=== PATIENT | female | born 1955 | race Two or more races ===

== ENCOUNTER 2019-12-11 11:33 | Outpatient (REF) | payer MEDICARE, SELFPAY | END 2019-12-11 11:34 | disposition home or self-care (01) | LOC: HO.WFDLDS 11:33 | PROVIDERS: Visit Provider Internal Medicine | DX: Z20.828 Contact with and (suspected) exposure to other viral communicable diseases (principal) | CPT/HCPCS: 87635 ==

== ENCOUNTER 2020-01-02 11:50 | Outpatient (REF) | payer MEDICARE, SELFPAY | END 2020-01-02 11:51 | disposition home or self-care (01) | LOC: HO.WFDLDS 11:50 | PROVIDERS: Visit Provider Internal Medicine | DX: Z20.828 Contact with and (suspected) exposure to other viral communicable diseases (principal) | CPT/HCPCS: U0003 ==

== ENCOUNTER 2020-03-21 10:27 | Outpatient (REF) | payer MEDICARE, SELFPAY | END 2020-03-21 10:28 | disposition home or self-care (01) | LOC: HO.WFDLDS 10:27 | PROVIDERS: Visit Provider Internal Medicine | DX: Z20.822 Contact with and (suspected) exposure to COVID-19 (principal) | CPT/HCPCS: 36415; C9803; U0003 ==

== ENCOUNTER 2020-04-18 08:24 | Outpatient (REF) | payer MEDICARE, SELFPAY ==
--- NOTE | ~2020-04-18 | MM_ITS ---
EXAMINATION: MM SCREENING DIGITAL BREAST TOMOSYNTHESIS, BILATERAL CLINICAL INFORMATION: Screening. Asymptomatic. The lifetime risk of breast cancer based on the Tyrer-Cuzick Model is 4%. COMPARISON: Mammography: 08/31/2018, 08/12/2017, 07/23/2016 TECHNIQUE: Digital breast tomosynthesis is performed in both the craniocaudal and mediolateral oblique views along with computer-aided detection (CAD). Synthesized 2D images are generated from the tomosynthesis. Additional bilateral CC views are provided. FINDINGS: There are scattered areas of fibroglandular density (ACR BI-RADS breast composition Category b). There are no significant masses, abnormal calcifications, or other abnormalities. There is a stable posterior central left breast approximately 1.6 x 1.3 cm. A smaller nodule anterior central left breast is decreased in size, now 0.4 cm. No significant changes from prior studies. MM/MM tomosynthesis screening BI IMPRESSION: No mammographic evidence of malignancy. ASSESSMENT: BI-RADS 2: Benign RECOMMENDATION: Routine annual mammography screening. This patient's information was entered into a reminder system with a target due date for their next mammogram.
== END 2020-04-18 08:25 | disposition home or self-care (01) ==
LOC: HO.MAMMO 08:24
PROVIDERS: Visit Provider Pediatrics
DX: Z12.31 Encounter for screening mammogram for malignant neoplasm of breast (principal)
CPT/HCPCS: 77063; 77067

== ENCOUNTER 2020-06-03 08:17 | Outpatient (REF) | payer MEDICARE, SELFPAY ==
[2020-06-03 10:48] LABS: Glucose Urine UA NEG (NEG); Leukocyte Esterase Urine NEG (NEG); Nitrite Urine NEG (NEG); Urine Blood NEG (NEG); Urine Ketones NEG (NEG); Urine Protein NEG (NEG-TRACE)
[2020-06-03 10:55] LABS: Alanine Aminotransferase 27 U/L (0-31); Albumin Level 4.2 g/dL (3.5-5.0); Alkaline Phosphatase 78 U/L (39-117); Anion Gap 12 (12-20); Aspartate Amino Transferase 24 U/L (5-31); Bilirubin Total 0.2 mg/dL (0.0-1.0); Blood Urea Nitrogen 13 mg/dL (9-16); Calcium 9.5 mg/dL (8.4-10.2); Carbon Dioxide 28 mmol/L (22-29); Chloride 105 mmol/L (96-108); Cholesterol 116 mg/dL; Estimated Glomerular Filt Rate > 60; Glucose Fasting 193 mg/dL (60-99); HDL Cholesterol 52 mg/dL; LDL Cholesterol Calculated 46 mg/dl; Sodium 140 mmol/L (135-145); Total Protein 7.2 g/dL (6.5-8.0); Triglycerides 91 mg/dL
[2020-06-03 11:09] LABS: Appearance Urine CLEAR; Color Urine YELLOW
[2020-06-03 11:16] LABS: TSH reflex Free T4 0.91 uIU/mL (0.32-4.0); Vitamin D 25-OH Total 77.8 ng/mL (>30)
[2020-06-03 11:25] LABS: Creatinine Urine 61.63 mg/dL; Microalbumin Urine < 5.0 mg/L
== END 2020-06-03 08:18 | disposition home or self-care (01) ==
LOC: HO.WFDLDS 08:17
PROVIDERS: Visit Provider Family Medicine
DX: Z00.00 Encounter for general adult medical examination without abnormal findings (principal); I10 Essential (primary) hypertension; E55.9 Vitamin D deficiency, unspecified; E11.9 Type 2 diabetes mellitus without complications; E03.9 Hypothyroidism, unspecified; E78.5 Hyperlipidemia, unspecified
CPT/HCPCS: 36415; 80053; 80061; 81003; 82043; 82306; 84443

== ENCOUNTER 2021-03-03 08:16 | Outpatient (REF) | payer MEDICARE, SELFPAY ==
[2021-03-03 11:36] LABS: Estimated Average Glucose 192 mg/dL; Hemoglobin A1c % 8.3 %
== END 2021-03-03 08:17 | disposition home or self-care (01) ==
LOC: HO.WFDLDS 08:16
PROVIDERS: Visit Provider Family Medicine
DX: R73.01 Impaired fasting glucose (principal)
CPT/HCPCS: 36415; 83036

== ENCOUNTER → 2021-03-26 15:07 | Outpatient (REF) | payer MEDICARE, SELFPAY ==
--- NOTE | 2021-03-26 15:09 | HM_ITS ---
Total monitoring time 6 days and 2 hours. Underlying rhythm is sinus. Minimum rate 44/Min. Maximum 160/Min. Average 80/Min. No atrial fibrillation or flutter or AV blocks or pauses. Rare supraventricular ectopy with minimal burden. 24 supraventricular episodes, longest 10 beats. Very rare ventricular ectopy. No patient events. MTDD
== END ==
LOC: HO.CARD 15:07
PROVIDERS: Visit Provider Family Medicine
DX: R00.0 Tachycardia, unspecified (principal); R00.2 Palpitations
CPT/HCPCS: 93242

== ENCOUNTER 2021-04-30 08:21 | Outpatient (REF) | payer MEDICARE, SELFPAY ==
--- NOTE | ~2021-04-30 | MM_ITS ---
EXAMINATION: MM SCREENING DIGITAL BREAST TOMOSYNTHESIS, BILATERAL CLINICAL INFORMATION: Screening. Asymptomatic. The lifetime risk of breast cancer based on the Tyrer-Cuzick Model is 4%. COMPARISON: Mammography: 04/18/2020, 08/31/2018, 08/12/2017, 07/23/2016, 04/16/2015, 03/20/2014 TECHNIQUE: Digital breast tomosynthesis is performed in both the craniocaudal and mediolateral oblique views along with computer-aided detection (CAD). Synthesized 2D images are generated from the tomosynthesis. Additional right CC and left MLO views are provided. FINDINGS: There are scattered areas of fibroglandular density (ACR BI-RADS breast composition Category b). There is a chronic smooth oval mass posterior central 3:00 left breast similar to multiple prior exams. The remainder of the breasts are also similar to prior studies. There is no significant mass or architectural abnormality or interval developing density. There are no abnormal calcifications. The axilla and skin contours are unremarkable. MM/MM tomosynthesis screening BI IMPRESSION: No significant changes from prior exams. ASSESSMENT: BI-RADS 2: Benign RECOMMENDATION: Routine annual mammography screening. This patient's information was entered into a reminder system with a target due date for their next mammogram.
== END 2021-04-30 08:22 | disposition home or self-care (01) ==
LOC: HO.MAMMO 08:21
PROVIDERS: PCP Family Medicine; Visit Provider Family Medicine
DX: Z12.31 Encounter for screening mammogram for malignant neoplasm of breast (principal)
CPT/HCPCS: 77063; 77067

== ENCOUNTER 2021-07-03 08:12 | Outpatient (REF) | payer OTHER, SELFPAY ==
[2021-07-03 10:38] LABS: MANUAL DIFF FLAG NO
[2021-07-03 10:42] LABS: Basophils Percent Auto 0.3 % (0-2); Eosinophils Absolute Auto 0.2 X10*3/uL (0.0-0.4); Eosinophils Percent Auto 1.4 % (0-4); Hematocrit 36.4 % (37.0-47.0); Imm Gran Abs Auto 0.03 X10*3/uL (0.00-0.03); Imm Gran Pct Auto 0.3 % (0.0-0.4); Lymphocytes Percent Auto 37.8 % (20-40); Mean Corpuscular HGB Conc 30.2 g/dl (31.0-35.0); Mean Corpuscular Hemoglobin 23.5 pg (27.0-33.0); Mean Corpuscular Volume 77.6 fL (80.0-98.0); Mean Platelet Volume 10.1 fL (9.4-12.3); Monocytes Absolute Auto 0.7 X10*3/uL (0.1-1.2); Monocytes Percent Auto 6.7 % (2-11); Neutrophils Absolute Auto 5.7 x10*3/uL (2.0-8.3); Neutrophils Percent Auto 53.5 % (45-73); Platelet Count 494 X10*3/uL (160-400); Red Blood Count 4.69 X10*6/uL (4.20-5.50); Red Cell Distribution Width 16.3 % (11.0-16.0); White Blood Count 10.6 X10*3/uL (4.8-10.8)
[2021-07-03 11:01] LABS: Appearance Urine CLEAR; Color Urine YELLOW; Glucose Urine UA NEG (NEG); Leukocyte Esterase Urine NEG (NEG); Nitrite Urine NEG (NEG); Urine Blood NEG (NEG); Urine Ketones 5 MG/DL (NEG); Urine Protein NEG (NEG-TRACE)
[2021-07-03 11:03] LABS: Alanine Aminotransferase 23 U/L (0-31); Albumin Level 4.1 g/dL (3.5-5.0); Alkaline Phosphatase 102 U/L (39-117); Anion Gap 15 (12-20); Aspartate Amino Transferase 19 U/L (5-31); Bilirubin Total 0.3 mg/dL (0.0-1.0); Blood Urea Nitrogen 17 mg/dL (9-16); Calcium 9.5 mg/dL (8.4-10.2); Carbon Dioxide 24 mmol/L (22-29); Chloride 104 mmol/L (96-108); Cholesterol 117 mg/dL; Estimated Glomerular Filt Rate > 60; Glucose Fasting 198 mg/dL (60-99); HDL Cholesterol 45 mg/dL; LDL Cholesterol Calculated 57 mg/dl; Potassium 5.1 mmol/L (3.3-5.1); Sodium 138 mmol/L (135-145); Total Protein 7.6 g/dL (6.5-8.0); Triglycerides 76 mg/dL
[2021-07-03 11:25] LABS: Creatinine Urine 145.11 mg/dL; Microalbum/Creatinine Ratio Ur 7.5 ug/mg cr
[2021-07-03 11:26] LABS: TSH reflex Free T4 0.56 uIU/mL (0.32-4.0)
== END 2021-07-03 08:13 | disposition home or self-care (01) ==
LOC: HO.WFDLDS 08:12
PROVIDERS: Visit Provider Family Medicine
DX: Z00.00 Encounter for general adult medical examination without abnormal findings (principal); I10 Essential (primary) hypertension
CPT/HCPCS: 36415; 80053; 80061; 81003; 82043; 84443; 85025

== ENCOUNTER → 2022-06-19 10:21 | Outpatient (BNVA) | payer OTHER, SELFPAY | PROVIDERS: PCP Family Medicine; Visit Provider Nurse Practitioner Family | DX: N39.3 Stress incontinence (female) (male) (principal) | CPT/HCPCS: 51798; 99202 ==

== ENCOUNTER 2022-06-23 11:02 | Outpatient (REF) | payer OTHER, SELFPAY ==
--- NOTE | ~2022-06-23 | MM_ITS ---
EXAMINATION: MM SCREENING DIGITAL BREAST TOMOSYNTHESIS, BILATERAL CLINICAL INFORMATION: Screening. Asymptomatic. The lifetime risk of breast cancer based on the Tyrer-Cuzick Model is 3.0%. COMPARISON: Mammography: 04/30/2021 and studies dating back to 03/14/2012. TECHNIQUE: Digital breast tomosynthesis is performed in both the craniocaudal and mediolateral oblique views along with computer-aided detection (CAD). Synthesized 2D images are generated from the tomosynthesis. FINDINGS: There are scattered areas of fibroglandular density (ACR BI-RADS breast composition Category b). There is a stable parenchymal pattern of the left breast with no new abnormal masses or suspicious grouping of microcalcifications. Within the inferior medial aspect of the right breast there is a tight grouping of calcifications which may represent calcifications within a fibroadenoma. Spot magnification views of the right breast recommended. MM/MM tomosynthesis screening BI IMPRESSION: Right breast calcifications for further evaluation. ASSESSMENT: BI-RADS 0: Incomplete - Need additional imaging evaluation. RECOMMENDATION: 1. Additional views of the right breast. 2. Targeted ultrasound if warranted after review of the additional views. 3. Radiology department staff will contact the patient for additional imaging. This patient's information was entered into a reminder system with a target due date for their next mammogram.
== END 2022-06-23 11:03 | disposition home or self-care (01) ==
LOC: HO.MAMMO 11:02
PROVIDERS: PCP Family Medicine; Visit Provider Family Medicine
DX: Z12.31 Encounter for screening mammogram for malignant neoplasm of breast (principal)
CPT/HCPCS: 77063; 77067

== ENCOUNTER 2022-07-03 09:02 | Outpatient (REF) | payer OTHER, SELFPAY ==
--- NOTE | ~2022-07-03 | US_ITS ---
EXAMINATION: US RETROPERITONEAL COMPLETE (RENAL) CLINICAL INFORMATION: Stress incontinence. COMPARISON: None available. TECHNIQUE: Real-time imaging of the kidneys and bladder. FINDINGS: RIGHT KIDNEY: 10.7 x 4.9 x 7.2 cm (SAG x AP x TRV). The kidney is normal in size, contour, and echogenicity. Renal cortical thickness is normal. No renal calculi or hydronephrosis. There is a 4.1 cm simple cyst in the mid to upper kidney. There is a 0.7 cm simple cyst in the mid kidney. No imaging follow-up recommended. LEFT KIDNEY: 10.8 x 5.4 x 5.4 cm (SAG x AP x TRV). The kidney is normal in size, contour, and echogenicity. Renal cortical thickness is normal. No calculi or focal parenchymal lesions. No hydronephrosis. There is a possible 3 mm calculus versus vascular calcification in the lower pole. BLADDER: Well distended and normal. Bilateral ureteral jets are demonstrated. Prevoid bladder volume is 300 mL. Postvoid bladder volume is 7 mL. US/US retroperitoneal comp IMPRESSION: Prevoid urinary bladder volume 300 mL and postvoid 7 mL. Possible Re: Millimeters calculus versus vascular calcification in the left lower kidney.
== END 2022-07-03 09:03 | disposition home or self-care (01) ==
LOC: HO.US 09:02
PROVIDERS: PCP Family Medicine; Visit Provider Nurse Practitioner Family
DX: N39.3 Stress incontinence (female) (male) (principal)
CPT/HCPCS: 76770

== ENCOUNTER 2022-07-06 09:33 | Outpatient (REF) | payer OTHER, SELFPAY ==
--- NOTE | ~2022-07-06 | MM_ITS ---
EXAMINATION: MM DIAGNOSTIC DIGITAL MAMMOGRAPHY, RIGHT CLINICAL INFORMATION: Recall from screening for question of tightly grouped punctate calcifications right breast. COMPARISON: Mammography: 06/23/2022, 04/30/2021, 04/18/2020 TECHNIQUE: Digital mammography is performed in the following views: Magnification CC, magnification LM x2. FINDINGS: There are scattered areas of fibroglandular density (ACR BI-RADS breast composition Category b). The additional magnification views show a few punctate calcifications in the central right breast. They appear less in number than on the screening exam suggesting superimposed digital processing artifact at time of screening. As a precaution, diagnostic right mammography in 6 months will be requested to confirm stability. Results are discussed with the patient at time of visit. MM/MM added views RT IMPRESSION: Additional views show a few calcifications central right breast. Probable benign, no suspicious findings at this time. ASSESSMENT: BI-RADS 3: Probably Benign RECOMMENDATION: Diagnostic right mammography in 6 months. This patient's information was entered into a reminder system with a target due date for their next mammogram.
== END 2022-07-06 09:34 | disposition home or self-care (01) ==
LOC: HO.MAMMO 09:33
PROVIDERS: PCP Family Medicine; Visit Provider Family Medicine
DX: R92.1 Mammographic calcification found on diagnostic imaging of breast (principal)
CPT/HCPCS: 77065

== ENCOUNTER → 2022-07-31 09:24 | Outpatient (BNVA) | payer OTHER, SELFPAY | PROVIDERS: PCP Family Medicine; Visit Provider Nurse Practitioner Family | DX: N39.3 Stress incontinence (female) (male) (principal); N28.1 Cyst of kidney, acquired; N20.0 Calculus of kidney | CPT/HCPCS: 51798; 99212 ==

== ENCOUNTER 2022-10-19 10:21 | Outpatient (REF) | payer OTHER, SELFPAY ==
[2022-10-19 11:54] LABS: Appearance Urine Clear; Color Urine Yellow; Glucose Urine UA Negative (Negative); Leukocyte Esterase Urine Moderate (2+) (Negative); Nitrite Urine Negative (Negative); UMIC TRIGGER UA YES; Urine Blood Negative (Negative); Urine Ketones Negative (Negative); Urine Protein Negative (Neg-Trace)
[2022-10-19 12:03] LABS: Basophils Absolute Auto 0.1 X10*3/uL (0.0-0.2); Basophils Percent Auto 0.6 % (0-2); Eosinophils Absolute Auto 0.2 X10*3/uL (0.0-0.4); Eosinophils Percent Auto 2.1 % (0-4); Hemoglobin 11.2 g/dl (12.0-16.0); Imm Gran Abs Auto 0.02 X10*3/uL (0.00-0.03); Imm Gran Pct Auto 0.2 % (0.0-0.4); Lymphocytes Absolute Auto 4.5 X10*3/uL (1.2-4.9); Lymphocytes Percent Auto 48.1 % (20-40); MANUAL DIFF FLAG SCAN; Mean Corpuscular HGB Conc 31.1 g/dl (31.0-35.0); Mean Corpuscular Volume 77.3 fL (80.0-98.0); Mean Platelet Volume 9.8 fL (9.4-12.3); Monocytes Absolute Auto 0.7 X10*3/uL (0.1-1.2); Monocytes Percent Auto 7.4 % (2-11); Neutrophils Absolute Auto 3.9 x10*3/uL (2.0-8.3); Neutrophils Percent Auto 41.6 % (45-73); Platelet Count 478 X10*3/uL (160-400); Red Blood Count 4.66 X10*6/uL (4.20-5.50); Red Cell Distribution Width 17.1 % (11.0-16.0); SCAN SMEAR FLAG 1; White Blood Count 9.4 X10*3/uL (4.8-10.8)
[2022-10-19 12:46] LABS: Alanine Aminotransferase 30 U/L (0-31); Albumin Level 4.5 g/dL (3.5-5.0); Alkaline Phosphatase 80 U/L (39-117); Anion Gap 15 (12-20); Aspartate Amino Transferase 22 U/L (5-31); Bilirubin Total 0.2 mg/dL (0.0-1.0); Blood Urea Nitrogen 11 mg/dL (9-16); Calcium 10.4 mg/dL (8.4-10.2); Carbon Dioxide 26 mmol/L (22-29); Chloride 107 mmol/L (96-108); Cholesterol 124 mg/dL (<200); Estimated Glomerular Filt Rate > 60; Glucose Fasting 115 mg/dL (60-99); HDL Cholesterol 57 mg/dL (>40); Iron 30 mcg/dL (30-160); LDL Cholesterol Calculated 50 mg/dL (<100); Percent Iron Saturation 8 % (15-50); Potassium 4.9 mmol/L (3.3-5.1); Sodium 143 mmol/L (135-145); Total Iron Binding Capacity 356 mcg/dL (228-428); Total Protein 8.1 g/dL (6.5-8.0); Triglycerides 89 mg/dL (<150); Unsaturated Iron Binding 326 ug/dL
[2022-10-19 12:49] LABS: Thyroid Stimulating Hormone 0.41 uIU/mL (0.32-4.0)
[2022-10-19 12:50] LABS: Creatinine Urine 33.35 mg/dL; Microalbumin Urine < 5.0 mg/L
[2022-10-19 13:00] LABS: Folate 12.2 ng/mL (> or = 4.0); Vitamin B12 204 pg/mL (200-900)
[2022-10-19 13:39] LABS: Bacteria Urine None Seen (None Seen); Hyaline Casts Urine 0-2 /LPF (0-2); RBC Urine 0-2 /HPF (0-2); Squamous Epithelial Cell Urine 0-2 /HPF (0-2); WBC Urine 21-50 /HPF (0-5)
[2022-10-19 13:52] LABS: SLIDE REVIEW VERIFIED
[2022-10-20 14:13] LABS: Triiodothyronine T3 Total 103 ng/dL (76-181)
== END 2022-10-19 10:22 | disposition home or self-care (01) ==
LOC: HO.WFDLDS 10:21
PROVIDERS: Visit Provider Family Medicine
DX: D50.9 Iron deficiency anemia, unspecified (principal); E53.8 Deficiency of other specified B group vitamins; Z00.00 Encounter for general adult medical examination without abnormal findings; E11.65 Type 2 diabetes mellitus with hyperglycemia; E03.9 Hypothyroidism, unspecified; I10 Essential (primary) hypertension
CPT/HCPCS: 36415; 80053; 80061; 81001; 82043; 82607; 82746; 83540; 84443; 84480; 85025

== ENCOUNTER 2022-11-13 15:12 | Outpatient (AMB) | payer OTHER, SELFPAY ==
[2022-11-13 15:20] VITALS: BP 130/68; PULSE 72; O2SAT 97; BMI 25.7
--- NOTE | 2022-11-13 15:20 | A.OFFPC_ITS ---
Vital Signs 11/13/22 15:20 Height 5 ft 4 in Weight 150 lb BMI 25.7 BP 130/68 Blood Pressure Location Lt brachial Position Sitting Pulse 72 Pulse Source Pulse Oximeter Pulse Oximetry (%) 97 Oxygen Delivery Method Room Air Intake Visit Reasons: CPE with f/u labs and health maint. Intake Note: Patient is here for physical today, discussion of lab results, and she would like to get an inhaler. As the cold weather comes, it gets harder for her to breathe. Allergies No Known Allergies Allergy (Verified 11/13/22 15:23) Tobacco use date assessed: 11/13/22 Fall risk assessment: No Falls in past year Last assessed Fall Risk: 11/13/22 Dental Screening Dental Screen Date: 11/13/22 Did you have a dental visit in the last 12 months?: Yes Did you have a dental problem in the last 6 months where you did not have access to dental care?: No Was dental information given to patient?: Patient has dentist HPI CPE with f/u labs and health maint. HPI Details 67 y/o female presents for a CPE with f/u labs and health maintenance. Labs were drawn 10/19/22. Reviewed labs with pt. Mild anemia. Triglycerides 89. TC 124. LDL 50. HDL 57. She is on simvastatin 20mg. Last A1c 07/21/22 6.8%. She is on dulaglutide 3mg and metformin 850mg t.i.d. A1c today 11/13/22 is 7.0%. R 3rd toe with melanotic stripe under nail Pt has complaints of dysuria today. Pt reports abd. bloating after she eats. She reports last mammogram was in June. She reports she has not had a bone density test in a long time. [facility] Surgical History Hx of cholecystectomy History of thyroid surgery H/O: hysterectomy Social History Housing: Apartment Alcohol intake: never Patient Tobacco Use Status: Never used Tobacco e-Cigarette/Vaping Use: Never Used Second Hand Smoke Exposure: No service: No Current occupational status: retired Current occupational exposures/hazards: No Cognitive needs: No Hearing needs: No Vision needs: No Questionnaire PHQ-9 Over the last 2 weeks, how often have you been bothered by any of the following problems? 1. Little interest or pleasure in doing things: not at all 2. Feeling down, depressed, or hopeless: not at all 3. Trouble falling or staying asleep, or sleeping too much: not at all 4. Feeling tired or having little energy: not at all 5. Poor appetite or overeating: not at all 6. Feeling bad about yourself - or that you are a failure or have let yourself or your family down: not at all 7. Trouble concentrating on things, such as reading the newspaper or watching television: not at all 8. Moving or speaking so slowly that other people could have noticed. Or the opposite - being so fidgety or restless that you have been moving around a lot more than usual: not at all 9. Thoughts that you would be better off or of hurting yourself in some way: not at all Total score: 0 Source: Developed by Drs. Jamil Peña, Keyonna Malone, Tarik Mercado and colleagues, with an educational celso from [email or web address]. Thrive Questionnaire Date Thrive assessed: 11/13/22 I am a: Patient What is your living situation today?: I have a steady place to live Within the past 12 months, did the food you bought not last and you didn't have the money to get more?: Never true Within the past 12 months, did you worry whether your food would run out before you got money to buy more?: Never true Do you have trouble paying for medicines?: No Do you have trouble getting transportation to medical appointments?: No Do you have trouble paying your heating and electricity bill?: No Do you have trouble taking care of your child, family member or friend?: No Do you have trouble with day-to-day activities such as bathing, preparing meals, shopping, managing finances, etc.?: No Are you currently unemployed and looking for a job?: No Are you interested in more education?: No AUDIT C Alcohol Use Questionnaire (AUDIT-C) 1. How often do you have a drink containing alcohol?: Never 3. How often do you have six or more drinks on one occasion?: Never Total Score: 0 CIRO-7 AMB Questionnaire CIRO-7 Date CIRO - 7 assessed: 11/13/22 Feeling nervous, anxious, or on edge: 0 = Not at all Not being able to stop or control worryin = Not at all Worrying too much about different things: 0 = Not at all Trouble relaxin = Not at all Being so restless that it is hard to sit still: 0 = Not at all Becoming easily annoyed or irritable: 0 = Not at all Feeling afraid as if something awful might happen: 0 = Not at all Total CIRO-7 score (0-4 normal; 5-9 mild; 10-14 moderate; 15-21 severe): 0 Source: Developed by Drs. Jamil Peña, Keyonna Malone, Tarik Mercado and colleagues, with an educational celso from [email or web address]. Review of Systems Const Denies chills, Denies fatigue, Denies fever(s), Denies headache(s) and Denies weakness Eyes Denies change in vision ENT Denies dizziness, Denies headache(s), Denies hearing loss, Denies nasal congestion, Denies sinus pain, Denies sinus pressure and Denies sore throat Card Denies chest pain, Denies lightheadedness, Denies dyspnea and Denies other (palpitations) Resp Denies cough, Denies dyspnea and Denies wheezing GI Details: Abd. bloating Denies abdominal pain, Denies melena, Denies hematochezia, Denies change in bowel habits, Denies dyspepsia and Denies nausea Denies hematuria and Denies dysuria Musc Denies abnormal gait, Denies myalgias, Denies arthralgias, Denies numbness and Denies tingling Skin/Breast Denies rash, Denies unusual bruising and Denies wounds Neuro Denies abnormal gait, Denies dizziness, Denies headache(s), Denies memory loss, Denies numbness, Denies Sensory deficit (Neuro), Denies tingling and Denies w eakness Psych Denies anxiety, Denies depression and Denies memory loss Endo Denies cold intolerance, Denies fatigue, Denies heat intolerance, Denies p olydipsia and Denies polyuria [place]/Lymph Denies easy bleeding and Denies easy bruising Aller/Immun Denies wheezing Physical exam (Primary Care) Vital Signs: Last Vital Signs Pulse 72 11/13/22 15:20 BP 130/68 11/13/22 15:20 Pulse Ox 97 11/13/22 15:20 Oxygen Delivery Method Room Air 11/13/22 15:20 BMI result Body Mass Index 25.7 Tobacco/Smoking Status: Tobacco use Status Tobacco use date assessed 11/13/22 11/13/22 15:25 Patient Tobacco Use Status Never used Tobacco 11/13/22 15:21 e-Cigarette/Vaping Use Never Used 11/13/22 15:21 PHQ-9: PHQ-9 Score PHQ-9: Total score 0 11/13/22 16:05 Thrive Assessment: Date of Thrive Assessment Date Thrive assessed 11/13/22 11/13/22 15:32 Const General: no acute distress, well developed, alert and awake Nutritional Appearance: well nourished Orientation/consciousness: patient oriented x3 HENMT Head: Yes normocephalic and Yes atraumatic Ears: hearing grossly normal bilaterally and TM's normal bilaterally General nose exam: Normal external nose present and Normal nares present Mouth: Normal oral and palatal mucosa present and moist mucous membranes Teeth and gingiva: dentition normal Throat: Yes posterior oropharynx normal Eyes General: appearance normal, both eyes and all related structures Pupils: Equal, round and reactive pupils present and Pupil accommodation reflex normal EOM: EOMs intact bilaterally Neck Neck: Yes normal visual inspection, Yes no lymphadenopathy and Yes trachea midline Thyroid: Thyroid normal Carotids: no bruits Lymphatic: no lymphadenopathy noted Chest Chest palpation & inspection: normal inspection of the chest Resp Effort & Inspection: normal respiratory effort Auscultation: clear to auscultation bilaterally Cardio Rate: regular rate Rhythm: regular rhythm Heart sounds: S1 normal heart sound present, S2 normal heart sound present, no gallops, no murmurs and no rubs Bruits: no abdominal aortic bruits and no carotid bruits GI Palpation (GI): No Abdominal aortic bruit present, Soft to palpation, nontender, No hepatosplenomegaly present and No Rebound tenderness present Auscultation: normal bowel sounds General: Yes no CVA tenderness Back/Spine/Pelvis Back: no CVA tenderness Cervical Spine: cervical ROM normal and No Cervical spine tenderness Thoracic/Lumbar Spine: thoraco-lumbar ROM normal, No pain with thoraco-lumbar ROM, No thoracic spinal tenderness and No lumbar spinal tenderness Skin Lesions: no lesions Rashes: no rashes Trauma: no lacerations or abrasions Wounds: no wounds Nails: normal Neuro General: patient oriented x3 Cranial nerves: Yes Equal, round and reactive pupils present Cognition (Neuro): normal cognition Gait exam (Neuro): Normal gait present Motor exam (neuro): 5/5 motor strength present throughout Sensory Exam: No Sensory deficit (Neuro) Deep tendon reflexes (DTR's): Right patellar reflex intensity grade: 2+ and Left patellar reflex intensity grade: 2+ Extrem Other: R 3rd toe with melanotic stripe under nail General: Yes normal to inspection and No edema Psych Appearance: grossly normal Affect: normal affect Attitude: cooperative Thought process: Normal thought process present Results AMB Hemoglobin A1c AMB Hemoglobin A1c 7.0 % Last Edit by Siena Velasco CMA on 11/13/22 16:30 Assessment and Plan Assessment & Plan (1) Adult general medical examination: Code(s): Z00.00 - Encounter for general adult medical examination without abnormal findings Plan: 67-year-old female presents for complete physical exam Encouraged healthy diet with active lifestyle and plenty of exercise (2) Mild anemia: Code(s): D64.9 - Anemia, unspecified Plan: Appears to be mild iron deficiency anemia She can use some iron as tolerated (3) Diabetes type 2, controlled: Code(s): E11.9 - Type 2 diabetes mellitus without complications Plan: A1c climbed from 6.8% to 7.0%; good control. Essentially at goal of less than 7.0% No change to her medications today. Encouraged healthy diabetic diet with active lifestyle and plenty of exercise (4) Essential hypertension: Code(s): I10 - Essential (primary) hypertension Plan: Blood pressure is controlled. Goal is less than 140/90 Continue current medications (5) Dysuria: Code(s): R30.0 - Dysuria Plan: Dysuria with LE activity in urine Will treat empirically. If still having symptoms, will recheck urine and consider referral to urology. (6) Hyperlipidemia: Code(s): E78.5 - Hyperlipidemia, unspecified Plan: Well controlled on simvastatin. Continue current medication (7) Asthma: Code(s): J45.909 - Unspecified asthma, uncomplicated Plan: Symptoms primarily with cold air. Refilled her albuterol and in preparation for fall/winter Lungs are clear today. Stable (8) Abdominal bloating: Code(s): R14.0 - Abdominal distension (gaseous) Plan: She can try simethicone Avoid triggers (9) Screening for osteoporosis: Code(s): Z13.820 - Encounter for screening for osteoporosis Plan: Due for bone density testing-ordered (10) Screening for colon cancer: Code(s): Z12.11 - Encounter for screening for malignant neoplasm of colon Plan: [place] [facility] [place] but she does not recall when exactly. Will get report. She was told to follow-up in 5 years. (11) Breast cancer screening by mammogram: Code(s): Z12.31 - Encounter for screening mammogram for malignant neoplasm of breast Plan: Required repeat views at last imaging. She has repeat views again in December. Already scheduled. Orders: Orders AMB Hemoglobin A1c Today Z13.9 - Encounter for screening, unspecified XR DEXA axial skeleton Today Z13.820 - Encounter for screening for osteoporosis Medications: New ferrous sulfate 325 mg PO DAILY 30 days 30 tabs 1RF amoxicillin 500 mg PO Q12H 7 days 14 tabs 0RF simethicone (Gas Relief (simethicone)) 80 mg PO BID-QID 30 days PRN 120 tabs 2RF abdominal distention Refilled albuterol sulfate 90 mcg/actuation 2 inhalations inhalation Q4-6H 30 days PRN 8.5 grams 4RF shortness of breath or wheezing Coding Level of Care Code Est Pt Level 4 (54053) Est Pt Prev Care >65y(84662) Diagnoses Adult general medical examination Z00.00 Mild anemia D64.9 Diabetes type 2, controlled E11.9 Essential hypertension I10 Dysuria R30.0 Hyperlipidemia E78.5 Asthma J45.909 Abdominal bloating R14.0 Screening for osteoporosis Z13.820 Screening for colon cancer Z12.11 Breast cancer screening by mammogram Z12.31
== END 2022-11-13 16:38 | disposition home or self-care (01) ==
PROVIDERS: PCP Family Medicine; Visit Provider Family Medicine
DX: Z00.00 Encounter for general adult medical examination without abnormal findings (principal); E11.9 Type 2 diabetes mellitus without complications; I10 Essential (primary) hypertension; J45.909 Unspecified asthma, uncomplicated; D64.9 Anemia, unspecified; R30.0 Dysuria; E78.5 Hyperlipidemia, unspecified; R14.0 Abdominal distension (gaseous)
CPT/HCPCS: 83036; 99397

== ENCOUNTER 2023-02-04 15:17 | Outpatient (REF) | payer OTHER, SELFPAY ==
--- NOTE | ~2023-02-04 | MM_ITS ---
EXAMINATION: MM DIAGNOSTIC DIGITAL BREAST TOMOSYNTHESIS, RIGHT CLINICAL INFORMATION: 6 month follow-up calcifications. COMPARISON: Mammography: 07/06/2022, 06/23/2022, 04/30/2021, 04/18/2020, and dating back to 2016. TECHNIQUE: Digital breast tomosynthesis is performed in both the craniocaudal and mediolateral oblique views along with computer-aided detection (CAD). Synthesized 2D images are generated from the tomosynthesis. In addition, 2-D spot compression right CC and ML views were obtained. FINDINGS: There are scattered areas of fibroglandular density (ACR BI-RADS breast composition Category b). The small focus of calcifications in the slightly inner approximate 3:00 location right breast have not significantly changed in morphology or number and remain probably benign. They have taken on a somewhat rounded appearance and may be related to an oil cyst. No additional suspicious findings in the right breast. MM/MM tomosynthesis diagnostic RT IMPRESSION: There are no significant changes from prior study. Calcifications in the 3:00 axis of the right breast, middle one third, have not changed and have a probably benign appearance. To be cautious, 1 year follow-up recommended when the patient is due for bilateral screening in 2023. ASSESSMENT: BI-RADS BI-RADS 3 - Probably benign finding(s) - 12 month follow-up suggested RECOMMENDATION: 12 month diagnostic follow up Results were provided to the patient at time of visit by the technologist. This patient's information was entered into a reminder system with a target due date for their next mammogram.
== END 2023-02-04 15:18 | disposition home or self-care (01) ==
LOC: HO.MAMMO 15:17
PROVIDERS: PCP Family Medicine; Visit Provider Family Medicine
DX: R92.1 Mammographic calcification found on diagnostic imaging of breast (principal)
CPT/HCPCS: 77061; 77065

== ENCOUNTER → 2023-02-04 15:20 | Outpatient (BNV) | payer OTHER, SELFPAY | PROVIDERS: PCP Family Medicine; Visit Provider Radiology Diagnostic Radiology | DX: R92.1 Mammographic calcification found on diagnostic imaging of breast (principal) | CPT/HCPCS: 77061; 77065 ==

== ENCOUNTER 2023-02-12 13:32 | Outpatient (AMB) | payer OTHER, SELFPAY ==
--- NOTE | 2023-02-12 14:21 | MHC.PC.OV ---
Vital Signs 02/12/23 14:22 Height 5 ft 4 in Weight 143 lb 8 oz BMI 24.6 BP 133/62 Blood Pressure Location Lt brachial Position Sitting Pulse 63 Pulse Source Pulse Oximeter Pulse Oximetry (%) 99 Oxygen Delivery Method Room Air Intake Visit Reasons: Follow-up diabetes and hypertension Intake Note: Patient is here to follow up on diabetes and hypertension. Allergies No Known Allergies Allergy (Verified 02/12/23 14:23) Tobacco use date assessed: 02/12/23 Fall risk assessment: No Falls in past year Last assessed Fall Risk: 02/12/23 Dental Screening Dental Screen Date: 02/12/23 Did you have a dental visit in the last 12 months?: Yes Did you have a dental problem in the last 6 months where you did not have access to dental care?: No Was dental information given to patient?: Patient has dentist HPI Follow-up diabetes and hypertension HPI Details 67 y/o female presents to f/u diabetes and hypertension. Pt had mild anemia and started her on iron. Last A1c 11/13/22 7.0%. She is on dulaglutide 3mg and metformin 850mg t.i.d. A1c today 02/12/23 is 6.4%. Blood pressure today 133/62. She is on lisinopril 10mg daily. PFSH Surgical History Hx of cholecystectomy History of thyroid surgery H/O: hysterectomy Social History Housing: Apartment Alcohol intake: never Patient Tobacco Use Status: Never used Tobacco e-Cigarette/Vaping Use: Never Used Second Hand Smoke Exposure: No service: No Current occupational status: retired Current occupational exposures/hazards: No Cognitive needs: No Hearing needs: No Vision needs: No Questionnaire Thrive Questionnaire Date Thrive assessed: 11/13/22 CIRO-7 AMB Questionnaire CIRO-7 Date CIRO - 7 assessed: 11/13/22 Source: Developed by Drs. Jamil Peña, Keyonna Malone, Tarik Mercado and colleagues, with an educational celso from [employer]. Review of Systems Const Denies chills, Denies fatigue, Denies fever(s), Denies headache(s) and Denies weakness ENT Denies dizziness and Denies headache(s) Card Denies chest pain, Denies lightheadedness, Denies dyspnea and Denies other (Palpitations) Resp Denies cough, Denies dyspnea, Denies wheezing and Denies other ( shortness of breath) Musc Denies numbness and Denies tingling Neuro Denies dizziness, Denies headache(s), Denies numbness, Denies tingling, Denies paresthesias and Denies weakness Psych Denies anxiety and Denies depression Endo Denies fatigue Aller/Immun Denies wheezing Physical exam (Primary Care) Vital Signs: Last Vital Signs Pulse 63 02/12/23 14:22 BP 133/62 02/12/23 14:22 Pulse Ox 99 02/12/23 14:22 Oxygen Delivery Method Room Air 02/12/23 14:22 BMI result Body Mass Index 24.6 Tobacco/Smoking Status: Tobacco use Status Tobacco use date assessed 02/12/23 02/12/23 14:28 Patient Tobacco Use Status Never used Tobacco 02/12/23 14:28 e-Cigarette/Vaping Use Never Used 02/12/23 14:28 Thrive Assessment: Date of Thrive Assessment Date Thrive assessed 11/13/22 02/12/23 14:28 Const General: no acute distress and well developed Nutritional Appearance: well nourished Orientation/consciousness: patient oriented x3 [facility] Head: Yes normocephalic and Yes atraumatic Eyes General: appearance normal, both eyes and all related structures Pupils: Equal, round and reactive pupils present EOM: EOMs intact bilaterally Resp Effort & Inspection: normal respiratory effort Auscultation: clear to auscultation bilaterally Cardio Rate: regular rate Rhythm: regular rhythm Heart sounds: S1 normal heart sound present, S2 normal heart sound present, no gallops, no murmurs and no rubs Neuro General: patient oriented x3 and gait normal Cranial nerves: Yes Equal, round and reactive pupils present Psych Affect: normal affect Results AMB Hemoglobin A1c AMB Hemoglobin A1c 6.4 % Last Edit by Siena Velasco CMA on 02/12/23 15:17 Assessment and Plan Assessment & Plan (1) Diabetes type 2, controlled: Code(s): E11.9 - Type 2 diabetes mellitus without complications Plan: A1c?6.4%.??Goal?is?less?than?7.0% Patient?notes?shakiness?and?some?low?blood?sugars Will?decrease?glipizide?to?2.5?mg?b.i.d. Continue?Trulicity?and?metformin?as?prescribed Had?last?eye?exam?a?few?days?ago. (2) Essential hypertension: Code(s): I10 - Essential (primary) hypertension Plan: Blood?pressure?is?controlled.??Goal?is?less?than?140/90 Continue?current?medication (3) Mild anemia: Code(s): D64.9 - Anemia, unspecified Plan: She?is?taking?iron Will?have?her?get?her?blood?drawn?prior?to?next?visit?and?follow-up (4) Screening for osteoporosis: Code(s): Z13.820 - Encounter for screening for osteoporosis Plan: Had?ordered?bone?density?test?but?she?has?not?had?this?scheduled?yet.??Will?ask?the?office?to?check?on?the?status?of?this?order Orders: Orders AMB Hemoglobin A1c Today Z13.9 - Encounter for screening, unspecified Medications: Changed From glipizide 5 mg PO BID 30 days 180 tabs 3RF To glipizide 2.5 mg PO BID 60 tabs 3RF 30 days Coding Level of Care Code Est Pt Level 4 (79593) Diagnoses Diabetes type 2, controlled E11.9 Essential hypertension I10 Mild anemia D64.9 Screening for osteoporosis Z13.820
[2023-02-12 14:22] VITALS: BP 133/62; PULSE 63; O2SAT 99; BMI 24.6
== END 2023-02-12 15:28 | disposition home or self-care (01) ==
PROVIDERS: PCP Family Medicine; Visit Provider Family Medicine
DX: E11.9 Type 2 diabetes mellitus without complications (principal); I10 Essential (primary) hypertension; D64.9 Anemia, unspecified; Z13.820 Encounter for screening for osteoporosis
CPT/HCPCS: 83036; 99214

== ENCOUNTER 2023-04-12 09:16 | Outpatient (REF) | payer OTHER, SELFPAY ==
[2023-04-12 11:25] LABS: MANUAL DIFF FLAG NO
[2023-04-12 12:23] LABS: Basophils Absolute Auto 0.1 X10*3/uL (0.0-0.2); Basophils Percent Auto 0.6 % (0-2); Eosinophils Absolute Auto 0.2 X10*3/uL (0.0-0.4); Eosinophils Percent Auto 2.5 % (0-4); Hematocrit 38.9 % (37.0-47.0); Hemoglobin 12.1 g/dl (12.0-16.0); Imm Gran Abs Auto 0.01 X10*3/uL (0.00-0.03); Imm Gran Pct Auto 0.1 % (0.0-0.4); Lymphocytes Absolute Auto 3.9 X10*3/uL (1.2-4.9); Lymphocytes Percent Auto 45.9 % (20-40); Mean Corpuscular HGB Conc 31.1 g/dl (31.0-35.0); Mean Corpuscular Hemoglobin 25.4 pg (27.0-33.0); Mean Corpuscular Volume 81.6 fL (80.0-98.0); Mean Platelet Volume 10.3 fL (9.4-12.3); Monocytes Absolute Auto 0.6 X10*3/uL (0.1-1.2); Monocytes Percent Auto 7.5 % (2-11); Neutrophils Absolute Auto 3.7 x10*3/uL (2.0-8.3); Neutrophils Percent Auto 43.4 % (45-73); Platelet Count 414 X10*3/uL (160-400); Red Blood Count 4.77 X10*6/uL (4.20-5.50); Red Cell Distribution Width 15.7 % (11.0-16.0); White Blood Count 8.5 X10*3/uL (4.8-10.8)
[2023-04-12 13:08] LABS: Alanine Aminotransferase 21 U/L (0-31); Albumin Level 4.3 g/dL (3.5-5.0); Alkaline Phosphatase 88 U/L (39-117); Anion Gap 16 (12-20); Aspartate Amino Transferase 19 U/L (5-31); Bilirubin Total 0.3 mg/dL (0.0-1.0); Blood Urea Nitrogen 7 mg/dL (9-16); Calcium 9.9 mg/dL (8.4-10.2); Carbon Dioxide 25 mmol/L (22-29); Chloride 106 mmol/L (96-108); Estimated Glomerular Filt Rate > 60; Glucose Fasting 107 mg/dL (60-99); Potassium 4.9 mmol/L (3.3-5.1); Sodium 142 mmol/L (135-145); Total Protein 7.9 g/dL (6.5-8.0)
[2023-04-12 13:10] LABS: Free T4 (Free Thyroxine) 1.29 ng/dL (0.71-1.85)
[2023-04-12 14:23] LABS: Appearance Urine Clear; Color Urine Yellow; Glucose Urine UA Negative (Negative); Leukocyte Esterase Urine Trace (Negative); Nitrite Urine Negative (Negative); PH 6.5 (5.0-9.0); Specific Gravity - Urine 1.015 (1.005-1.025); UMIC TRIGGER UA YES; Urine Blood Negative (Negative); Urine Ketones Negative (Negative); Urine Protein Negative (Neg-Trace)
[2023-04-12 14:27] LABS: Bacteria Urine 2+ (None Seen); Hyaline Casts Urine 0-2 /LPF (0-2); RBC Urine 0-2 /HPF (0-2); Squamous Epithelial Cell Urine 0-2 /HPF (0-2)
== END 2023-04-12 09:17 | disposition home or self-care (01) ==
LOC: HO.WFDLDS 09:16
PROVIDERS: Visit Provider Family Medicine
DX: Z00.00 Encounter for general adult medical examination without abnormal findings (principal); D64.9 Anemia, unspecified; E11.9 Type 2 diabetes mellitus without complications; E03.9 Hypothyroidism, unspecified
CPT/HCPCS: 36415; 80053; 81001; 84439; 85025

== ENCOUNTER 2023-05-14 09:14 | Outpatient (AMB) | payer OTHER, SELFPAY ==
--- NOTE | 2023-05-14 09:16 | A.OFFPC_ITS ---
Vital Signs 05/14/23 09:17 Height 5 ft 4 in Weight 146 lb 4 oz BMI 25.1 BP 138/80 Blood Pressure Location Rt brachial Position Sitting Pulse 70 Pulse Source Pulse Oximeter Pulse Oximetry (%) 98 Oxygen Delivery Method Room Air Intake Visit Reasons: Follow-up diabetes and hypertension Intake Note: Pt presents to the office today for a follow up for diabetes and hypertension. Pt states she is feeling well but states she has been having issues with her stomach and having diarrhea often. Allergies No Known Allergies Allergy (Verified 05/14/23 09:21) Tobacco use date assessed: 05/14/23 Fall risk assessment: No Falls in past year Last assessed Fall Risk: 05/14/23 Dental Screening Dental Screen Date: 05/14/23 Did you have a dental visit in the last 12 months?: Yes Did you have a dental problem in the last 6 months where you did not have access to dental care?: No Was dental information given to patient?: Patient has dentist HPI Follow-up diabetes and hypertension HPI Details 67 y/o female presents today to f/u reena chisholm, hypertension. A1c today 05/14/23 is 6.6%. She is on glipizide 2.5mg b.i.d., dulaglutide 3mg, metformin 850mg Blood pressure today 138/80. She is on lisinopril 10mg daily. Pt reports intermittent diarrhea. Denies any abd. pain/blood in stools. Pt also notes some constipation. [facility] Surgical History Hx of cholecystectomy History of thyroid surgery H/O: hysterectomy Social History Housing: Apartment Alcohol intake: never Patient Tobacco Use Status: Never used Tobacco e-Cigarette/Vaping Use: Never Used Second Hand Smoke Exposure: No service: No Current occupational status: retired Current occupational exposures/hazards: No Cognitive needs: No Hearing needs: No Vision needs: No Questionnaire PHQ-9 Over the last 2 weeks, how often have you been bothered by any of the following problems? 1. Little interest or pleasure in doing things: not at all 2. Feeling down, depressed, or hopeless: not at all 3. Trouble falling or staying asleep, or sleeping too much: not at all 4. Feeling tired or having little energy: not at all 5. Poor appetite or overeating: not at all 6. Feeling bad about yourself - or that you are a failure or have let yourself or your family down: not at all 7. Trouble concentrating on things, such as reading the newspaper or watching television: not at all 8. Moving or speaking so slowly that other people could have noticed. Or the opposite - being so fidgety or restless that you have been moving around a lot more than usual: not at all 9. Thoughts that you would be better off or of hurting yourself in some way: not at all Total score: 0 Source: Developed by Drs. Jamil Peña, Keyonna Malone, Tarik Mercado and colleagues, with an educational celso from [employer]. Thrive Questionnaire Date Thrive assessed: 11/13/22 I am a: Patient What is your living situation today?: I have a steady place to live Within the past 12 months, did the food you bought not last and you didn't have the money to get more?: Never true Within the past 12 months, did you worry whether your food would run out before you got money to buy more?: Never true Do you have trouble paying for medicines?: No Do you have trouble getting transportation to medical appointments?: No Do you have trouble paying your heating and electricity bill?: No Do you have trouble taking care of your child, family member or friend?: No Do you have trouble with day-to-day activities such as bathing, preparing meals, shopping, managing finances, etc.?: No Are you currently unemployed and looking for a job?: No Are you interested in more education?: No THRIVE Score: 0 AUDIT C Alcohol Use Questionnaire (AUDIT-C) 1. How often do you have a drink containing alcohol?: Never 3. How often do you have six or more drinks on one occasion?: Never Total Score: 0 CIRO-7 AMB Questionnaire CIRO-7 Date CIRO - 7 assessed: 11/13/22 Feeling nervous, anxious, or on edge: 0 = Not at all Not being able to stop or control worryin = Not at all Worrying too much about different things: 0 = Not at all Trouble relaxin = Not at all Being so restless that it is hard to sit still: 0 = Not at all Becoming easily annoyed or irritable: 0 = Not at all Feeling afraid as if something awful might happen: 0 = Not at all Total CIRO-7 score (0-4 normal; 5-9 mild; 10-14 moderate; 15-21 severe): 0 Source: Developed by Drs. Jamil Peña, Keyonna Malone, Tarik Mercado and colleagues, with an educational celso from [employer]. Review of Systems Const Denies chills, Denies fatigue, Denies fever(s), Denies headache(s) and Denies weakness ENT Denies dizziness and Denies headache(s) Card Denies dyspnea Resp Denies cough, Denies dyspnea, Denies wheezing and Denies other (shortness of breath) GI Reports diarrhea Musc Denies numbness and Denies tingling Neuro Denies dizziness, Denies headache(s), Denies numbness, Denies tingling and Denies weakness Psych Denies anxiety and Denies depression Endo Denies fatigue Aller/Immun Denies wheezing Physical exam (Primary Care) Vital Signs: Last Vital Signs Pulse 70 05/14/23 09:17 BP 138/80 05/14/23 09:17 Pulse Ox 98 05/14/23 09:17 Oxygen Delivery Method Room Air 05/14/23 09:17 BMI result Body Mass Index 25.1 Tobacco/Smoking Status: Tobacco use Status Tobacco use date assessed 05/14/23 05/14/23 09:26 Patient Tobacco Use Status Never used Tobacco 05/14/23 09:16 e-Cigarette/Vaping Use Never Used 05/14/23 09:16 PHQ-9: PHQ-9 Score PHQ-9: Total score 0 05/14/23 09:44 Thrive Assessment: Date of Thrive Assessment Date Thrive assessed 11/13/22 05/14/23 09:16 Const General: well developed; No acute distress Nutritional Appearance: well nourished Orientation/consciousness: patient oriented x3 HENMT Head: Yes normocephalic and Yes atraumatic Eyes General: appearance normal, both eyes and all related structures Pupils: Equal, round and reactive pupils present EOM: EOMs intact bilaterally Resp Effort & Inspection: normal respiratory effort Auscultation: clear to auscultation bilaterally Cardio Rate: regular rate Rhythm: regular rhythm Heart sounds: S1 normal heart sound present, S2 normal heart sound present, no gallops, no murmurs and no rubs Neuro General: patient oriented x3 and gait normal Cranial nerves: Yes Equal, round and reactive pupils present Psych Affect: normal affect Results AMB Hemoglobin A1c AMB Hemoglobin A1c 6.6 % Last Edit by Bhavani Padilla MA on 05/14/23 09:41 Results Reviewed Results Reviewed: Laboratory Last Values Hgb A1c (Clinic) 6.6 % (4.0-6.0) H 05/14/23 09:38 Assessment and Plan Assessment & Plan (1) Diabetes type 2, controlled: Code(s): E11.9 - Type 2 diabetes mellitus without complications Plan: A1c?6.6%.??Goal?is?less?than?7.0%. Good?control Continue?current?medication?regimen (2) Osteoporosis: Code(s): M81.0 - Age-related osteoporosis without current pathological fracture Plan: Encouraged?her?to?get?bone?density?test DEXA?scan?is?ordered (3) Essential hypertension: Code(s): I10 - Essential (primary) hypertension Plan: Blood?pressure?is?controlled.??Goal?is?less?than?140/90 Continue?current?medication (4) Diarrhea: Code(s): R19.7 - Diarrhea, unspecified Plan: Ongoing?intermittent?diarrhea Check?stool?studies (5) Mild anemia: Code(s): D64.9 - Anemia, unspecified Plan: Resolved. She?will?decrease?iron?to?2?to?3?times?a?week?and?this?may?help?with?any?GI?prob lems?as?above. Orders: Orders GI Panel Today R19.7 - Diarrhea, unspecified AMB Hemoglobin A1c Today E11.65 - Type 2 diabetes mellitus with hyperglycemia CDiff Gene PCR Today R19.7 - Diarrhea, unspecified Coding Level of Care Code Est Pt Level 4 (40868) Diagnoses Diabetes type 2, controlled E11.9 Osteoporosis M81.0 Essential hypertension I10 Diarrhea R19.7 Mild anemia D64.9
[2023-05-14 09:17] VITALS: BP 138/80; PULSE 70; O2SAT 98; BMI 25.1
== END 2023-05-14 10:08 | disposition home or self-care (01) ==
PROVIDERS: PCP Family Medicine; Visit Provider Family Medicine
DX: E11.9 Type 2 diabetes mellitus without complications (principal); M81.0 Age-related osteoporosis without current pathological fracture; I10 Essential (primary) hypertension; R19.7 Diarrhea, unspecified; D64.9 Anemia, unspecified; E11.65 Type 2 diabetes mellitus with hyperglycemia
CPT/HCPCS: 83036; 99214

== ENCOUNTER 2023-05-17 08:10 | Outpatient (REF) | payer OTHER, SELFPAY ==
[2023-05-17 11:01] LABS: MANUAL DIFF FLAG NO
[2023-05-17 11:07] LABS: Appearance Urine Clear; Color Urine Yellow; Glucose Urine UA Negative (Negative); Leukocyte Esterase Urine Moderate (2+) (Negative); Nitrite Urine Negative (Negative); Specific Gravity - Urine 1.015 (1.005-1.025); UMIC TRIGGER UA YES; Urine Blood Negative (Negative); Urine Ketones Negative (Negative); Urine Protein Negative (Neg-Trace)
[2023-05-17 11:14] LABS: Bacteria Urine 1+ (None Seen); Hyaline Casts Urine 0-2 /LPF (0-2); RBC Urine 0-2 /HPF (0-2); WBC Urine >50 /HPF (0-5)
[2023-05-17 11:22] LABS: Basophils Percent Auto 0.3 % (0-2); Eosinophils Absolute Auto 0.2 X10*3/uL (0.0-0.4); Eosinophils Percent Auto 1.8 % (0-4); Hematocrit 37.7 % (37.0-47.0); Imm Gran Abs Auto 0.04 X10*3/uL (0.00-0.03); Imm Gran Pct Auto 0.4 % (0.0-0.4); Lymphocytes Absolute Auto 4.1 X10*3/uL (1.2-4.9); Lymphocytes Percent Auto 36.4 % (20-40); Mean Corpuscular HGB Conc 31.8 g/dl (31.0-35.0); Mean Corpuscular Hemoglobin 26.5 pg (27.0-33.0); Mean Corpuscular Volume 83.2 fL (80.0-98.0); Mean Platelet Volume 9.9 fL (9.4-12.3); Monocytes Absolute Auto 0.8 X10*3/uL (0.1-1.2); Monocytes Percent Auto 7.1 % (2-11); Neutrophils Absolute Auto 6.1 x10*3/uL (2.0-8.3); Platelet Count 460 X10*3/uL (160-400); Red Blood Count 4.53 X10*6/uL (4.20-5.50); Red Cell Distribution Width 16.2 % (11.0-16.0); White Blood Count 11.4 X10*3/uL (4.8-10.8)
== END 2023-05-17 08:11 | disposition home or self-care (01) ==
LOC: HO.WFDLDS 08:10
PROVIDERS: Visit Provider Family Medicine
DX: Z00.00 Encounter for general adult medical examination without abnormal findings (principal); D50.9 Iron deficiency anemia, unspecified
CPT/HCPCS: 36415; 81001; 81003; 85025

== ENCOUNTER 2023-05-19 12:11 | Outpatient (REF) | payer OTHER, SELFPAY ==
[2023-05-19 14:40] LABS: CDiff Gene PCR NEGATIVE (Negative)
[2023-05-19 15:59] LABS: Adenovirus F 40/41 Not Detected (Not Detect.); Astrovirus Not Detected (Not Detect.); Campylobacter Not Detected (Not Detect.); Cryptosporidium Not Detected (Not Detect.); Cyclospora cayetanensis Not Detected (Not Detect.); E. coli EAEC Not Detected (Not Detect.); E. coli EPEC Not Detected (Not Detect.); E. coli ETEC Not Detected (Not Detect.); E. coli STEC Not Detected (Not Detect.); Entamoeba histolytica Not Detected (Not Detect.); Giardia lamblia Not Detected (Not Detect.); Norovirus GI/GII Not Detected (Not Detect.); Plesiomonas shigelloides Not Detected (Not Detect.); Rotavirus A Not Detected (Not Detect.); Salmonella Not Detected (Not Detect.); Sapovirus Not Detected (Not Detect.); Shigella sp./EIEC Not Detected (Not Detect.); Vibrio Not Detected (Not Detect.); Vibrio Cholerae Not Detected (Not Detect.); Yersinia enterocolitica Not Detected (Not Detect.)
== END 2023-05-19 12:12 | disposition home or self-care (01) ==
LOC: HO.LNP 12:11
PROVIDERS: Visit Provider Family Medicine
DX: R19.7 Diarrhea, unspecified (principal)
CPT/HCPCS: 87493; 87507

== ENCOUNTER 2023-06-04 12:58 | Outpatient (AMB) | payer OTHER, SELFPAY ==
--- NOTE | 2023-06-04 12:51 | A.OFFPC_ITS ---
Intake Visit Reasons: f/u labs Intake Note: Patient is calling to follow up on her labs today. Allergies No Known Allergies Allergy (Verified 05/14/23 09:21) Medication List - Last Reconciled 06/04/23 by Ricardo Gardner MD acetaminophen 500 mg PO Q6H PRN albuterol sulfate 90 mcg/actuation 2 inhalations inhalation Q4-6H PRN 30 days blood sugar diagnostic As directed blood sugar diagnostic (FreeStyle Lite Strips) DX: E11.9, test blood sugar once a day, 90 days blood-glucose meter (FreeStyle Lite Meter kit) DX: E11.9, test blood sugar once a day, duration 999 days cholecalciferol (vitamin D3) 50 mcg PO BID dulaglutide 3 mg (0.5 mL) subcut QWEEK 90 days ferrous sulfate 325 mg PO DAILY 30 days glipizide 2.5 mg PO BID 30 days lancets As directed lancets (FreeStyle Lancets) Once a Day As directed levothyroxine 100 mcg PO DAILY 90 days lisinopril 10 mg PO DAILY 90 days metformin 850 mg PO TIDWMEAL 30 days oxybutynin chloride ER 10 mg PO DAILY 90 days pantoprazole 40 mg PO QAM 90 days pyridoxine (vitamin B6) 100 mg PO DAILY 90 days simethicone (Gas Relief (simethicone)) 80 mg PO BID-QID PRN 30 days simvastatin 20 mg PO BEDTIME 90 days Tobacco use date assessed: 06/04/23 Fall risk assessment: No Falls in past year Last assessed Fall Risk: 06/04/23 Dental Screening Dental Screen Date: 05/14/23 HPI f/u labs HPI Details Anemia?appears?resolved GI?panel?negative?including?C?diff Still?gets?occasional?diarrhea?but?notes?that?this?is?when?she?eats?trigger?food s?which?she?is?avoiding PFSH Surgical History Hx of cholecystectomy History of thyroid surgery H/O: hysterectomy Social History Housing: Apartment Alcohol intake: never Patient Tobacco Use Status: Never used Tobacco e-Cigarette/Vaping Use: Never Used Second Hand Smoke Exposure: No service: No Current occupational status: retired Current occupational exposures/hazards: No Cognitive needs: No Hearing needs: No Vision needs: No Questionnaire Thrive Questionnaire Date Thrive assessed: 11/13/22 CIRO-7 AMB Questionnaire CIRO-7 Date CIRO - 7 assessed: 11/13/22 Source: Developed by Drs. Jamil Peña, Keyonna Malone, Tarik Mercado and colleagues, with an educational celso from [employer]. Physical exam (Primary Care) Tobacco/Smoking Status: Tobacco use Status Tobacco use date assessed 06/04/23 06/04/23 12:53 Patient Tobacco Use Status Never used Tobacco 06/04/23 12:53 e-Cigarette/Vaping Use Never Used 06/04/23 12:53 Thrive Assessment: Date of Thrive Assessment Date Thrive assessed 11/13/22 06/04/23 12:53 Telehealth Telehealth Location of provider rendering services: practice address Location of patient: address on file Patient Identification confirmed using: Name, : Yes Telehealth method: voice only Patient verbally consented to treatment: Yes Patient verbally consented to billing insurance company: Yes Patient informed of any privacy concerns related to visit: Yes Minutes spent on Phone/Video with Pt.: 5 Assessment and Plan Assessment & Plan (1) Diarrhea: Code(s): R19.7 - Diarrhea, unspecified Plan: Improved?when?avoiding?trigger?foods GI?panel?was?negative C?diff?negative (2) Mild anemia: Code(s): D64.9 - Anemia, unspecified Plan: Resolved Coding Level of Care Code Tele Est Pt Level 2 (09188) Diagnoses Diarrhea R19.7 Mild anemia D64.9
== END 2023-06-08 08:53 | disposition home or self-care (01) ==
LOC: HO.HMGFM 12:58
PROVIDERS: PCP Family Medicine; Visit Provider Family Medicine
DX: R19.7 Diarrhea, unspecified (principal); D64.9 Anemia, unspecified
CPT/HCPCS: 99441

== ENCOUNTER 2023-08-20 10:46 | Outpatient (AMB) | payer OTHER, SELFPAY ==
--- NOTE | 2023-08-20 11:01 | MHC.PC.OV ---
Vital Signs 08/20/23 11:03 Height 5 ft 4 in Weight 148 lb BMI 25.4 BP 132/62 Blood Pressure Location Lt brachial Position Sitting Pulse 62 Pulse Source Pulse Oximeter Pulse Oximetry (%) 97 Oxygen Delivery Method Room Air Intake Visit Reasons: follow up diabetes Intake Note: Patient is here for follow up on diabetes. Allergies No Known Allergies Allergy (Verified 08/20/23 11:02) Medication List - Last Reconciled 08/20/23 by Ricardo Gardner MD acetaminophen 500 mg PO Q6H PRN albuterol sulfate 90 mcg/actuation 2 inhalations inhalation Q4-6H PRN 30 days blood sugar diagnostic As directed blood sugar diagnostic (FreeStyle Lite Strips) DX: E11.9, test blood sugar once a day, 90 days blood-glucose meter (FreeStyle Lite Meter kit) DX: E11.9, test blood sugar once a day, duration 999 days cholecalciferol (vitamin D3) 50 mcg PO BID dulaglutide 3 mg (0.5 mL) subcut QWEEK 90 days ferrous sulfate 325 mg PO DAILY 30 days glipizide 2.5 mg PO BID 30 days lancets As directed lancets (FreeStyle Lancets) Once a Day As directed levothyroxine 100 mcg PO DAILY 90 days lisinopril 10 mg PO DAILY 90 days metformin 850 mg PO TIDWMEAL 30 days oxybutynin chloride ER 10 mg PO DAILY 90 days pantoprazole 40 mg PO QAM 90 days pyridoxine (vitamin B6) 100 mg PO DAILY 90 days simethicone (Gas Relief (simethicone)) 80 mg PO BID-QID PRN 30 days simvastatin 20 mg PO BEDTIME 90 days Tobacco use date assessed: 08/20/23 Fall risk assessment: No Falls in past year Last assessed Fall Risk: 08/20/23 Dental Screening Dental Screen Date: 05/14/23 HPI follow up diabetes HPI Details 68 y/o female presents to f/u diabetes. Last A1c 05/14/23 6.6%. A1c today 08/20/23 is 7.3%. She is on dulaglutide 3mg, metformin 850mg t.i.d. They note pt had been off her trulicity for awhile and had just recently restarted this. [facility] Surgical History Hx of cholecystectomy History of thyroid surgery H/O: hysterectomy Social History Housing: Apartment Alcohol intake: never Patient Tobacco Use Status: Never used Tobacco e-Cigarette/Vaping Use: Never Used Second Hand Smoke Exposure: No service: No Current occupational status: retired Current occupational exposures/hazards: No Cognitive needs: No Hearing needs: No Vision needs: No Questionnaire Thrive Questionnaire Date Thrive assessed: 11/13/22 CIRO-7 AMB Questionnaire CIRO-7 Date CIRO - 7 assessed: 11/13/22 Source: Developed by Drs. Jamil Peña, Keyonna Malone, Tarik Mercado and colleagues, with an educational celso from [employer]. Review of Systems Const Denies chills, Denies fatigue, Denies fever(s), Denies headache(s) and Denies weakness ENT Denies dizziness and Denies headache(s) Card Denies dyspnea Resp Denies cough, Denies dyspnea, Denies wheezing and Denies other (shortness of breath) Musc Denies numbness and Denies tingling Neuro Denies dizziness, Denies headache(s), Denies numbness, Denies tingling and Denies weakness Psych Denies anxiety and Denies depression Endo Denies fatigue Aller/Immun Denies wheezing Physical exam (Primary Care) Vital Signs: Last Vital Signs Pulse 62 08/20/23 11:03 BP 132/62 08/20/23 11:03 Pulse Ox 97 08/20/23 11:03 Oxygen Delivery Method Room Air 08/20/23 11:03 BMI result Body Mass Index 25.4 Tobacco/Smoking Status: Tobacco use Status Tobacco use date assessed 08/20/23 08/20/23 11:06 Patient Tobacco Use Status Never used Tobacco 08/20/23 11:06 e-Cigarette/Vaping Use Never Used 08/20/23 11:06 Thrive Assessment: Date of Thrive Assessment Date Thrive assessed 11/13/22 08/20/23 11:06 Const General: well developed; No acute distress Nutritional Appearance: well nourished Orientation/consciousness: patient oriented x3 HENMT Head: Yes normocephalic and Yes atraumatic Eyes General: appearance normal, both eyes and all related structures Pupils: Equal, round and reactive pupils present EOM: EOMs intact bilaterally Resp Effort & Inspection: normal respiratory effort Auscultation: clear to auscultation bilaterally Cardio Rate: regular rate Rhythm: regular rhythm Heart sounds: S1 normal heart sound present, S2 normal heart sound present, no gallops, no murmurs and no rubs Neuro General: patient oriented x3 and gait normal Cranial nerves: Yes Equal, round and reactive pupils present Psych Affect: normal affect Assessment and Plan Assessment & Plan (1) Diabetes type 2, controlled: Code(s): E11.9 - Type 2 diabetes mellitus without complications Plan: A1c?was?7.3%?but?patient?was?without?her?Trulicity?for?a?couple?of?weeks. Goal?is?less?than?7.0% Now?has?Trulicity?again?and?will?continue?current?medication?regimen?including?this?and?metformin?and?glipizide. Continue?diabetic?diet Will?continue?to?follow?and?repeat?A1c?in?3?months. (2) Essential hypertension: Code(s): I10 - Essential (primary) hypertension Plan: Blood?pressure?is?controlled.??Goal?is?less?than?140/90 Continue?current?medication Orders: Orders AMB Hemoglobin A1c Today Z13.9 - Encounter for screening, unspecified Comprehensive [place]. Panel Fast Today Z00.00 - Encounter for general adult medical examination without abnormal findings Complete Blood Count Auto Diff Today Z00.00 - Encounter for general adult medical examination without abnormal findings Lipid Panel Today Z00.00 - Encounter for general adult medical examination without abnormal findings Microalbumin, Random (w Creat) Today I10 - Essential (primary) hypertension UA and rflx microscopic Today Z00.00 - Encounter for general adult medical examination without abnormal findings TSH reflex Free T4 Today Z00.00 - Encounter for general adult medical examination without abnormal findings Referrals Gastroenterology Referral Z12.11 - Encounter for screening for malignant neoplasm of colon Coding Level of Care Code Est Pt Level 3 (60684) Diagnoses Diabetes type 2, controlled E11.9 Essential hypertension I10
[2023-08-20 11:03] VITALS: BP 132/62; PULSE 62; O2SAT 97; BMI 25.4
== END 2023-08-20 11:57 | disposition home or self-care (01) ==
PROVIDERS: PCP Family Medicine; Visit Provider Family Medicine
DX: E11.9 Type 2 diabetes mellitus without complications (principal); I10 Essential (primary) hypertension
CPT/HCPCS: 83036; 99213

== ENCOUNTER 2023-08-25 12:46 | Outpatient (REF) | payer OTHER, SELFPAY ==
--- NOTE | ~2023-08-25 | MM_ITS ---
EXAMINATION: MM DIAGNOSTIC DIGITAL BREAST TOMOSYNTHESIS, BILATERAL CLINICAL INFORMATION: Six-month follow-up for calcifications right breast upper slightly inner quadrant. COMPARISON: Mammography: 02/04/2023, 07/06/2022, 06/23/2022 (BI-RADS 0), 04/30/2021, 04/18/2020, and dating back to 2017. TECHNIQUE: Digital breast tomosynthesis is performed in both the craniocaudal and mediolateral oblique views along with computer-aided detection (CAD). Synthesized 2D images are generated from the tomosynthesis. In addition to standard views, 2-D spot magnification right CC and ML views were obtained. FINDINGS: There are scattered areas of fibroglandular density (ACR BI-RADS breast composition Category b). The small focus of calcifications in the slightly inner approximate 3:00 location right breast have not significantly changed in morphology or number and remain probably benign. No aggressive changes. One-year follow-up mammography recommended. Stable mass in the posterior 5:00 axis left breast without change. Bilateral vascular calcifications are stable. No new suspicious calcifications, new developing masses, or areas of architectural distortion in either breast. No suspicious skin or axillary findings. MM/MM tomosynthesis diagnostic BI IMPRESSION: No findings suspicious for malignancy in either breast. Stable probably benign calcifications upper slightly inner right breast. Recommend one-year follow-up with diagnostic magnification views of the right breast. Otherwise stable findings as discussed. ASSESSMENT: BI-RADS BI-RADS 3 - Probably benign finding(s) - 12 month follow-up suggested RECOMMENDATION: 12 month diagnostic follow up Results were provided to the patient at time of visit by the technologist. This patient's information was entered into a reminder system with a target due date for their next mammogram.
== END 2023-08-25 12:47 | disposition home or self-care (01) ==
LOC: HO.MAMMO 12:46
PROVIDERS: PCP Family Medicine; Visit Provider Family Medicine
DX: R92.1 Mammographic calcification found on diagnostic imaging of breast (principal)
CPT/HCPCS: 77062; 77066

== ENCOUNTER → 2023-08-25 13:00 | Outpatient (BNV) | payer OTHER, SELFPAY | PROVIDERS: PCP Family Medicine; Visit Provider Radiology Diagnostic Radiology | DX: R92.1 Mammographic calcification found on diagnostic imaging of breast (principal) | CPT/HCPCS: 77066; G0279 ==

== ENCOUNTER 2023-09-16 10:02 | Outpatient (REF) | payer OTHER, SELFPAY ==
--- NOTE | ~2023-09-16 | MM_ITS ---
EXAMINATION: BONE DENSITOMETRY CLINICAL INDICATION: Screening for osteoporosis. COMPARISON: Previous BD dated 08/12/2017 and baseline BD dated 05/18/2007. TECHNIQUE: Using a [employer] Hyd DXA System (software version: 13.1) manufactured by [employer], dual-energy x-ray absorptiometry was performed of the lumbar spine and left hip. The images are of good technical quality. Summary results are attached. FINDINGS: LEFT FEMUR, NECK: Current: BMD 0.697 g/cm2, Z-score -0.8, T-score -2.5, osteoporosis. Prior: BMD 0.749 g/cm2. Baseline: BMD 0.769 g/cm2. LEFT FEMUR, TOTAL: Current: BMD 0.826 g/cm2, Z-score 0.0, T-score -1.4, osteopenia, 4.6% decrease from previous, 6.5% decrease from baseline (<5% change is not significant). Prior: BMD 0.866 g/cm2. Baseline: BMD 0.883 g/cm2. AP SPINE L1-L4: Current: BMD 0.845 g/cm2, Z-score -1.2, T-score -2.8, osteoporosis, 6.5% decrease from previous, 15.0% decrease from baseline (<5% change is not significant). Prior: BMD 0.904 g/cm2. Baseline: BMD 0.994 g/cm2. IDENTIFIED RISK FACTORS: Menopause, bilateral oophorectomy. HISTORY OF FRACTURE: None listed. MEDICATIONS: Vitamin D. MM/XR DEXA axial skeleton IMPRESSION: 1. DIAGNOSIS: Osteoporosis based on the lowest T-score value of -2.8 in the lumbar spine applying World Health Organization criteria. 2. 10-YEAR FRACTURE RISK PREDICTION, FRAX: According to the guidelines, FRAX calculation should only be performed on patients in the osteopenia bone density category. Therefore, FRAX was not performed on this patient. 3. Treatment Recommendations: NOF guidelines recommend consideration for treatment in postmenopausal women and men age 50 and older presenting with the following: -A hip or vertebral (clinical or morphometric) fracture. -T-score less than or equal to -2.5 at the femoral neck or spine after appropriate evaluation to exclude secondary causes. -Low bone mass at the hip or spine and a 10-year fracture probability by FRAX of greater than or equal to 3% for hip fracture or greater than or equal to 20% for major osteoporotic fracture based on the [place] adapted WHO algorithm. 4. Other Recommendations: All treatment decisions require clinical judgment and consideration of individual patient factors, including patient preferences, comorbidities, previous drug use, risk factors not captured in the FRAX model (e.g. frailty, falls, vitamin D deficiency, increased bone turnover, interval significant decline in bone density) and possible under or overestimation of fracture risk by FRAX. Additional medical evaluation for secondary cause of low bone mineral density may be appropriate. FUTURE SCAN RECOMMENDATION: People with diagnosed cases of osteoporosis or at high risk for fracture should have regular bone mineral density tests. For patients eligible for Medicare, routine testing is allowed once every 2 years. The testing frequency can be increased to one year for patients who have rapidly progressing disease, those who are receiving or discontinuing medical therapy to restore bone mass, or have additional risk factors.
== END 2023-09-16 10:03 | disposition home or self-care (01) ==
LOC: HO.MAMMO 10:02
PROVIDERS: PCP Family Medicine; Visit Provider Nurse Practitioner Family
DX: M81.0 Age-related osteoporosis without current pathological fracture (principal); Z78.0 Asymptomatic menopausal state
CPT/HCPCS: 77080

== ENCOUNTER 2023-10-27 09:18 | Outpatient (REF) | payer OTHER, SELFPAY ==
--- NOTE | ~2023-10-27 | US_ITS ---
EXAMINATION: US RETROPERITONEAL COMPLETE (RENAL) CLINICAL INFORMATION: Kidney stone. COMPARISON: None available. TECHNIQUE: Real-time imaging of the kidneys and bladder. Limited visualization due to bowel gas. FINDINGS: RIGHT KIDNEY: 11.1 x 5.8 x 5.8 cm (SAG x AP x TRV). No hydronephrosis. No renal calculi. Limited visualization. 4.3 cm upper, 0.7 cm upper and 0.8 cm midpole cyst with benign features. There is no specific indication for additional imaging at this time. LEFT KIDNEY: 10.2 x 5.4 x 6.1 cm (SAG x AP x TRV). No hydronephrosis. No renal calculi. Renal cortical thickness is normal. Limited visualization. US/US renal BI IMPRESSION: No hydronephrosis. No renal calculi. Limited visualization. Electronically signed by: Mer Denny MD 11/03/2023 03:47 PM EDT
== END 2023-10-27 09:19 | disposition home or self-care (01) ==
LOC: HO.US 09:18
PROVIDERS: PCP Family Medicine; Visit Provider Nurse Practitioner Family
DX: N20.0 Calculus of kidney (principal)
CPT/HCPCS: 76775

== ENCOUNTER 2023-11-04 10:16 | Outpatient (REF) | payer OTHER, SELFPAY ==
[2023-11-04 14:42] LABS: MANUAL DIFF FLAG NO
[2023-11-04 14:47] LABS: Basophils Absolute Auto 0.1 X10*3/uL (0.0-0.2); Basophils Percent Auto 0.5 % (0-2); Eosinophils Absolute Auto 0.2 X10*3/uL (0.0-0.4); Eosinophils Percent Auto 1.8 % (0-4); Hematocrit 39.7 % (37.0-47.0); Hemoglobin 12.3 g/dl (12.0-16.0); Imm Gran Abs Auto 0.03 X10*3/uL (0.00-0.03); Imm Gran Pct Auto 0.3 % (0.0-0.4); Lymphocytes Absolute Auto 4.6 X10*3/uL (1.2-4.9); Lymphocytes Percent Auto 46.1 % (20-40); Mean Corpuscular Hemoglobin 26.3 pg (27.0-33.0); Mean Corpuscular Volume 84.8 fL (80.0-98.0); Mean Platelet Volume 9.8 fL (9.4-12.3); Monocytes Absolute Auto 0.8 X10*3/uL (0.1-1.2); Monocytes Percent Auto 7.6 % (2-11); Neutrophils Absolute Auto 4.4 x10*3/uL (2.0-8.3); Neutrophils Percent Auto 43.7 % (45-73); Platelet Count 508 X10*3/uL (160-400); Red Blood Count 4.68 X10*6/uL (4.20-5.50); Red Cell Distribution Width 15.4 % (11.0-16.0)
[2023-11-04 14:58] LABS: Appearance Urine Clear; Color Urine Yellow; Glucose Urine UA Negative (Negative); Leukocyte Esterase Urine Trace (Negative); Nitrite Urine Negative (Negative); Specific Gravity - Urine <= 1.005 (1.005-1.025); UMIC TRIGGER UA YES; Urine Blood Negative (Negative); Urine Ketones Negative (Negative); Urine Protein Negative (Neg-Trace)
[2023-11-04 15:02] LABS: Bacteria Urine None Seen (None Seen); Hyaline Casts Urine 0-2 /LPF (0-2); RBC Urine 0-2 /HPF (0-2); Squamous Epithelial Cell Urine 0-2 /HPF (0-2); WBC Urine 0-5 /HPF (0-5)
[2023-11-04 15:12] LABS: Alanine Aminotransferase 20 U/L (0-31); Albumin Level 4.5 g/dL (3.5-5.0); Alkaline Phosphatase 80 U/L (39-117); Anion Gap 15 (12-20); Aspartate Amino Transferase 19 U/L (5-31); Bilirubin Total 0.2 mg/dL (0.0-1.0); Blood Urea Nitrogen 13 mg/dL (9-16); Calcium 10.2 mg/dL (8.4-10.2); Carbon Dioxide 27 mmol/L (22-29); Chloride 104 mmol/L (96-108); Cholesterol 115 mg/dL (<200); Estimated Glomerular Filt Rate > 60; Glucose Fasting 118 mg/dL (60-99); HDL Cholesterol 55 mg/dL (>40); LDL Cholesterol Calculated 43 mg/dL (<100); Potassium 5.1 mmol/L (3.3-5.1); Sodium 141 mmol/L (135-145); Total Protein 8.1 g/dL (6.5-8.0); Triglycerides 88 mg/dL (<150)
[2023-11-04 15:19] LABS: TSH reflex Free T4 0.59 uIU/mL (0.32-4.0)
[2023-11-04 15:41] LABS: Creatinine Urine 21.67 mg/dL; Microalbumin Urine < 5.0 mg/L
== END 2023-11-04 10:17 | disposition home or self-care (01) ==
LOC: HO.WFDLDS 10:16
PROVIDERS: Visit Provider Family Medicine
DX: Z00.00 Encounter for general adult medical examination without abnormal findings (principal); I10 Essential (primary) hypertension
CPT/HCPCS: 36415; 80053; 80061; 81001; 82043; 82570; 84443; 85025

== ENCOUNTER 2023-11-29 09:29 | Outpatient (AMB) | payer OTHER, SELFPAY ==
[2023-11-29 09:29] VITALS: BP 126/84; PULSE 58; O2SAT 100; BMI 25.4
--- NOTE | 2023-11-29 09:29 | A.OFFVIS_ITS ---
Vital Signs 11/29/23 09:29 Height 5 ft 4 in Weight 147 lb 11.355 oz BMI 25.4 BP 126/84 Blood Pressure Location Lt brachial Position Sitting Pulse 58 Pulse Source Pulse Oximeter Pulse Oximetry (%) 100 Oxygen Delivery Method Room Air Intake Visit Reasons: Colonoscopy Screening Intake Note: Josie presents in office today for a scheduled colo consult. CC; This is a recall colo -- Dr. Hernandez (2019). Pt reports that they are still taking their medications as intended. Pt would like to make sure we perform both colo and EGD. Pt is concerned about how the GERD is progressing. Single Resource Boss Required: Yes Single Resource Boss Services: Single Resource Boss Offered & Declined Single Resource Boss Name: Daughter Information Interpreted: non-clinical & clinical Accompanied by: Daughter Allergies No Known Allergies Allergy (Verified 11/29/23 09:30) HPI HPI Colonoscopy Screening: Details: 68 year old? female with past medical history of osteoporosis, anemia, diabetes,, hypothyroidism, hypertension, hyperlipidemia is here today for pre colonoscopy screening.? Patient was sent to us by her PCP.? Patient had upper endoscopy and colonoscopy in September of 2018. Patient had no polyps. Patient reports that she has been taking pantoprazole daily and her symptoms of acid reflux have suppressed. Patient also reports that she no longer suffers from postprandial diarrhea. .? Denies any personal or family history of gastrointestinal disease, colon polyps, or CRC.? Denies history of difficulty with sedation or anesthesia in the past.? Negative for history of sleep apnea.? Denies any history of cardiac, renal, pulmonary, or hepatic disease.?? No history of infectious? diseases like hepatitis A, B, C, HIV or tuberculosis.? Patient is not on any anticoagulation PFSH Surgical History Hx of cholecystectomy History of thyroid surgery H/O: hysterectomy Social History Housing: Apartment Alcohol intake: never Patient Tobacco Use Status: Never used Tobacco e-Cigarette/Vaping Use: Never Used Second Hand Smoke Exposure: No service: No Current occupational status: retired Current occupational exposures/hazards: No Cognitive needs: No Hearing needs: No Vision needs: No Review of Systems Const Denies weight gain and Denies weight loss ENT Reports no additional complaints, Denies dysphagia and Denies odynophagia Card Reports no additional complaints Resp Reports no additional complaints GI Denies abdominal pain, Denies belching, Denies melena, Denies bloating, Denies change in bowel habits, Denies dysphagia, Denies excessive flatus, Denies dyspepsia, Reports heartburn (Occasional), Denies diarrhea, Denies loose stools, Denies nausea, Denies odynophagia and Denies vomiting Reports no additional complaints Musc Reports no additional complaints Neuro Reports no additional complaints Psych Reports no additional complaints Endo Reports no additional complaints Physical Exam Vital Signs: Last Vital Signs Pulse 58 11/29/23 09:29 Pulse Ox 100 11/29/23 09:29 Oxygen Delivery Method Room Air 11/29/23 09:29 BMI result Body Mass Index 25.4 Const General: healthy appearing, no acute distress and well developed Nutritional Appearance: well nourished Orientation/consciousness: patient oriented x3 Resp Effort & Inspection: normal respiratory effort, able to speak in complete sentences, no tracheal deviation and symmetric chest movement Auscultation: clear to auscultation bilaterally Cardio Rate: regular rate GI Inspection: Yes normal to inspection and No distended Palpation (GI): Soft to palpation, not firm, nontender and No hepatosplenomegaly present Auscultation: normal bowel sounds General: Yes no CVA tenderness Back/Spine/Pelvis Back: no CVA tenderness Skin General skin exam: elasticity normal, turgor normal and dry skin Neuro General: patient oriented x3 Psych Appearance: grossly normal Mental Status: mental status grossly normal Assessment & Plan Assessment & Plan (1) Screening for colon cancer: Code(s): Z12.11 - Encounter for screening for malignant neoplasm of colon Category: Medical (2) GERD (gastroesophageal reflux disease): Code(s): K21.9 - Gastro-esophageal reflux disease without esophagitis Category: Medical Qualifiers: Esophagitis presence: esophagitis presence not specified Qualified Code(s): K21.9 - Gastro-esophageal reflux disease without esophagitis Plan Patient denies any cardiac or respiratory symptoms.? Patient reports occasional acid reflux, however she states that it is controlled for the most part with pantoprazole. Patient will be sent for upper endoscopy to evaluate for esophagitis, gastritis, Barretts. Denies any issues with anesthesia in the past.? Denies any history of sleep apnea.? No history infectious diseases in the past or present.? Not on any anticoagulation therapy.? No family or personal history of colon cancer or polyps.? Patient denies melena, hematochezia, unintentional weight loss or ribbon like stools.? Discussed at length the pre- procedure,? prep, diet & medications as well as what to expect prior, during and after the procedure.?? Stressed the importance of good bowel prep.? Recommended the use of Vaseline or Calmoseptine OTC & baby wipes with bowel movements to promote comfort.? ?Patient verbalizes understanding and agrees to plan of care.? She was given the opportunity to ask questions and all questions answered.? We will see her after the procedure.? Medications: New bisacodyl (Dulcolax (bisacodyl)) take 4 tabs at noon the day before your colonoscopy 20 mg (4 x 5 mg) PO ONCE 1 day 4 tabs 0RF Z12.11 - Encounter for screening for malignant neoplasm of colon polyethylene glycol 3350 (Miralax) As directed by gastroenterology department at [facility] 238 grams PO ONCE 238 grams 0RF Z12.11 - Encounter for screening for malignant neoplasm of colon Coding Level of Care Code New Pt Level 3 (93210) Diagnoses Screening for colon cancer Z12.11 Gastroesophageal reflux disease, unspecified whether esophagitis present K21.9 Esophagitis presence: esophagitis presence not specified Time Spent (min) 40 Comment 30 minutes spent with patient and additional 10 minutes spent reviewing her records
== END 2023-11-29 10:34 | disposition home or self-care (01) ==
PROVIDERS: PCP Family Medicine; Visit Provider Nurse Practitioner Family
DX: K21.9 Gastro-esophageal reflux disease without esophagitis (principal); Z12.11 Encounter for screening for malignant neoplasm of colon
CPT/HCPCS: 99203

== ENCOUNTER → 2023-11-29 09:29 | Outpatient (BNVA) | payer OTHER, SELFPAY | PROVIDERS: PCP Family Medicine; Visit Provider Nurse Practitioner Family | DX: Z12.11 Encounter for screening for malignant neoplasm of colon (principal); K21.9 Gastro-esophageal reflux disease without esophagitis | CPT/HCPCS: 99202 ==

== ENCOUNTER 2024-01-07 11:29 | Outpatient (AMB) | payer OTHER, SELFPAY ==
[2024-01-07 12:01] VITALS: BP 124/68; PULSE 71; RESP 16; TEMP 36.4; O2SAT 96; BMI 25.3
--- NOTE | 2024-01-07 12:01 | A.OFFPC_ITS ---
Vital Signs 01/07/24 12:01 Height 5 ft 4 in Weight 147 lb 8 oz BMI 25.3 BP 124/68 Blood Pressure Location Rt brachial Position Sitting Respiration 16 Pulse 71 Pulse Source Pulse Oximeter Temp 97.6 F Temp Source Oral Pulse Oximetry (%) 96 Oxygen Delivery Method Room Air Intake Visit Reasons: Rebooked-11/21 F/U diabetes and Hypertension Allergies No Known Allergies Allergy (Verified 11/29/23 09:30) Medication List - Last Reconciled 01/07/24 by Ricardo Gardner MD acetaminophen 500 mg PO Q6H PRN albuterol sulfate 90 mcg/actuation 2 inhalations inhalation Q4-6H PRN 30 days alendronate 70 mg PO QWEEK 28 days bisacodyl (Dulcolax (bisacodyl)) 20 mg (4 x 5 mg) PO ONCE 1 day blood sugar diagnostic As directed blood sugar diagnostic (FreeStyle Lite Strips) DX: E11.9, test blood sugar once a day, 90 days blood-glucose meter (FreeStyle Lite Meter kit) DX: E11.9, test blood sugar once a day, duration 999 days cholecalciferol (vitamin D3) 50 mcg PO BID dulaglutide 3 mg (0.5 mL) subcut QWEEK 90 days ferrous sulfate 325 mg PO DAILY 30 days glipizide 2.5 mg PO BID lancets (FreeStyle Lancets) Once a Day As directed lancets As directed levothyroxine 100 mcg PO DAILY 90 days lisinopril 10 mg PO DAILY 90 days metformin 850 mg PO TIDWMEAL 30 days oxybutynin chloride ER 10 mg PO DAILY 90 days pantoprazole 40 mg PO QAM 90 days polyethylene glycol 3350 (Miralax) 238 grams PO ONCE pyridoxine (vitamin B6) 100 mg PO DAILY 90 days simethicone (Gas Relief (simethicone)) 80 mg PO BID-QID PRN 30 days simvastatin 20 mg PO BEDTIME 90 days timolol maleate 0.5% drps ophthalmic (eye) Tobacco use date assessed: 08/20/23 Dental Screening Dental Screen Date: 05/14/23 HPI Rebooked-11/21 F/U diabetes and Hypertension HPI Details 68 y/o female presents to f/u Farhan bower. A1c today 01/07/24 7.0%. She is on metformin 850mg t.i.d, glipizide 2.5mg, dulaglutide 3mg weekly. Blood pressure today 124/68, 71p. She is on lisinopril 10mg daily. Up to date with her diabetic eye exam. She has a colonoscopy scheduled in April. Pt's daughter notes she has been more frustrated/impulsive lately. PFSH Surgical History Hx of cholecystectomy History of thyroid surgery H/O: hysterectomy Social History Housing: Apartment Alcohol intake: never Patient Tobacco Use Status: Never used Tobacco e-Cigarette/Vaping Use: Never Used Second Hand Smoke Exposure: No service: No Current occupational status: retired Current occupational exposures/hazards: No Cognitive needs: No Hearing needs: No Vision needs: No Questionnaire PHQ-9 Over the last 2 weeks, how often have you been bothered by any of the following problems? 1. Little interest or pleasure in doing things: not at all 2. Feeling down, depressed, or hopeless: not at all 3. Trouble falling or staying asleep, or sleeping too much: not at all 4. Feeling tired or having little energy: not at all 5. Poor appetite or overeating: not at all 6. Feeling bad about yourself - or that you are a failure or have let yourself or your family down: not at all 7. Trouble concentrating on things, such as reading the newspaper or watching television: not at all 8. Moving or speaking so slowly that other people could have noticed. Or the opposite - being so fidgety or restless that you have been moving around a lot more than usual: not at all 9. Thoughts that you would be better off or of hurting yourself in some way: not at all Total score: 0 Source: Developed by Drs. Jamil Peña, Keyonna Malone, Tarik Mercado and colleagues, with an educational celso from [employer]. Thrive Questionnaire Date Thrive assessed: 11/13/22 I am a: Patient What is your living situation today?: I have a steady place to live Within the past 12 months, did the food you bought not last and you didn't have the money to get more?: Never true Within the past 12 months, did you worry whether your food would run out before you got money to buy more?: Never true Do you have trouble paying for medicines?: No Do you have trouble getting transportation to medical appointments?: No Do you have trouble paying your heating and electricity bill?: No Do you have trouble taking care of your child, family member or friend?: No Do you have trouble with day-to-day activities such as bathing, preparing meals, shopping, managing finances, etc.?: No Are you currently unemployed and looking for a job?: No Are you interested in more education?: No Please select the resources that you would like help with: None Currently or been in a relationship where the following occur: No concerns reported THRIVE Score: 0 AUDIT C Alcohol Use Questionnaire (AUDIT-C) 1. How often do you have a drink containing alcohol?: Never Total Score: 0 CIRO-7 AMB Questionnaire CIRO-7 Date CIRO - 7 assessed: 11/13/22 Feeling nervous, anxious, or on edge: 0 = Not at all Not being able to stop or control worryin = Several days Worrying too much about different things: 1 = Several days Trouble relaxin = Not at all Being so restless that it is hard to sit still: 1 = Several days Becoming easily annoyed or irritable: 2 = More than half the days Feeling afraid as if something awful might happen: 0 = Not at all Total CIRO-7 score (0-4 normal; 5-9 mild; 10-14 moderate; 15-21 severe): 5 Source: Developed by Drs. Jamil Peña, Keyonna Malone, Tarik Mercado and colleagues, with an educational celso from [employer]. Physical exam (Primary Care) Vital Signs: Last Vital Signs Temp 97.6 F 01/07/24 12:01 Pulse 71 01/07/24 12:01 Resp 16 01/07/24 12:01 BP 124/68 01/07/24 12:01 Pulse Ox 96 01/07/24 12:01 Oxygen Delivery Method Room Air 01/07/24 12:01 BMI result Body Mass Index 25.3 Tobacco/Smoking Status: Tobacco use Status Tobacco use date assessed 08/20/23 01/07/24 12:02 Patient Tobacco Use Status Never used Tobacco 01/07/24 12:02 e-Cigarette/Vaping Use Never Used 01/07/24 12:02 PHQ-9: PHQ-9 Score PHQ-9: Total score 0 01/07/24 12:02 Thrive Assessment: Date of Thrive Assessment Date Thrive assessed 11/13/22 01/07/24 12:02 Currently or been in a relationship where the following occur: No concerns reported Coding Level of Care Code Est Pt Level 4 (14931) Diagnoses Diabetes type 2, controlled E11.9 Essential hypertension I10 Screening for colon cancer Z12.11 Impulsiveness R45.87 Parotiditis K11.20 Assessment & Plan Assessment & Plan (1) Diabetes type 2, controlled: Code(s): E11.9 - Type 2 diabetes mellitus without complications Category: Medical Plan: A1c?improved?from?7.3%?to?7.0%. Goal?is?less?than?7% No?changes?to?her?current?medication?regimen?and?I?encouraged?a?diet?lower?in?jones gars?and?starches?and?encouraged?exercise Eye?exam?[id number]-[id number]-date (2) Essential hypertension: Code(s): I10 - Essential (primary) hypertension Category: Medical Plan: Blood?pressure?is?well?controlled.??Goal?is?less?than?140/90 Continue?current?medication (3) Screening for colon cancer: Code(s): Z12.11 - Encounter for screening for malignant neoplasm of colon Category: Medical Plan: She?has?an?appointment?with?Gastroenterology?in?April?for?her?colonoscopy?and ?endoscopy (4) Impulsiveness: Code(s): R45.87 - Impulsiveness Category: Medical Plan: Daughter?is?noticing?repetitive?and?impulsive?behaviors. Will?refer?her?to?psych?consult?team?for?evaluation Will?try?bupropion (5) Parotiditis: Code(s): K11.20 - Sialoadenitis, unspecified Category: Medical Plan: Recent?right?parotiditis?which?has?resolved?with?antibiotics. Advised?prevention?with?increased?hydration, lemon?drops and?can?also?use?heat/compresses
== END 2024-01-07 12:29 | disposition home or self-care (01) ==
PROVIDERS: PCP Family Medicine; Visit Provider Family Medicine
DX: E11.9 Type 2 diabetes mellitus without complications (principal); I10 Essential (primary) hypertension; Z12.11 Encounter for screening for malignant neoplasm of colon; R45.87 Impulsiveness; K11.20 Sialoadenitis, unspecified

== ENCOUNTER → 2024-01-07 11:29 | Outpatient (BNVA) | payer OTHER, SELFPAY | PROVIDERS: PCP Family Medicine; Visit Provider Family Medicine | DX: E11.9 Type 2 diabetes mellitus without complications (principal); I10 Essential (primary) hypertension; K11.20 Sialoadenitis, unspecified; R45.87 Impulsiveness | CPT/HCPCS: 96127; 99212 ==

== ENCOUNTER 2024-04-05 07:07 | Day surgery (SDC) | payer OTHER, SELFPAY ==
[2024-04-03 14:25] VITALS: BMI 25.4
--- NOTE | 2024-04-04 08:51 | P.CONAN_ITS ---
Documented by User: Frances García NP 04/04/24 08:51 HPI - Anesthesia Eval Consult details Narrative: 68yo F for Upper Endoscopy and Colonoscopy Anesthesia Pre-Procedure Meds Is the patient on any of the following meds?: GLP1/DPP4 PMFSH Active Problems Active Problems: All Active Problems Parotiditis (Acute) Impulsiveness (Acute) Post-menopause (Acute) Diarrhea (Acute) Osteoporosis (Acute) Neoplasm of uncertain behavior of skin (Acute) Abdominal bloating (Acute) Dysuria (Acute) Asthma (Acute) Left renal stone (Acute) Renal cyst (Acute) Mild anemia (Acute) Stress incontinence (Acute) Screening for osteoporosis (Acute) Immunization counseling (Acute) Microcytic anemia (Acute) Breast cancer screening by mammogram (Acute) Screening for colon cancer (Acute) Adult general medical examination (Acute) Tachycardia (Acute) Diabetes type 2, uncontrolled (Acute) Laboratory examination ordered as part of a routine general medical examination (Acute) Vitamin D deficiency (Acute) GERD (gastroesophageal reflux disease) (Acute) Hypothyroid (Acute) Hyperlipidemia (Acute) Essential hypertension (Acute) Diabetes type 2, controlled (Acute) Past Medical History Medical History Microcytic anemia Renal calculi Asthma GERD (gastroesophageal reflux disease) Osteoporosis Diabetes Thyroid disease Elevated cholesterol HTN (hypertension) Surgical History Surgical History Hx of cholecystectomy History of thyroid surgery H/O: hysterectomy Social History Social History Housing: Apartment Alcohol intake: never Patient Tobacco Use Status: Never used Tobacco e-Cigarette/Vaping Use: Never Used Second Hand Smoke Exposure: No Use of substances other than those prescribed or required for medical reasons: No Have you been hit, kicked, punched, or otherwise hurt by someone within the past year? If so, by whom?: No Are you DNR?: No Advance Directives: No Advance Directives Information Provided: Yes Recently lost weight without trying: No service: No Current occupational status: retired Current occupational exposures/hazards: No Cognitive needs: No Hearing needs: No Vision needs: No Meds Allergies Allergy/AdvReac Type Severity Reaction Status Date / Time No Known Allergies Allergy Verified 11/29/23 09:30 Home Medications ?Medication ?Instructions ?Recorded ?Confirmed ?Last Taken ?Type blood sugar diagnostic #10 ea 05/30/20 01/07/24 Unknown History acetaminophen 500 mg tablet 500 mg PO Q6H PRN Pain 06/19/22 04/03/24 Unknown History timolol maleate 0.5 % eye drops 1 drp ophthalmic (eye) DAILY 11/29/23 04/03/24 Unknown History alendronate 70 mg tablet 70 mg PO EASTON 04/05/24 04/05/24 Unknown History levothyroxine 100 mcg tablet 100 mcg PO DAILY@59904/05/24 04/05/24 Unknown History pantoprazole 40 mg tablet,delayed 40 mg PO DAILY@62904/05/24 04/05/24 Unknown History release Exam Height,Weight and Vital Signs: Height 5 ft 4 in Weight 67.132 kg Assessment and Plan Assessment Anesthesia Assessment: Chart Reviewed Documented by User: Yaz Fernandez MD 04/05/24 09:31 HPI - Anesthesia Eval Anesthesia Pre-Procedure Meds Is the patient on any of the following meds?: GLP1/DPP4 (Last dose of dulaglutide 03/28/24) PMFSH Past Medical History Medical History Microcytic anemia Renal calculi Asthma GERD (gastroesophageal reflux disease) Osteoporosis Diabetes Thyroid disease Elevated cholesterol HTN (hypertension) Family History Family history of problems with anesthesia: No Surgical History Surgical History Hx of cholecystectomy History of thyroid surgery H/O: hysterectomy History of Problems with Anesthesia: No Social History Social History Housing: Apartment Alcohol intake: never Patient Tobacco Use Status: Never used Tobacco e-Cigarette/Vaping Use: Never Used Second Hand Smoke Exposure: No Use of substances other than those prescribed or required for medical reasons: No Have you been hit, kicked, punched, or otherwise hurt by someone within the past year? If so, by whom?: No Are you DNR?: No Advance Directives: No Advance Directives Information Provided: Yes Recently lost weight without trying: No service: No Current occupational status: retired Current occupational exposures/hazards: No Cognitive needs: No Hearing needs: No Vision needs: No Meds Allergies Allergy/AdvReac Type Severity Reaction Status Date / Time No Known Allergies Allergy Verified 11/29/23 09:30 Home Medications ?Medication ?Instructions ?Recorded ?Confirmed ?Last Taken ?Type blood sugar diagnostic #10 ea 05/30/20 01/07/24 Unknown History acetaminophen 500 mg tablet 500 mg PO Q6H PRN Pain 06/19/22 04/03/24 Unknown History timolol maleate 0.5 % eye drops 1 drp ophthalmic (eye) DAILY 11/29/23 04/03/24 Unknown History alendronate 70 mg tablet 70 mg PO EASTON 04/05/24 04/05/24 Unknown History levothyroxine 100 mcg tablet 100 mcg PO DAILY@0600 04/05/24 04/05/24 Unknown History pantoprazole 40 mg tablet,delayed 40 mg PO DAILY@0630 04/05/24 04/05/24 Unknown History release Exam Height,Weight and Vital Signs: Height 5 ft 4 in Weight 67.132 kg Vital Signs Temp Pulse Resp BP Pulse Ox O2 Del Method 98.1 F 60 16 150/66 H 99 Room Air 04/05/24 07:16 04/05/24 07:16 04/05/24 07:16 04/05/24 07:16 04/05/24 07:16 04/05/24 07:16 Pertinent Lab Results Pertinent Lab Results: Lab Results 04/05/24 Range/Units 07:34 POC Glucose 196 H (60-115) mg/dL Airway Mallampati Class: II TM Dist: >3cm Neck ROM: Full Loose/Missing/Broken Teeth: Yes (Missing 1 tooth bottom back left. Denies broken or loose teeth) Heart: RRR Lungs: CTAB Assessment and Plan Assessment Anesthesia Assessment: Anesthesia Plan Discussed and Chart Reviewed Final Anesthetic Review Family History of Problems with Anesthesia: No History of Problems with Anesthesia: No NPO: Yes ASA Class: III Final Preanesthetic Review: No Changes in Pt Med Stat, Meds/Allgs Chart Reviewe d, Consent Obtained/Reviewed and Anes Risks/Benef Reviewed Patient Risk: Intermediate Procedure Risk: Low Assessment/Block/Sedation in SS: Assess/Block/Sedation-SS Anesthetic Plan Anesthetic Plan: TIVA Disposition: Standard PACU
--- NOTE | 2024-04-05 07:04 | MHC.SHP ---
Pre-Procedural Eval Section A - 24 Hr Update-Section A only Date of Service: 04/05/24 Section B - Complete if H&P > 30 days Chief Complaint: Gastro-esophageal reflux disease without esophagit Details of Present Illness: colon screening Relevant Family History (Specify if Yes): No Relevant Social History: None Present Medications: see Short Stay Collaborative assessment Medical History: Significant History (Microcytic anemia Renal calculi Asthma GERD (gastroesophageal reflux disease) Osteoporosis Diabetes Thyroid disease Elevated cholesterol HTN (hypertension)) History of Previous Operations: Relevant previous surgery/procedure and date(s) (Hx of cholecystectomy History of thyroid surgery H/O: hysterectomy) Allergies: Allergies Allergy/AdvReac Type Severity Reaction Status Date / Time No Known Allergies Allergy Verified 11/29/23 09:30 Review of Systems Sugical H&P ROS: Negative: Constitution, Cardiovascular, Respiratory, Neurological, Psychiatric, Hem-Onc, Allergic/Immunologic, Gastrointestinal, Genitourinary, Musculoskeletal, Integumentary, Endocrine and Eyes/Ears/Nose/Throat Exam Surgical H&P Exam: Normal: HEENT, Normal: Heart, Normal: Lungs, Normal: Extremities, Normal: Abdomen, Normal: Skin and Normal: Neurological Plan Diagnosis/Plan: Unchanged I have reviewed the history and physical and performed a pertinent physical examination on my patient. No changes have occurred unless specified. Time Spent With Patient Time: Total time managing care of this patient today ____ minutes.
--- OUTSIDE RECORDS SUMMARY | 2024-04-05 07:10 | XMS_ITS | Encounter Summary ---
Author Organization [employer] Address [address] [facility] [address] [place] [address] Care Team Providers Care Ent Consultant Name Role Phone Unavailable Primary Care Provider Unavailabl e Reason for Visit * Reason Comments Med Refill Encounter Details Date Type Department Care Team (Late st Contact Info) Description 09/18/[address] [facility] [address] [place] [address] Shanon Chauhan MD [address] [place] [address] Social History Tobacco Use Types Packs/Day Years Used Date Smoking Tobacco: Never Assessed Comments Unknown Sex and Gender Information Value Date Recorded Sex Assigned at Female 12/29/2021 10:17 AM EDT Legal Sex Female 10:17 AM EDT Gender Identity Female 12/29/2021 10:17 AM EDT Sexual Orientation Straight 12/29/2021 10 :17 AM EDT documented as of this encounter Plan of Treatment Not on file documented as of this encounter Visit Diagnoses Not on filedocumented in this encounter
--- OUTSIDE RECORDS SUMMARY | 2024-04-05 07:10 | XMS_ITS | Encounter Summary ---
Author Organization [employer] Address [address] [facility] [address] [place] [address] Care Team Providers Care Alteration Worker Name Role Phone Unavailable Primary Care Provider Unavailabl e Reason for Visit * Reason Comments Med Refill Encounter Details Date Type Department Care Team ([facility] st Contact Info) Description 08/24/2022 Refill [facility] & PEDS [address] [place], [place] [phone] Odalys Mast MD [address] [place] [address] Social History Tobacco Use Types Packs/Day Years [...]
--- OUTSIDE RECORDS SUMMARY | 2024-04-05 07:10 | XMS_ITS | Encounter Summary ---
Author Organization [employer] Address [address] [facility] [address] [place] [address] Care Team Providers Care Advanced Practice Professional Name Role Phone Unavailable Primary Care Provider Unavailabl e Reason for Visit * Reason Comments Med Refill Encounter Details Date Type Department Care Team ([facility] st Contact Info) Description 11/16/2022 Refill [facility] MED & PEDS [address] [place], [place] [phone] Odalys Mast MD [address] [place] [address] Social History Tobacco Use Types Packs/Day Years [...]
--- OUTSIDE RECORDS SUMMARY | 2024-04-05 07:10 | XMS_ITS | Clinical Summary ---
Author Organization [employer] Address [address] [facility] [address] [place] [address] Care Team Providers Care Burglar Alarm Operator Name Role Phone Unavailable Primary Care Provider Unavailabl e Social History Tobacco Use Types Packs/Day Years Used Date Smoking Tobacco: Never Assessed Comments Unknown Sex and Gender Information Value Date Recorded Sex Assigned at Female 12/29/2021 10:17 AM EDT Legal Sex Female 10:17 AM EDT Gender Identity Female 12/29/2021 10:17 AM EDT Sexual Orientation Straight 12/29/2021 10 :17 AM EDT Last Filed Vital Signs Vital Sign Reading Time Taken Comments Blood Pressure 160/90 05/24/2020 12:03 AM EDT Pulse 72 05/24/2020 12:03 AM EDT Temperature - - Respiratory Rate - - Oxygen Saturation - - Inhaled Oxygen Concentration - - Weight 70.3 kg (155 lb) 05/24/2020 12:03 AM EDT Height 157.5 cm (5' 2 ) 05/24/2020 12:03 AM EDT Body Mass Index 28.35 05/24/2020 12:03 AM EDT Plan of Treatment Health Maintenance Due Date Last Done Comments CT Colonography 1953 Colonoscopy 1953 Colorectal Cancer Screening 1953 Depression Screening 1953 FIT DNA/Cologuard 1953 FIT 1953 FOBT 1953 Sigmoidoscopy 1953 Alcohol/Substance Use Screening 1965 Tobacco Screening 1965 Pneumococcal Vaccine: 50+ Years (2 of 2 - PCV) 10/22/2005 10/22/2004 Zoster Vaccines (2 of 3) 03/08/2014 01/11/2014 Mammogram 04/18/2022 04/18/2020, 04/01, 09/02/2018, Additional history exists COVID-19 Vaccine (3 - 2024-25 season) 2023 06/06/2020, 05/10/2020 Influenza Vaccine (#1) 2023 , 01/11/2019, 11/30/2017, Additional history exists DTaP/Tdap/Td Vaccines (2 - Td or Tdap) 02/04/2025 02/04/2015 RSV Patients and Patients Aged 60 years or older (1 - 1-dose 75+ series) 2028 Hepatitis B Vaccines Completed 06/04/2017, 08/12/2015, 03/11/2015, Additional history exists HIB Vaccines Aged Out No longer eligi ble based on patient's age to complete this topic HPV Vaccines Aged Out No longer eligi ble based on patient's age to complete this topic Hepatitis A Vaccines Aged Out No long er eligible based on patient's age to complete this topic IPV Vaccines Aged Out No longer eligi ble based on patient's age to complete this topic Meningococcal Vaccine Aged Out No sharmila sherry eligible based on patient's age to complete this topic RSV under 20 months Aged Out No longe r eligible based on patient's age to complete this topic Rotavirus Vaccines Aged Out No longer eligible based on patient's age to complete this topic Procedures Procedure Name Priority Date/Time Associated Diagnosis Comments MAMMOGRAM GENERIC Routine 04/18/2020 8:2 9 AM EST from Last 3 Months or Most Recently Relevant to Health Maintenance Results * Mammography Report 1 (04/18/2020 8:29 AM EST) Anatomical Region Laterality Modality Breast Bilateral Mammography 04/18/2020 8:29 AM EST Narrative 04/19/2020 8:18 AM EST Refer to the Notes tab for result details [facility] Procedure: Mammography Report 1 Procedure Note Provider, Amanda, - 05/23/2022 Refer to the Notes tab for result details [facility] Procedure: Mammography Report 1 us Odalys Mast MD IMG BI PROCEDURES Final Resul t from Last 3 Months or Most Recently Relevant to Health Maintenance
[2024-04-05 07:16] VITALS: BP 150/66; PULSE 60; RESP 16; TEMP 36.7; O2SAT 99
--- NOTE | 2024-04-05 07:21 | PHA.MEDREC ---
Pharmacy Consult ? Medication Reconciliation Pharmacy has REVIEWED the medication reconciliation.
[2024-04-05] MEDS: Lactated Ringers 1,000 ML 100 ML IVCONT (07:32)
[2024-04-05 07:37] LABS: Glucose, Whole Blood 196 mg/dL (60-115)
--- NOTE | 2024-04-05 09:18 | P.OPN-COLO_ITS ---
Colonoscopy Operative Note Operative Note Date of Service: 04/05/24 Narrative: Operative Information Procedure Description: EGD, Colonoscopy Indication: GERD and screening Anesthesia: MAC FLEXIBLE TRANSORAL UPPER GASTROINTESTINAL ENDOSCOPY AND COLONOSCOPY PROCEDURE NOTE UPPER ENDOSCOPY Consent: Indications for the procedure and potential complications of bleeding, perforation, reaction to medications and missed diagnosis were discussed with the patient and informed consent was obtained. Instrument: Olympus GIF H 190 J mid size upper endoscope Monitoring: Vital signs and clinical assessment, continuous EKG monitoring, Pulse oximetry, Carbon Dioxide monitoring and blood pressure monitoring were done throughout the procedure. Procedure: The patient was placed in the left lateral decubitis position and pre-procedure medications were administered and a bite block was placed. The endoscope was inserted into the mouth and advanced under direct vision to the third part of duodenum. A careful inspection was made as the upper endoscope was withdrawn including a retroflexed examination of the proximal stomach; Findings and interventions are described below. Findings: Larynx:normal Esophagus: GE junction at 36 cm, diaphragm hiatus at 38 cm, lax LES with small sliding 1-2 cm hiatal hernia Stomach: Small superficial ulcer near the pylorus. Biopsies were obtained. Grade 2 flap valve on retroflexed examination of the cardia. Duodenum: Normal bulb and descending duodenum, Intervention: Biopsies as noted above, COLONOSCOPY Instrument: Olympus variable stiffness pediatric scope 190L Colonoscopy Monitoring: Vital signs and clinical assessment, continuous EKG monitoring, Pulse oximetry, Carbon Dioxide monitoring and blood pressure monitoring were done throughout the procedure. Colon withdrawal time was 15 minutes. Procedure: The patient was placed in the left lateral decubitis position and pre-procedure medications were administered. After a digital rectal examination of the ano-rectum, the video colonoscope was inserted into the rectum and advanced through the colon to the cecum/TI. The colonoscope was slowly withdrawn in a retrograde panoramic fashion and the colon mucosa was carefully examined including a retroflexed view of the rectum. Findings and interventions are described below. Procedure Difficulty: difficult due to looping and stiff colon with severe diverticulosis Findings: Terminal Ileum-not intubated Cecum:normal Ascending Colon: normal Transverse Colon -normal Descending Colon:normal Sigmoid Colon: severe diverticulosis with luminal narrowing and tightness Rectum: Retroflexion with small internal hemorrhoids, grade I Anorectum - normal Colon preparation: [place] Bowel Preparation Scale Right colon; 2 Transverse colon: 2 Left colon; 1-2 (0 = Unprepared colon segment with mucosa not seen due to solid stool that cannot be cleared. 1 = Portion of mucosa of the colon segment seen, but other areas of the colon segment not well seen due to staining, residual stool and/or opaque liquid. 2 = Minor amount of residual staining, small fragments of stool and/or opaque liquid, but mucosa of colon segment seen well. 3 = Entire mucosa of colon segment seen well with no residual staining, small fragments of stool or opaque liquid) Impression and Post Procedure Diagnosis: Endoscopy Findings: gastric ulcer gastritis lax LES Colonoscopy Findings: diverticulosis internal hemorrhoids Plan: Await Pathology results Repeat Colonoscopy in 1-2 years due to fair prep on the left or earlier if clinically indicated High fiber diet leaflet avoid straining at stool, epsom salts and sitz bath, anusol supps or cream if H pylori pos then treat check PPI compliance and nsaid hx Above findings were reviewed with the patient and relevant handouts were provided if indicated.
[2024-04-05 09:29] VITALS: BP 154/79; PULSE 60; RESP 26; TEMP 36.1; O2SAT 99
[2024-04-05 09:44] VITALS: BP 158/55; PULSE 62; RESP 16; TEMP 36.2; O2SAT 97
== END 2024-04-05 10:48 | disposition home or self-care (01) ==
PROVIDERS: PCP Family Medicine; Visit Provider Internal Medicine Gastroenterology
PROC: (CPT 43239; principal; 2024-04-05 08:30)
DX: Z12.11 Encounter for screening for malignant neoplasm of colon (principal); K57.30 Diverticulosis of large intestine without perforation or abscess without bleeding; K64.0 First degree hemorrhoids; K21.9 Gastro-esophageal reflux disease without esophagitis; K29.50 Unspecified chronic gastritis without bleeding; K25.9 Gastric ulcer, unspecified as acute or chronic, without hemorrhage or perforation; K44.9 Diaphragmatic hernia without obstruction or gangrene; I10 Essential (primary) hypertension; D64.9 Anemia, unspecified; E11.9 Type 2 diabetes mellitus without complications; E03.9 Hypothyroidism, unspecified; M81.0 Age-related osteoporosis without current pathological fracture; E78.5 Hyperlipidemia, unspecified; Z79.84 Long term (current) use of oral hypoglycemic drugs; Z79.85 Long-term (current) use of injectable non-insulin antidiabetic drugs; Z79.899 Other long term (current) drug therapy; Z90.49 Acquired absence of other specified parts of digestive tract; Z98.890 Other specified postprocedural states
CPT/HCPCS: 43239; G0121; 82947; 88305; 88342; J2003; J2704; J2765

== ENCOUNTER 2024-04-10 09:41 | Outpatient (AMB) | payer OTHER, SELFPAY ==
--- NOTE | 2024-04-10 10:02 | MHC.PC.OV ---
Vital Signs 04/10/24 10:04 Height 5 ft 4 in Weight 150 lb 6 oz BMI 25.8 BP 150/66 H Blood Pressure Location Lt brachial Position Sitting Respiration 16 Pulse 55 Pulse Source Pulse Oximeter Temp 98.0 F Temp Source Oral Pulse Oximetry (%) 99 Oxygen Delivery Method Room Air Intake Visit Reasons: f/u diabetes, HTN Intake Note: f/u d/m Allergies No Known Allergies Allergy (Verified 04/10/24 10:02) Medication List - Last Reconciled 04/10/24 by Ricardo Gardner MD acetaminophen 500 mg PO Q6H PRN albuterol sulfate 90 mcg/actuation 2 inhalations inhalation Q4-6H PRN 30 days alendronate 70 mg PO EASTON blood sugar diagnostic As directed blood sugar diagnostic (FreeStyle Lite Strips) DX: E11.9, test blood sugar once a day, 90 days blood-glucose meter (FreeStyle Lite Meter kit) DX: E11.9, test blood sugar once a day, duration 999 days bupropion HCl 75 mg PO BID 30 days cholecalciferol (vitamin D3) 50 mcg PO BID dulaglutide 3 mg (0.5 mL) subcut QWEEK 90 days ferrous sulfate 325 mg PO DAILY 30 days glipizide 2.5 mg (1/2 x 5 mg) PO BID 90 days lancets (FreeStyle Lancets) Once a Day As directed lancets As directed levothyroxine 100 mcg PO DAILY@0600 lisinopril 10 mg PO DAILY 90 days metformin 850 mg PO TID oxybutynin chloride ER 10 mg PO DAILY 90 days pantoprazole 40 mg PO DAILY@0630 pyridoxine (vitamin B6) 100 mg PO DAILY 90 days simethicone (Gas Relief (simethicone)) 80 mg PO BID-QID PRN 30 days simvastatin 20 mg PO BEDTIME 90 days timolol maleate 0.5% 1 drp ophthalmic (eye) DAILY Tobacco use date assessed: 08/20/23 Dental Screening Dental Screen Date: 05/14/23 HPI f/u diabetes, HTN HPI Details 68 y/o female presents to f/u diabetes, HTN. A1c today 6.8%. She is on Trulicity, glipizide and metformin. Blood pressure today 150/66, 55p. She is on lisinopril 10mg daily. Has complaints of a ganglion cyst. They report hearing changes. [facility] Medical History Microcytic anemia Renal calculi Asthma GERD (gastroesophageal reflux disease) Osteoporosis Diabetes Thyroid disease Elevated cholesterol HTN (hypertension) Surgical History Hx of cholecystectomy History of thyroid surgery H/O: hysterectomy Social History Housing: Apartment Alcohol intake: never Patient Tobacco Use Status: Never used Tobacco e-Cigarette/Vaping Use: Never Used Second Hand Smoke Exposure: No service: No Current occupational status: retired Current occupational exposures/hazards: No Cognitive needs: No Hearing needs: No Vision needs: No Questionnaire PHQ-9 Over the last 2 weeks, how often have you been bothered by any of the following problems? 1. Little interest or pleasure in doing things: not at all 2. Feeling down, depressed, or hopeless: not at all 3. Trouble falling or staying asleep, or sleeping too much: not at all 4. Feeling tired or having little energy: several days 5. Poor appetite or overeating: several days 6. Feeling bad about yourself - or that you are a failure or have let yourself or your family down: not at all 7. Trouble concentrating on things, such as reading the newspaper or watching television: not at all 8. Moving or speaking so slowly that other people could have noticed. Or the opposite - being so fidgety or restless that you have been moving around a lot more than usual: not at all 9. Thoughts that you would be better off or of hurting yourself in some way: not at all Total score: 2 Source: Developed by Drs. Jamil Peña, Keyonna Malone, Tarik Mercado and colleagues, with an educational celso from [employer]. Thrive Questionnaire Date Thrive assessed: 11/13/22 I am a: Patient What is your living situation today?: I have a steady place to live Within the past 12 months, did the food you bought not last and you didn't have the money to get more?: Never true Within the past 12 months, did you worry whether your food would run out before you got money to buy more?: Never true Do you have trouble paying for medicines?: No Do you have trouble getting transportation to medical appointments?: No Do you have trouble paying your heating and electricity bill?: No Do you have trouble taking care of your child, family member or friend?: No Do you have trouble with day-to-day activities such as bathing, preparing meals, shopping, managing finances, etc.?: No Are you currently unemployed and looking for a job?: No Are you interested in more education?: No Please select the resources that you would like help with: None Currently or been in a relationship where the following occur: No concerns reported THRIVE Score: 0 AUDIT C Alcohol Use Questionnaire (AUDIT-C) 1. How often do you have a drink containing alcohol?: Never Total Score: 0 CIRO-7 AMB Questionnaire CIRO-7 Date CIRO - 7 assessed: 11/13/22 Feeling nervous, anxious, or on edge: 2 = More than half the days Not being able to stop or control worryin = Several days Worrying too much about different things: 1 = Several days Trouble relaxin = Not at all Being so restless that it is hard to sit still: 0 = Not at all Becoming easily annoyed or irritable: 2 = More than half the days Feeling afraid as if something awful might happen: 0 = Not at all Total CIRO-7 score (0-4 normal; 5-9 mild; 10-14 moderate; 15-21 severe): 6 Source: Developed by Drs. Jamil Peña, Keyonna Malone, Tarik Mercado and colleagues, with an educational celso from [employer]. Physical exam (Primary Care) Vital Signs: Last Vital Signs Temp 98.0 F 04/10/24 10:04 Pulse 55 04/10/24 10:04 Resp 16 04/10/24 10:04 BP 150/66 H 04/10/24 10:04 Pulse Ox 99 04/10/24 10:04 Oxygen Delivery Method Room Air 04/10/24 10:04 BMI result Body Mass Index 25.8 Tobacco/Smoking Status: Tobacco use Status Tobacco use date assessed 08/20/23 04/10/24 10:06 Patient Tobacco Use Status Never used Tobacco 04/10/24 10:06 e-Cigarette/Vaping Use Never Used 04/10/24 10:06 PHQ-9: PHQ-9 Score PHQ-9: Total score 2 04/10/24 10:09 Thrive Assessment: Date of Thrive Assessment Date Thrive assessed 11/13/22 04/10/24 10:06 Currently or been in a relationship where the following occur: No concerns reported Results AMB Hemoglobin A1c AMB Hemoglobin A1c 6.8 % Last Edit by Yusef Palacios CMA on 04/10/24 10:28 Results Reviewed Results Reviewed: Laboratory Last Values Hgb A1c (Clinic) 6.8 % (4.0-6.0) H 04/10/24 10:27 Coding Level of Care Code Est Pt Level 4 (31538) Diagnoses Essential hypertension I10 Diabetes type 2, controlled E11.9 Ganglion cyst M67.40 Screening for colon cancer Z12.11 Change in hearing H91.90 Left ankle pain M25.572 Assessment & Plan Assessment & Plan (1) Essential hypertension: Code(s): I10 - Essential (primary) hypertension Category: Medical Plan: Blood?pressure?is?too?high.??Goal?is?less?than?140/90 Increase?lisinopril Check?blood?pressures?at?home Watch?salt/sodium (2) Diabetes type 2, controlled: Code(s): E11.9 - Type 2 diabetes mellitus without complications Category: Medical Plan: Blood?sugar?appears?controlled.??Goal?is?less?than?7.0%.??A1c?was?6.8% Continue?current?medication?regimen Continue?diabetic?diet (3) Ganglion cyst: Code(s): M67.40 - Ganglion, unspecified site Category: Medical Plan: Can?use?ice/heat No?further?intervention?necessary?at?this?time (4) Screening for colon cancer: Code(s): Z12.11 - Encounter for screening for malignant neoplasm of colon Category: Medical Plan: Patient?had?colonoscopy?and?endoscopy?with?Gastroenterology Follow-up?with?Gastroenterology?as?recommended (5) Change in hearing: Code(s): H91.90 - Unspecified hearing loss, unspecified ear Category: Medical Plan: Patient?is?noticing?worsened?hearing/hearing?changes Referred?to?audiology (6) Left ankle pain: Code(s): M25.572 - Pain in left ankle and joints of left foot Category: Medical Plan: Left?ankle?pain?and?some?swelling?after?being?on?her?feet?for?6?hours. Likely?overuse?and?some?arthritis Likely?some?dependent?edema?as?well Try?not?to?over?use?joint Elevate?when?can Ice NSAIDs?as?tolerated.??Will?give?her?a?script?for?celecoxib?and she?will?use?only?briefly?during?flare-ups Orders: Orders AMB Hemoglobin A1c Today E11.65 - Type 2 diabetes mellitus with hyperglycemia Referrals Audiology Referral H91.90 - Unspecified hearing loss, unspecified ear Medications: New celecoxib 200 mg PO DAILY 30 days 30 caps 1RF Changed From lisinopril 10 mg PO DAILY 90 days 90 tabs 3RF To lisinopril 20 mg PO DAILY 90 days 90 tabs 3RF
[2024-04-10 10:04] VITALS: BP 150/66; PULSE 55; RESP 16; TEMP 36.7; O2SAT 99; BMI 25.8
== END 2024-04-10 10:43 | disposition home or self-care (01) ==
PROVIDERS: PCP Family Medicine; Visit Provider Family Medicine
DX: I10 Essential (primary) hypertension (principal); E11.9 Type 2 diabetes mellitus without complications; M67.40 Ganglion, unspecified site; Z12.11 Encounter for screening for malignant neoplasm of colon; H91.90 Unspecified hearing loss, unspecified ear; M25.572 Pain in left ankle and joints of left foot; E11.65 Type 2 diabetes mellitus with hyperglycemia

== ENCOUNTER → 2024-04-10 09:41 | Outpatient (BNVA) | payer OTHER, SELFPAY | PROVIDERS: PCP Family Medicine; Visit Provider Family Medicine | DX: I10 Essential (primary) hypertension (principal); E11.9 Type 2 diabetes mellitus without complications; M67.40 Ganglion, unspecified site; H91.90 Unspecified hearing loss, unspecified ear; M25.572 Pain in left ankle and joints of left foot; Z79.899 Other long term (current) drug therapy | CPT/HCPCS: 83036; 99212 ==

== ENCOUNTER 2024-04-19 12:35 | Outpatient (AMB) | payer OTHER, SELFPAY ==
[2024-04-19 12:47] VITALS: BP 161/72; PULSE 61; BMI 24.7
--- NOTE | 2024-04-19 12:47 | MHC.OFFVIS ---
Vital Signs 04/19/24 12:47 Height 5 ft 4 in Weight 144 lb 2.917 oz BMI 24.7 BP 161/72 H Blood Pressure Location Lt brachial Position Sitting Pulse 61 Intake Visit Reasons: s/p egd/colon Intake Note: Josie presents in follow up s/p EGD/colonoscopy. CC: Patient reports diarrhea 2 days ago and gas for 2 days. Denies other GI concerns today. Dairy Nutritionist Required: Yes Dairy Nutritionist Language: Collaborating Supervising Physician Name: daughter Accompanied by: Family/Other Allergies No Known Allergies Allergy (Verified 04/10/24 10:02) HPI HPI s/p egd/colon: Details: LAST VISIT Screening for colon cancer GERD (gastroesophageal reflux disease) Plan Patient denies any cardiac or respiratory symptoms.? Patient reports occasional acid reflux, however she states that it is controlled for the most part with pantoprazole. Patient will be sent for upper endoscopy to evaluate for esophagitis, gastritis, Barretts. Denies any issues with anesthesia in the past.? Denies any history of sleep apnea.? No history infectious diseases in the past or present.? Not on any anticoagulation therapy.? No family or personal history of colon cancer or polyps.? Patient denies melena, hematochezia, unintentional weight loss or ribbon like stools.? Discussed at length the pre-procedure,? prep, diet & medications as well as what to expect prior, during and after the procedure.?? Stressed the importance of good bowel prep.? Recommended the use of Vaseline or Calmoseptine OTC & baby wipes with bowel movements to promote comfort.? ?Patient verbalizes understanding and agrees to plan of care.? She was given the opportunity to ask questions and all questions answered.? We will see her after the procedure.? Medications New bisacodyl (Dulcolax (bisacodyl)) take 4 tabs at noon the day before your colonoscopy 20 mg (4 x 5 mg) PO ONCE 1 day 4 tabs 0RF Z12.11 polyethylene glycol 3350 (Miralax) As directed by gastroenterology department at [facility] 238 grams PO ONCE 238 grams 0RF Z12.11 UPPER ENDOSCOPY AND COLONOSCOPY Findings: Larynx:normal Esophagus: GE junction at 36 cm, diaphragm hiatus at 38 cm, lax LES with small sliding 1-2 cm hiatal hernia Stomach: Small superficial ulcer near the pylorus. Biopsies were obtained. Grade 2 flap valve on retroflexed examination of the cardia. Duodenum: Normal bulb and descending duodenum, Intervention: Biopsies as noted above, COLONOSCOPY Instrument: Olympus variable stiffness pediatric scope 190L Colonoscopy Monitoring: Vital signs and clinical assessment, continuous EKG monitoring, Pulse oximetry, Carbon Dioxide monitoring and blood pressure monitoring were done throughout the procedure. Colon withdrawal time was 15 minutes. Procedure: The patient was placed in the left lateral decubitis position and pre-procedure medications were administered. After a digital rectal examination of the ano-rectum, the video colonoscope was inserted into the rectum and advanced through the colon to the cecum/TI. The colonoscope was slowly withdrawn in a retrograde panoramic fashion and the colon mucosa was carefully examined including a retroflexed view of the rectum. Findings and interventions are described below. Procedure Difficulty: difficult due to looping and stiff colon with severe diverticulosis Findings: Terminal Ileum-not intubated Cecum:normal Ascending Colon: normal Transverse Colon -normal Descending Colon:normal Sigmoid Colon: severe diverticulosis with luminal narrowing and tightness Rectum: Retroflexion with small internal hemorrhoids, grade I Anorectum - normal Colon preparation: [place] Bowel Preparation Scale Right colon; 2 Transverse colon: 2 Left colon; 1-2 (0 = Unprepared colon segment with mucosa not seen due to solid stool that cannot be cleared. 1 = Portion of mucosa of the colon segment seen, but other areas of the colon segment not well seen due to staining, residual stool and/or opaque liquid. 2 = Minor amount of residual staining, small fragments of stool and/or opaque liquid, but mucosa of colon segment seen well. 3 = Entire mucosa of colon segment seen well with no residual staining, small fragments of stool or opaque liquid) Impression and Post Procedure Diagnosis: Endoscopy Findings: gastric ulcer gastritis lax LES Colonoscopy Findings: diverticulosis internal hemorrhoids Plan: Await Pathology results Repeat Colonoscopy in 1-2 years due to fair prep on the left or earlier if clinically indicated High fiber diet leaflet avoid straining at stool, epsom salts and sitz bath, anusol supps or cream if H pylori pos then treat check PPI compliance and nsaid hx PATHOLOGY RESULTS Addendum Addendum #1 Immunostain for H. pylori is negative. Control stains appropriately. Electronically Signed By: Jyoti Boone 04/11/24 0757 Diagnosis Stomach, biopsy: Gastric body mucosa with minimal chronic active gastritis; negative for intestinal metaplasia and dysplasia Comment: Immunostain for H. pylori pending; addendum to follow TODAY'S VISIT Patient is here today for follow-up and to discuss upper endoscopy in colonoscopy results. Patient denies any ill effects from the prep, anesthesia or procedure itself. Patient had suboptimal prep and will need to repeat colonoscopy in 1-2 years. Patient does admit occasionally she feels like she might be constipated. Does not feel like she empties her bowels completely. Patient had moderate diverticulosis in sigmoid colon with narrowing that caused difficulty navigating through that area. Patient denies dyspepsia, dysphagia or odynophagia. Symptoms of acid reflux are suppressed for the most part. Patient does admit that few days ago she had diarrhea and then bloating and gas. Patient does admit occasional postprandial abdominal bloating depending on what she eats. Currently patient is taking pantoprazole daily. Patient did started to take more fiber and including fiber in her diet after colonoscopy. [facility] Medical History Microcytic anemia Renal calculi Asthma GERD (gastroesophageal reflux disease) Osteoporosis Diabetes Thyroid disease Elevated cholesterol HTN (hypertension) Surgical History History of esophagogastroduodenoscopy (EGD) H/O colonoscopy Hx of cholecystectomy History of thyroid surgery H/O: hysterectomy Social History Housing: Apartment Alcohol intake: never Patient Tobacco Use Status: Never used Tobacco e-Cigarette/Vaping Use: Never Used Second Hand Smoke Exposure: No service: No Current occupational status: retired Current occupational exposures/hazards: No Cognitive needs: No Hearing needs: No Vision needs: No Review of Systems Const Denies weight gain and Denies weight loss ENT Reports no additional complaints, Denies dysphagia and Denies odynophagia Card Reports no additional complaints Resp Reports no additional complaints GI Denies abdominal pain, Denies belching, Denies melena, Denies bloating, Denies change in bowel habits, Denies dysphagia, Denies excessive flatus, Denies dyspepsia, Reports heartburn (Occasional), Denies diarrhea, Denies loose stools, Denies nausea, Denies odynophagia and Denies vomiting Reports no additional complaints Musc Reports no additional complaints Neuro Reports no additional complaints Psych Reports no additional complaints Endo Reports no additional complaints Physical Exam Vital Signs: Last Vital Signs Pulse 61 04/19/24 12:47 BP 161/72 H 04/19/24 12:47 BMI result Body Mass Index 24.7 Const General: healthy appearing, no acute distress and well developed Nutritional Appearance: well nourished Orientation/consciousness: patient oriented x3 Resp Effort & Inspection: normal respiratory effort, able to speak in complete sentences, no tracheal deviation and symmetric chest movement Auscultation: clear to auscultation bilaterally Cardio Rate: regular rate GI Inspection: Yes normal to inspection and No distended Palpation (GI): Soft to palpation, not firm, nontender and No hepatosplenomegaly present Auscultation: normal bowel sounds General: Yes no CVA tenderness Back/Spine/Pelvis Back: no CVA tenderness Skin General skin exam: elasticity normal, turgor normal and dry skin Neuro General: patient oriented x3 Psych Appearance: grossly normal Mental Status: mental status grossly normal Assessment & Plan Assessment & Plan (1) GERD (gastroesophageal reflux disease): Code(s): K21.9 - Gastro-esophageal reflux disease without esophagitis Category: Medical Qualifiers: Esophagitis presence: esophagitis presence not specified Qualified Code(s): K21.9 - Gastro-esophageal reflux disease without esophagitis (2) Status post colonoscopy: Code(s): Z98.890 - Other specified postprocedural states (3) Diverticulosis: Code(s): K57.90 - Diverticulosis of intestine, part unspecified, without perforation or abscess without bleeding (4) Constipation: Code(s): K59.00 - Constipation, unspecified Qualifiers: Constipation type: slow transit constipation Qualified Code(s): K59.01 - Slow transit constipation Plan Continue pantoprazole daily. Avoid dietary triggers and late night snacking. Staying upright for minimal 3 hours after meals discussed with patient. Patient will start taking Dulcolax daily. Increase fiber intake. Increase fluid intake and activity to promote better bowel motility. Severe Diverticulosis in sigmoid colon. Patient was encouraged to increase fiber in her diet as well as taking [id number] fiber. Recommended pre and probiotics as well. Patient will take simethicone as needed for abdominal bloating. Discussed with patient low FODMAP diet. List of food recommended as well as list of food to avoid given to patient. Medications: New bisacodyl (Dulcolax (bisacodyl)) 10 mg (2 x 5 mg) PO BEDTIME 180 tabs 4RF methylcellulose (laxative) (Citrucel) take it with full glass of water 500 mg PO DAILY 90 tabs 2RF K59.00 - Constipation, unspecified Refilled simethicone (Gas Relief (simethicone)) 80 mg PO BID-QID PRN 120 tabs 2RF abdominal distention 30 days Coding Level of Care Code Est Pt Level 4 (40112) Complex EM visit Add On G2211 Diagnoses Gastroesophageal reflux disease, unspecified whether esophagitis present K21.9 Esophagitis presence: esophagitis presence not specified Status post colonoscopy Z98.890 Diverticulosis K57.90 Slow transit constipation K59.01 Constipation type: slow transit constipation Time Spent (min) 35 Comment 25 minute spent with patient and additional 10 minutes spent reviewing her records
--- OUTSIDE RECORDS SUMMARY | 2024-04-19 12:52 | XMS_ITS | Encounter Summary ---
Author Organization [employer] Address [address] [facility] 7 [place] [address] Care Team Providers Care Microbiology Supervisor Name Role Phone Unavailable Primary Care Provider Unavailabl e Reason for Visit * Reason Comments Med Refill Encounter Details Date Type Department Care Team ([facility] st Contact Info) Description 11/16/2022 Refill [facility] MED & PEDS [address] [place], [place] [phone] Odalys Mast MD [address] [place] [address] Social History Tobacco Use Types Packs/Day Years [...]
--- OUTSIDE RECORDS SUMMARY | 2024-04-19 12:52 | XMS_ITS | Encounter Summary ---
Author Organization [employer] Address [address] [facility] [address] [place] [address] Care Team Providers Care Engineer Assistant Name Role Phone Unavailable Primary Care Provider Unavailabl e Reason for Visit * Reason Comments Med Refill Encounter Details Date Type Department Care Team (Late st Contact Info) Description 03/21/2022 Refill [facility] MEDICINE [address] [place] [address] Shanon Chauhan MD [address] [place] [address] Social History Tobacco Use Types Packs/Day Years [...]
--- OUTSIDE RECORDS SUMMARY | 2024-04-19 12:52 | XMS_ITS | Encounter Summary ---
Author Organization [employer] Address [address] [facility] 7 [place] [address] Care Team Providers Care Mat Linker Name Role Phone Unavailable Primary Care Provider Unavailabl e Reason for Visit * Reason Comments Med Refill Encounter Details Date Type Department Care Team ([facility] st Contact Info) Description 08/24/2022 Refill [facility] CHC MED & PEDS [address] [place], [place] [phone] Odalys Mast MD [address] [place] [address] Social History Tobacco Use Types Packs/Day Years [...]
--- OUTSIDE RECORDS SUMMARY | 2024-04-19 12:52 | XMS_ITS | Encounter Summary ---
Author Organization [employer] Address [address] [facility] [address]t [place] [address] Care Team Providers Care Improvement Intern Name Role Phone Unavailable Primary Care Provider Unavailabl e Reason for Visit * Reason Comments Med Refill Encounter Details Date Type Department Care Team (Late st Contact Info) Description 09/18/2022 Refill [facility] MEDICINE [address] [place] [address] Shanon Chauhan MD [address] [place] [address] Social History Tobacco Use Types Packs/Day Years [...]
--- OUTSIDE RECORDS SUMMARY | 2024-04-19 12:52 | XMS_ITS | Clinical Summary ---
Author Organization [employer] Address [address] [facility] [address] [place] [address] Care Team Providers Care Production Engineer Name Role Phone Unavailable Primary Care Provider [...]
== END 2024-04-19 13:41 | disposition home or self-care (01) ==
PROVIDERS: PCP Family Medicine; Visit Provider Nurse Practitioner Family
DX: K21.9 Gastro-esophageal reflux disease without esophagitis (principal); Z98.890 Other specified postprocedural states; K57.90 Diverticulosis of intestine, part unspecified, without perforation or abscess without bleeding; K59.01 Slow transit constipation
CPT/HCPCS: 99214; G2211

== ENCOUNTER → 2024-04-19 12:35 | Outpatient (BNVA) | payer OTHER, SELFPAY | PROVIDERS: PCP Family Medicine; Visit Provider Nurse Practitioner Family | DX: K21.9 Gastro-esophageal reflux disease without esophagitis (principal); K59.01 Slow transit constipation; R19.7 Diarrhea, unspecified; Z98.890 Other specified postprocedural states | CPT/HCPCS: 99212 ==

== ENCOUNTER 2024-05-26 12:16 | Outpatient (REF) | payer OTHER, SELFPAY | END 2024-05-26 12:17 | disposition home or self-care (01) | LOC: HO.SH 12:16 | PROVIDERS: Visit Provider Family Medicine | DX: Z01.118 Encounter for examination of ears and hearing with other abnormal findings (principal); H93.293 Other abnormal auditory perceptions, bilateral | CPT/HCPCS: 92557; 92567 ==

== ENCOUNTER 2024-07-13 10:40 | Outpatient (AMB) | payer OTHER, SELFPAY ==
--- NOTE | 2024-07-13 10:45 | A.OFFVIS_ITS ---
Intake Visit Reasons: FU/US Intake Note: Patient presents today for follow up on: renal cyst, incontinence, and kidney stone Urology Medications: Oxybutynin, Vitamin B6 Blood Thinner: none PVR: 31ml's Remote Broadcast Technician Required: Yes Accompanied by: Daughter Allergies No Known Allergies Allergy (Verified 07/13/24 11:12) Medication List - Last Reconciled 07/13/24 by JULIA Al acetaminophen 500 mg PO Q6H PRN albuterol sulfate 90 mcg/actuation 2 inhalations inhalation Q4-6H PRN 30 days alendronate 70 mg PO EASTON 28 days bisacodyl (Dulcolax (bisacodyl)) 10 mg (2 x 5 mg) PO BEDTIME blood sugar diagnostic As directed blood sugar diagnostic (FreeStyle Lite Strips) DX: E11.9, test blood sugar once a day, 90 days blood-glucose meter (FreeStyle Lite Meter kit) DX: E11.9, test blood sugar once a day, duration 999 days bupropion HCl 75 mg PO BID 30 days celecoxib 200 mg PO DAILY 30 days cholecalciferol (vitamin D3) 50 mcg PO BID dulaglutide 3 mg (0.5 mL) subcut QWEEK 90 days ferrous sulfate 325 mg PO DAILY 30 days glipizide 2.5 mg (1/2 x 5 mg) PO BID 90 days lancets (FreeStyle Lancets) Once a Day As directed lancets As directed levothyroxine 100 mcg PO DAILY@0600 lisinopril 20 mg PO DAILY 90 days metformin 850 mg PO TID methylcellulose (laxative) (Citrucel) 500 mg PO DAILY mirabegron ER (Myrbetriq) 25 mg PO DAILY 30 days pantoprazole 40 mg PO DAILY@0630 pyridoxine (vitamin B6) 100 mg PO DAILY 90 days simethicone (Gas Relief (simethicone)) 80 mg PO BID-QID PRN 30 days simvastatin 20 mg PO BEDTIME 90 days timolol maleate 0.5% 1 drp ophthalmic (eye) DAILY HPI Comments Details: Josie is a pleasant 68-year-old Indian-speaking female patient of Dr. Gardner who was accompanied by her daughter at today's visit. She presents to the office today for follow-up of her lower urinary tract symptoms and renal cyst. In discussion with the patient today she reports to be doing and feeling well. She reports compliance with oxybutynin as prescribed. She reports feeling this is been significantly helpful in episodes of urinary urgency and frequency she had been experiencing however feels she continues with stress incontinence. In office urinalysis results reviewed with the patient today. PVR 31 mL. Most recent renal imaging results reviewed with the patient today 10/22 bilateral kidneys with no calculi or hydronephrosis. Right kidney with 4.3, 0.7, and 0.8 cm cyst with benign features that require no imaging follow-up per radiology report. We did discussed further treatment options of stress incontinence and risks and benefits of these treatment options. She denies hematuria, dysuria, foul smelling urine, changes to urinary stream, flank pain, fever, and or chills. Discussed at length importance of managing diabetes for improvement in urinary symptoms as well as for overall health and well-being. She otherwise offers no issues or concerns at this time. [facility] Medical History Microcytic anemia Renal calculi Asthma GERD (gastroesophageal reflux disease) Osteoporosis Diabetes Thyroid disease Elevated cholesterol HTN (hypertension) Surgical History History of esophagogastroduodenoscopy (EGD) H/O colonoscopy Hx of cholecystectomy History of thyroid surgery H/O: hysterectomy Social History Housing: Apartment Alcohol intake: never Patient Tobacco Use Status: Never used Tobacco e-Cigarette/Vaping Use: Never Used Second Hand Smoke Exposure: No service: No Current occupational status: retired Current occupational exposures/hazards: No Cognitive needs: No Hearing needs: No Vision needs: No Review of Systems Const All systems reviewed & are unremarkable except as noted in HPI and below Reports no additional complaints Eyes Reports no additional complaints ENT Reports no additional complaints Card Reports no additional complaints Resp Reports no additional complaints GI Reports no additional complaints Reports as per HPI Musc Reports no additional complaints Neuro Reports no additional complaints Psych Reports no additional complaints Endo Reports as per HPI [place]/Lymph Reports no additional complaints Aller/Immun Reports no additional complaints Physical Exam Const General: cooperative, healthy appearing, comfortable, no acute distress, well developed, alert and awake Orientation/consciousness: patient oriented x3 Limitations: no limitations HEENT Head: Yes normal to inspection, Yes normocephalic and Yes atraumatic Ears: hearing grossly normal bilaterally Eyes General: appearance normal, both eyes and all related structures Neck Neck: Yes normal visual inspection and Yes trachea midline Chest Chest palpation & inspection: normal inspection of the chest Resp Effort & Inspection: normal respiratory effort and able to speak in complete sentences Cardio Rate: regular rate GI Inspection: Yes normal to inspection General: Yes no CVA tenderness Back/Spine/Pelvis Back: no CVA tenderness Skin General skin exam: no rashes or lesions noted Neuro General: patient oriented x3 Extrem General: Yes normal to inspection Psych Appearance: grossly normal and well kempt Mental Status: mental status grossly normal Speech and movement: Normal speech and movement present and Clear speech present Affect: normal affect Attitude: cooperative Thought process: Normal thought process present Thought content: Normal thought content present Insight: Fair insight present (Psych) Judgement: Fair judgement present (Psych) Office Procedures Post Void Residual Post Residual Void Post Void Residual (PVR): 31 [id number] Void Residual by ultrasound Results AMB Urinalysis, Automated UA Leukoctes 15 Mary Alice/uL Last Edit by CherylTeliApp Tani on 07/13/24 11:00 UA Nitrite Last Edit by Anna Freire on 07/13/24 11:00 UA Urobilinogen 0.2 mg/dL Last Edit by [employer] Tani on 07/13/24 11:00 UA Protein 0 mg/dL Last Edit by [employer] Rangeadrian Freire on 07/13/24 11:00 UA pH 6.0 Last Edit by Phlebot[employer] Phlebotomy Solutionsnilam Freire on 07/13/24 11:00 UA Blood 0 Yevgeniy/uL Last Edit by [employer] Rangeadrian Freire on 07/13/24 11:00 UA Specific Idalia 1.010 Last Edit by FilemonSocialanceadrian Freire on 07/13/24 11:00 UA Ketone Negative Last Edit by Anna Freire on 07/13/24 11:00 UA Bilirubin 0 mg/dL Last Edit by Anna Freire on 07/13/24 11:00 UA Glucose 0 mg/dL Last Edit by Anna Freire on 07/13/24 11:00 Results Reviewed Results Reviewed: Laboratory Last Values Urine pH (Auto) 6.0 07/13/24 10:51 Specific Idalia (Auto) 1.010 07/13/24 10:51 Urine Protein (Auto) 0 mg/dL 07/13/24 10:51 Glucose (UA)(Auto) 0 mg/dL 07/13/24 10:51 Urine Ketones (Auto) Negative 07/13/24 10:51 Urine Blood (Auto) 0 Yevgeniy/uL 07/13/24 10:51 Urine Bilirubin (Auto) 0 mg/dL 07/13/24 10:51 Urine Urobilinogen (Auto) 0.2 mg/dL 07/13/24 10:51 Leukocyte Esterase (Auto) 15 Mary Alice/uL 07/13/24 10:51 Date of Service: 10/27/23 Procedure(s): US renal BI FINDINGS: RIGHT KIDNEY: 11.1 x 5.8 x 5.8 cm (SAG x AP x TRV). No hydronephrosis. No renal calculi. Limited visualization. 4.3 cm upper, 0.7 cm upper and 0.8 cm midpole cyst with benign features. There is no specific indication for additional imaging at this time. LEFT KIDNEY: 10.2 x 5.4 x 6.1 cm (SAG x AP x TRV). No hydronephrosis. No renal calculi. Renal cortical thickness is normal. Limited visualization. IMPRESSION: No hydronephrosis. No renal calculi. Limited visualization. Assessment & Plan Assessment & Plan (1) Renal cyst: Code(s): N28.1 - Cyst of kidney, acquired Category: Medical (2) Stress incontinence: Code(s): N39.3 - Stress incontinence (female) (male) Category: Medical (3) Lower urinary tract symptoms: Code(s): R39.9 - Unspecified symptoms and signs involving the genitourinary system Category: Medical Plan In office urinalysis results reviewed the patient today; as noted above. PVR 31 mL. Stop oxybutynin. Start Myrbetriq as discussed and prescribed. Recent renal imaging results were reviewed with the patient and her daughter today. We discussed further treatment options of stress incontinence and risks and benefits of these treatment options. All questions were answered. We discussed potential near future in office urodynamics for further assessment evaluation. We discussed importance of management and diabetes for improvement in lower urinary tract symptoms as well as overall health and well-being. Follow-up in 1-3 months with PVR; or sooner with any issues, concerns, and or questions. Orders: Orders AMB Post Void Residual by ultrasound Today N39.3 - Stress incontinence (female) (male) AMB Urinalysis Automated Today Z13.9 - Encounter for screening, unspecified Medications: New mirabegron ER (Myrbetriq) 25 mg PO DAILY 30 days 30 tabs 3RF N30.10 - Interstitial cystitis (chronic) without hematuria, N32.81 - Overactive bladder, R35.1 - Nocturia, R39.15 - Urgency of urination Discontinued oxybutynin chloride ER Discontinued Reason: Doctor's Order 10 mg PO DAILY 90 days 90 tabs 4RF N32.81 - Overactive bladder Patient Instructions: The patient had an opportunity to ask questions regarding the treatment plan. All questions were answered. Physical exam, labs, and imaging were discussed and reviewed in detail. As well as risks, benefits, and discussion of treatment choices. No major barriers to understanding were identified. The patient expressed understanding and agreement with the above treatment plan. The patient was made aware they should contact our office by phone for worsening of their current condition, the appearance of new symptoms, or with any questions or concerns. Compliance is encouraged with any medications and follow up testing that is ordered. It is a privilege to be allowed the opportunity to participate in? your urological care.? Again, if you have any questions or concerns If you have any questions or concerns please do not hesitate to contact me. The office is [phone]. This note is constructed using voice recognition software. While every effort has been made to ensure accuracy multimedia artist errors may have been included. Yours sincerely, JULIA Al Coding Level of Care Code Est Pt Level 4 (38932) Complex EM visit Add On G2211 Diagnoses Renal cyst N28.1 Stress incontinence N39.3 Lower urinary tract symptoms R39.9 CPT Codes Post Residual Void - PVR CPT Code: 70823-[id number] Void Residual by ultrasound ([id number])
--- OUTSIDE RECORDS SUMMARY | 2024-07-13 11:48 | XMS_ITS | Encounter Summary ---
Author Organization [employer] Address [address] [facility] 7 [place] [address] Care Team Providers Care Russian Teacher Name Role Phone Unavailable Primary Care Provider Unavailabl e Reason for Visit * Reason Comments Med Refill Encounter Details Date Type Department Care Team (Late st Contact Info) Description 11/16/2022 Refill [facility] MED & PEDS [address] [place], [place] [phone] Odalys Mast MD [address] [place], [place] [phone] Social History Tobacco Use Types Packs/Day Years [...]
--- OUTSIDE RECORDS SUMMARY | 2024-07-13 11:48 | XMS_ITS | Encounter Summary ---
Author Organization [employer] Address [address] [facility] 7 [place] [address] Care Team Providers Care Personal Fitness Manager Name Role Phone Unavailable Primary Care Provider Unavailabl e Reason for Visit * Reason Comments Med Refill Encounter Details Date Type Department Care Team (Late st Contact Info) Description 08/24/2022 Refill [facility] MED & PEDS [address] [place], [place] [phone] Odalys Mast MD [address] [place], [place] [phone] Social History Tobacco Use Types Packs/Day Years [...]
--- OUTSIDE RECORDS SUMMARY | 2024-07-13 11:48 | XMS_ITS | Encounter Summary ---
Author Organization [employer] Address [address] [facility] 7 [place] [address] Care Team Providers Care Program Director/Music Director Name Role Phone Unavailable Primary Care Provider Unavailabl e Reason for Visit * Reason Comments Med Refill Encounter Details Date Type Department Care Team (Late st Contact Info) Description 03/21/2022 Refill [facility] MEDICINE [address] [place] [address] Shanon Chauhan MD [address] [place] [address] Social History Tobacco Use Types Packs/Day Years [...]
--- OUTSIDE RECORDS SUMMARY | 2024-07-13 11:48 | XMS_ITS | Encounter Summary ---
Author Organization [employer] Address [address] [facility] 7t [place] [address] Care Team Providers Care Heating And Air Conditioning Mechanic Name Role Phone Unavailable Primary Care Provider Unavailabl e Reason for Visit * Reason Comments Med Refill Encounter Details Date Type Department Care Team (Late st Contact Info) Description 09/18/2022 Refill [facility] MEDICINE [address] [place] [address] Shanon Chauhan MD [address] [place] [address] Social History Tobacco Use Types Packs/Day Years [...]
--- OUTSIDE RECORDS SUMMARY | 2024-07-13 11:48 | XMS_ITS | Clinical Summary ---
Author Organization [employer] Address [address] [facility] 7t [place] [address] Care Team Providers Care Fire Extinguisher Charger Name Role Phone Unavailable Primary Care Provider [...] 04/01, 09/02/2018, Additional history exists COVID-19 Vaccine (2023- season) 2023 06/06/2020, 05/10/2020 Influenza Vaccine (#1) [...] Mammography Report 1 Procedure Note Provider, Amanda, MD - 05/23/2022 Refer to the Notes tab for result details Legacy Procedure: Mammography Report 1 us Odalys Mast MD IMG BI PROCEDURES Final Resul t from Last 3 Months or Most Recently Relevant to Health Maintenance
== END 2024-07-13 11:08 | disposition home or self-care (01) ==
LOC: HO.HUSH 10:41
PROVIDERS: PCP Family Medicine; Visit Provider Nurse Practitioner Family
DX: N28.1 Cyst of kidney, acquired (principal); N39.3 Stress incontinence (female) (male); R39.9 Unspecified symptoms and signs involving the genitourinary system; Z13.9 Encounter for screening, unspecified
CPT/HCPCS: 99214; G2211

== ENCOUNTER → 2024-07-13 10:40 | Outpatient (BNVA) | payer OTHER, SELFPAY | PROVIDERS: PCP Family Medicine; Visit Provider Nurse Practitioner Family | DX: N28.1 Cyst of kidney, acquired (principal); N39.3 Stress incontinence (female) (male); N39.9 Disorder of urinary system, unspecified | CPT/HCPCS: 51798; 81003; 99212 ==

== ENCOUNTER 2024-07-14 09:23 | Outpatient (AMB) | payer OTHER, SELFPAY ==
--- NOTE | 2024-07-14 09:36 | A.OFFPC_ITS ---
Vital Signs 07/14/24 09:38 Height 5 ft 3 in Weight 143 lb BMI 25.3 BP 128/68 Blood Pressure Location Lt brachial Position Sitting Pulse 68 Pulse Source Pulse Oximeter Temp 97.8 F Temp Source Temporal Artery Scan Pulse Oximetry (%) 100 Oxygen Delivery Method Room Air Intake Visit Reasons: f/u diabetes, HTN Intake Note: Follow up dm, and htn Shear Setter Required: No Allergies No Known Allergies Allergy (Verified 07/14/24 09:37) Medication List - Last Reconciled 07/14/24 by Ricardo Gardner MD acetaminophen 500 mg PO Q6H PRN albuterol sulfate 90 mcg/actuation 2 inhalations inhalation Q4-6H PRN 30 days alendronate 70 mg PO EASTON 28 days bisacodyl (Dulcolax (bisacodyl)) 10 mg (2 x 5 mg) PO BEDTIME blood sugar diagnostic As directed blood sugar diagnostic (FreeStyle Lite Strips) DX: E11.9, test blood sugar once a day, 90 days blood-glucose meter (FreeStyle Lite Meter kit) DX: E11.9, test blood sugar once a day, duration 999 days bupropion HCl 75 mg PO BID 30 days celecoxib 200 mg PO DAILY 30 days cholecalciferol (vitamin D3) 50 mcg PO BID dulaglutide 3 mg (0.5 mL) subcut QWEEK 90 days ferrous sulfate 325 mg PO DAILY 30 days glipizide 2.5 mg (1/2 x 5 mg) PO BID 90 days lancets (FreeStyle Lancets) Once a Day As directed lancets As directed levothyroxine 100 mcg PO DAILY@0600 lisinopril 20 mg PO DAILY 90 days metformin 850 mg PO TID methylcellulose (laxative) (Citrucel) 500 mg PO DAILY mirabegron ER (Myrbetriq) 25 mg PO DAILY 30 days pantoprazole 40 mg PO DAILY@0630 pyridoxine (vitamin B6) 100 mg PO DAILY 90 days simethicone (Gas Relief (simethicone)) 80 mg PO BID-QID PRN 30 days simvastatin 20 mg PO BEDTIME 90 days timolol maleate 0.5% 1 drp ophthalmic (eye) DAILY Tobacco use date assessed: 07/14/24 Fall risk assessment: No Falls in past year Last assessed Fall Risk: 07/14/24 Dental Screening Dental Screen Date: 07/14/24 Did you have a dental visit in the last 12 months?: Yes Did you have a dental problem in the last 6 months where you did not have access to dental care?: No Was dental information given to patient?: Patient has dentist HPI f/u diabetes, HTN HPI Details 68 y/o female presents to f/u diabetes, HTN. A1c today 6.7%. She is on metformin 850mg t.i.d. Blood pressure today 128/68, 68p. She is on lisinopril 20mg daily. Has complaints of ankle swelling. [facility] Medical History Microcytic anemia Renal calculi Asthma GERD (gastroesophageal reflux disease) Osteoporosis Diabetes Thyroid disease Elevated cholesterol HTN (hypertension) Surgical History History of esophagogastroduodenoscopy (EGD) H/O colonoscopy Hx of cholecystectomy History of thyroid surgery H/O: hysterectomy Social History Housing: Apartment Alcohol intake: never Patient Tobacco Use Status: Never used Tobacco e-Cigarette/Vaping Use: Never Used Second Hand Smoke Exposure: No service: No Current occupational status: retired Current occupational exposures/hazards: No Cognitive needs: No Hearing needs: No Vision needs: No Questionnaire Thrive Questionnaire Date Thrive assessed: 07/14/24 I am a: Patient What is your living situation today?: I have a steady place to live Within the past 12 months, did the food you bought not last and you didn't have the money to get more?: Never true Within the past 12 months, did you worry whether your food would run out before you got money to buy more?: Never true Do you have trouble paying for medicines?: No Do you have trouble getting transportation to medical appointments?: No Do you have trouble paying your heating and electricity bill?: No Do you have trouble taking care of your child, family member or friend?: No Do you have trouble with day-to-day activities such as bathing, preparing meals, shopping, managing finances, etc.?: No Are you currently unemployed and looking for a job?: No Are you interested in more education?: No Please select the resources that you would like help with: None Currently or been in a relationship where the following occur: No concerns reported THRIVE Score: 0 CIRO-7 AMB Questionnaire CIRO-7 Date CIRO - 7 assessed: 11/13/22 Source: Developed by Drs. Jamil Peña, Keyonna Malone, Tarik Mercado and colleagues, with an educational celso from [employer]. Review of Systems Const Denies chills, Denies fatigue, Denies fever(s), Denies headache(s) and Denies weakness ENT Denies dizziness and Denies headache(s) Card Denies dyspnea Resp Denies cough, Denies dyspnea, Denies wheezing and Denies other (shortness of breath) Musc Denies numbness and Denies tingling Neuro Denies dizziness, Denies headache(s), Denies numbness, Denies tingling and Denies weakness Psych Denies anxiety and Denies depression Endo Denies fatigue Aller/Immun Denies wheezing Physical exam (Primary Care) Vital Signs: Last Vital Signs Temp 97.8 F 07/14/24 09:38 Pulse 68 07/14/24 09:38 BP 128/68 07/14/24 09:38 Pulse Ox 100 07/14/24 09:38 Oxygen Delivery Method Room Air 07/14/24 09:38 BMI result Body Mass Index 25.3 Tobacco/Smoking Status: Tobacco use Status Tobacco use date assessed 07/14/24 07/14/24 09:38 Patient Tobacco Use Status Never used Tobacco 07/14/24 09:38 e-Cigarette/Vaping Use Never Used 07/14/24 09:38 Thrive Assessment: Date of Thrive Assessment Date Thrive assessed 07/14/24 07/14/24 09:38 Currently or been in a relationship where the following occur: No concerns reported Const General: well developed; No acute distress Nutritional Appearance: well nourished Orientation/consciousness: patient oriented x3 HENMT Head: Yes normocephalic and Yes atraumatic Eyes General: appearance normal, both eyes and all related structures Pupils: Equal, round and reactive pupils present EOM: EOMs intact bilaterally Resp Effort & Inspection: normal respiratory effort Neuro General: patient oriented x3 and gait normal Cranial nerves: Yes Equal, round and reactive pupils present Psych Affect: normal affect Results AMB Hemoglobin A1c AMB Hemoglobin A1c 6.7 % Last Edit by Mimi Barragan MA on 07/14/24 10:06 Results Reviewed Results Reviewed: Laboratory Last Values Hgb A1c (Clinic) 6.7 % (4.0-6.0) H 07/14/24 10:04 Coding Level of Care Code Est Pt Level 4 (99339) Diagnoses Diabetes type 2, controlled E11.9 Essential hypertension I10 Ankle swelling M25.473 Neoplasm of uncertain behavior of skin D48.5 Assessment & Plan Assessment & Plan (1) Diabetes type 2, controlled: Code(s): E11.9 - Type 2 diabetes mellitus without complications Category: Medical Plan: A1c?6.7%.??Good?control.??Goal?is?less?than?7.0%. Continue?current?medication?regimen (2) Essential hypertension: Code(s): I10 - Essential (primary) hypertension Category: Medical Plan: Blood?pressure?is?well?controlled.??Goal?is?less?than?140/90 Continue?current?medications (3) Ankle swelling: Code(s): M25.473 - Effusion, unspecified ankle Category: Medical Plan: Recurrent Left?ankle?pain?and?swelling Check?x-ray Elevate?leg?and?use?ice Start?physical?therapy (4) Neoplasm of uncertain behavior of skin: Code(s): D48.5 - Neoplasm of uncertain behavior of skin Category: Medical Plan: Refer?to?dermatology Orders: Orders AMB Hemoglobin A1c Today E11.65 - Type 2 diabetes mellitus with hyperglycemia, E11.9 - Type 2 diabetes mellitus without complications XR ankle LT min 3V Today M25.473 - Effusion, unspecified ankle PT Evaluation and Treatment Today M25.473 - Effusion, unspecified ankle Referrals Dermatology Referral D48.5 - Neoplasm of uncertain behavior of skin
[2024-07-14 09:38] VITALS: BP 128/68; PULSE 68; TEMP 36.6; O2SAT 100; BMI 25.3
--- OUTSIDE RECORDS SUMMARY | 2024-07-14 09:40 | XMS_ITS | Encounter Summary ---
Author Organization [employer] Address [address] [facility] 7 [place] [address] Care Team Providers Care Ground Crew Supervisor Name Role Phone Unavailable Primary Care Provider Unavailabl e Reason for Visit * Reason Comments Med Refill Encounter Details Date Type Department Care Team (Late st Contact Info) Description 11/16/2022 Refill [facility] CH[facility] MED & PEDS [address] [place], [place] [phone] Odalys Mast MD [address] [place], [place] [phone] Social History Tobacco Use Types Packs/Day Years [...]
--- OUTSIDE RECORDS SUMMARY | 2024-07-14 09:40 | XMS_ITS | Encounter Summary ---
Author Organization [employer] Address [address] [facility] 7 [place] [address] Care Team Providers Care Blow Machine Tender Starch Spraying Name Role Phone Unavailable Primary Care Provider Unavailabl e Reason for Visit * Reason Comments Med Refill Encounter Details Date Type Department Care Team (Late st Contact Info) Description 09/18/2022 Refill [facility] MEDICINE [address] [place] [address] Shanon Chauhan MD [address] [place] [address] Social History Tobacco Use Types Packs/Day Years [...]
--- OUTSIDE RECORDS SUMMARY | 2024-07-14 09:40 | XMS_ITS | Encounter Summary ---
Author Organization [employer] Address [address] [facility] 7 [place] [address] Care Team Providers Care Hospital Orderly Name Role Phone Unavailable Primary Care Provider Unavailabl e Reason for Visit * Reason Comments Med Refill Encounter Details Date Type Department Care Team (Late st Contact Info) Description 03/21/2022 Refill [facility] MEDICINE [address] [place] [address] Shanon Chauhan MD [address] [place] [address] Social History Tobacco Use Types Packs/Day Years [...]
--- OUTSIDE RECORDS SUMMARY | 2024-07-14 09:40 | XMS_ITS | Clinical Summary ---
Author Organization [employer] Address [address] [facility] 7t [place] [address] Care Team Providers Care Housekeeper Cleaning Cooking Name Role Phone Unavailable Primary Care Provider [...] patient's age to complete this topic Meningococcal B Vaccine Aged Out No l onger eligible based on patient's age to complete [...]
--- OUTSIDE RECORDS SUMMARY | 2024-07-14 09:40 | XMS_ITS | Encounter Summary ---
Author Organization [employer] Address [address] [facility] 7 [place] [address] Care Team Providers Care Licensed Chemical Spray Technician Name Role Phone Unavailable Primary Care Provider Unavailabl e Reason for Visit * Reason Comments Med Refill Encounter Details Date Type Department Care Team ([facility] st Contact Info) Description 08/24/2022 Refill [facility] CHC MED & PEDS [address] [place], [place] [phone] Odalys Mast MD [address] [place], [place] [phone] Social History Tobacco Use Types Packs/Day Years [...]
== END 2024-07-14 10:24 | disposition home or self-care (01) ==
LOC: HO.HMCFM 09:30
PROVIDERS: PCP Family Medicine; Visit Provider Family Medicine
DX: E11.9 Type 2 diabetes mellitus without complications (principal); I10 Essential (primary) hypertension; M25.473 Effusion, unspecified ankle; D48.5 Neoplasm of uncertain behavior of skin; E11.65 Type 2 diabetes mellitus with hyperglycemia

== ENCOUNTER → 2024-07-14 09:23 | Outpatient (BNVA) | payer OTHER, SELFPAY | PROVIDERS: PCP Family Medicine; Visit Provider Family Medicine | DX: E11.65 Type 2 diabetes mellitus with hyperglycemia (principal); I10 Essential (primary) hypertension; M25.473 Effusion, unspecified ankle; D48.5 Neoplasm of uncertain behavior of skin; Z79.84 Long term (current) use of oral hypoglycemic drugs | CPT/HCPCS: 83036; 99212 ==

== ENCOUNTER 2024-07-18 11:47 | Outpatient (AMB) | payer OTHER, SELFPAY ==
--- NOTE | 2024-07-18 11:49 | MHC.OFFVIS ---
Vital Signs 07/18/24 11:52 Height 5 ft 3 in Weight 138 lb 14.259 oz BMI 24.6 BP 139/59 L Blood Pressure Location Rt brachial Position Sitting Pulse 61 Intake Visit Reasons: 3 mo f/u Gerd, Diverticulosis Intake Note: Josie presents in the office as a 3 month follow up. CC: She states that she takes dulcolax and she has been complaining to having more BMs - she was told to cut it down but she wants to comfirm with Hollie. Composing Room Supervisor Required: Yes Composing Room Supervisor Name: Daughter Allergies No Known Allergies Allergy (Verified 07/18/24 11:54) HPI HPI 3 mo f/u Gerd, Diverticulosis: Details: LAST VISIT: GERD (gastroesophageal reflux disease) Status post colonoscopy Diverticulosis Constipation Plan Continue pantoprazole daily. Avoid dietary triggers and late night snacking. Staying upright for minimal 3 hours after meals discussed with patient. Patient will start taking Dulcolax daily. Increase fiber intake. Increase fluid intake and activity to promote better bowel motility. Severe Diverticulosis in sigmoid colon. Patient was encouraged to increase fiber in her diet as well as taking [id number] fiber. Recommended pre and probiotics as well. Patient will take simethicone as needed for abdominal bloating. Discussed with patient low FODMAP diet. List of food recommended as well as list of food to avoid given to patient. Medications New bisacodyl (Dulcolax (bisacodyl)) 10 mg (2 x 5 mg) PO BEDTIME 180 tabs 4RF methylcellulose (laxative) (Citrucel) take it with full glass of water 500 mg PO DAILY 90 tabs 2RF K59.00 Refilled simethicone (Gas Relief (simethicone)) 80 mg PO BID-QID PRN 120 tabs 2RF abdominal distention 30 days TODAY'S VISIT Patient is here today for follow-up. Patient is accompanied by her and her daughter. Patient reports that she has been feeling well, however she had diarrhea after starting to take Dulcolax. When she was taking that Dulcolax every day and she began having more frequent and loose stools. Patient's daughter had patient taking it only when she needed and she states that she did well doing that. Denies melena, hematochezia, unintentional weight loss or ribbon like stools. Patient denies dyspepsia, dysphagia or odynophagia. Patient reports that she is no longer having abdominal bloating and not using simethicone anymore. [facility] Medical History Microcytic anemia Renal calculi Asthma GERD (gastroesophageal reflux disease) Osteoporosis Diabetes Thyroid disease Elevated cholesterol HTN (hypertension) Surgical History History of esophagogastroduodenoscopy (EGD) H/O colonoscopy Hx of cholecystectomy History of thyroid surgery H/O: hysterectomy Social History Housing: Apartment Alcohol intake: never Patient Tobacco Use Status: Never used Tobacco e-Cigarette/Vaping Use: Never Used Second Hand Smoke Exposure: No service: No Current occupational status: retired Current occupational exposures/hazards: No Cognitive needs: No Hearing needs: No Vision needs: No Review of Systems Const Denies weight gain and Denies weight loss ENT Reports no additional complaints, Denies dysphagia and Denies odynophagia Card Reports no additional complaints Resp Reports no additional complaints GI Denies abdominal pain, Denies belching, Denies melena, Denies bloating, Denies change in bowel habits, Denies dysphagia, Denies excessive flatus, Denies dyspepsia, Reports heartburn (Occasional), Denies diarrhea, Reports loose stools (Occasional), Denies nausea, Denies odynophagia and Denies vomiting Reports no additional complaints Musc Reports no additional complaints Neuro Reports no additional complaints Psych Reports no additional complaints Endo Reports no additional complaints Physical Exam Vital Signs: Last Vital Signs Pulse 61 07/18/24 11:52 BP 139/59 L 07/18/24 11:52 BMI result Body Mass Index 24.6 Const General: healthy appearing, no acute distress and well developed Nutritional Appearance: well nourished Orientation/consciousness: patient oriented x3 Resp Effort & Inspection: normal respiratory effort, able to speak in complete sentences, no tracheal deviation and symmetric chest movement Auscultation: clear to auscultation bilaterally Cardio Rate: regular rate GI Inspection: Yes normal to inspection and No distended Palpation (GI): Soft to palpation, not firm, nontender and No hepatosplenomegaly present Auscultation: normal bowel sounds General: Yes no CVA tenderness Back/Spine/Pelvis Back: no CVA tenderness Skin General skin exam: elasticity normal, turgor normal and dry skin Neuro General: patient oriented x3 Psych Appearance: grossly normal Mental Status: mental status grossly normal Assessment & Plan Assessment & Plan (1) GERD (gastroesophageal reflux disease): Code(s): K21.9 - Gastro-esophageal reflux disease without esophagitis Category: Medical Qualifiers: Esophagitis presence: esophagitis presence not specified Qualified Code(s): K21.9 - Gastro-esophageal reflux disease without esophagitis (2) Diverticulosis: Code(s): K57.90 - Diverticulosis of intestine, part unspecified, without perforation or abscess without bleeding (3) Constipation: Code(s): K59.00 - Constipation, unspecified Qualifiers: Constipation type: slow transit constipation Qualified Code(s): K59.01 - Slow transit constipation Plan Patient will increase fiber in her diet. Patient will try prune juice and prunes. She will use Dulcolax if needed or maybe try to take it 1 tablet every other day. Patient will continue taking pantoprazole daily. Avoid dietary triggers in late night snacking. Staying upright for minimum 3 hours after meals discussed with patient. Patient will return in 3 months, sooner on as needed basis. She is agreeable to this plan and verbalizes understanding of instructions. She was given the opportunity to ask questions and all questions answered. Thank you for allowing me to participate in her care Medications: Discontinued celecoxib Discontinued Reason: Patient Completed Course 200 mg PO DAILY 30 days 30 caps 1RF Coding Level of Care Code Est Pt Level 3 (11606) Diagnoses Gastroesophageal reflux disease, unspecified whether esophagitis present K21.9 Esophagitis presence: esophagitis presence not specified Diverticulosis K57.90 Slow transit constipation K59.01 Constipation type: slow transit constipation Time Spent (min) 25 Comment 15 minutes spent with patient and additional 10 minutes spent reviewing her records
[2024-07-18 11:52] VITALS: BP 139/59; PULSE 61; BMI 24.6
--- OUTSIDE RECORDS SUMMARY | 2024-07-18 13:01 | XMS_ITS | Encounter Summary ---
Author Organization [employer] Address [address] [facility] 7 [place] [address] Care Team Providers Care Marketing Program Manager Name Role Phone Unavailable Primary Care Provider Unavailabl e Reason for Visit * Reason Comments Med Refill Encounter Details Date Type Department Care Team ([facility] st Contact Info) Description 08/24/2022 Refill [facility] CHC MED & PEDS [address] [place], [place] [phone] Odalys Mast MD [address] [place], [place] [phone] Social History Tobacco Use Types Packs/Day Years [...]
--- OUTSIDE RECORDS SUMMARY | 2024-07-18 13:01 | XMS_ITS | Encounter Summary ---
Author Organization [employer] Address [address] [facility] 7 [place] [address] Care Team Providers Care Sterile Process Coordinator Name Role Phone Unavailable Primary Care Provider Unavailabl e Reason for Visit * Reason Comments Med Refill Encounter Details Date Type Department Care Team (Late st Contact Info) Description 11/16/2022 Refill [facility] CH[facility] MED & PEDS [address] [place], [place] [phone] Odayls Mast MD 505 [place], [place] [phone] Social History Tobacco Use Types Packs/Day Years [...]
--- OUTSIDE RECORDS SUMMARY | 2024-07-18 13:01 | XMS_ITS | Encounter Summary ---
Author Organization [employer] Address [address] [facility] 7t [place] [address] Care Team Providers Care Interactive Producer Name Role Phone Unavailable Primary Care Provider Unavailabl e Reason for Visit * Reason Comments Med Refill Encounter Details Date Type Department Care Team (Late st Contact Info) Description 09/18/2022 Refill [facility] MEDICINE [address] [place] [address] Shanon Chauhan MD [address] [place] [address] Social History Tobacco Use Types Packs/Day Years [...]
--- OUTSIDE RECORDS SUMMARY | 2024-07-18 13:01 | XMS_ITS | Clinical Summary ---
Author Organization [employer] Address [address] [facility] 7t [place] [address] Care Team Providers Care Program Eligibility Specialist Name Role Phone Unavailable Primary Care Provider [...]
--- OUTSIDE RECORDS SUMMARY | 2024-07-18 13:01 | XMS_ITS | Encounter Summary ---
Author Organization [employer] Address [address] [facility] 7t [place] [address] Care Team Providers Care Scout Leaser Name Role Phone Unavailable Primary Care Provider Unavailabl e Reason for Visit * Reason Comments Med Refill Encounter Details Date Type Department Care Team (Late st Contact Info) Description 03/21/2022 Refill [facility] MEDICINE [address] [place] [address] Shanon Chauhan MD [address] [place] [address] Social History Tobacco Use Types Packs/Day Years [...]
== END 2024-07-18 12:25 | disposition home or self-care (01) ==
LOC: HO.HGI 11:48
PROVIDERS: PCP Family Medicine; Visit Provider Nurse Practitioner Family
DX: K21.9 Gastro-esophageal reflux disease without esophagitis (principal); K57.90 Diverticulosis of intestine, part unspecified, without perforation or abscess without bleeding; K59.01 Slow transit constipation
CPT/HCPCS: 99213

== ENCOUNTER → 2024-07-18 11:47 | Outpatient (BNVA) | payer OTHER, SELFPAY | PROVIDERS: PCP Family Medicine; Visit Provider Nurse Practitioner Family | DX: K21.9 Gastro-esophageal reflux disease without esophagitis (principal); K57.90 Diverticulosis of intestine, part unspecified, without perforation or abscess without bleeding; K59.01 Slow transit constipation | CPT/HCPCS: 99212 ==

== ENCOUNTER 2024-08-25 10:11 | Outpatient (REF) | payer OTHER, SELFPAY ==
--- NOTE | ~2024-08-25 | MM_ITS ---
EXAMINATION: MM DIAGNOSTIC DIGITAL BREAST TOMOSYNTHESIS, BILATERAL CLINICAL INFORMATION: Two-year follow-up for a few punctate calcifications in the retroareolar region of the right breast. COMPARISON: Mammography: Comparison is made with relevant prior exams. TECHNIQUE: Digital breast mammography with tomosynthesis is performed in both the craniocaudal and mediolateral oblique views along with computer-aided detection (CAD). FINDINGS: There are scattered areas of fibroglandular density (ACR BI-RADS breast composition Category b). Left: Oval mass in the retroareolar region posterior depth left breast stable dating back to 2020. There are no significant masses, abnormal calcifications, or other abnormalities. Right: A few punctate calcifications in the retroareolar region of the right breast are not significantly changed from prior magnification views dating back for 2 years and therefore benign. No suspicious masses calcifications or other abnormal findings. Results are provided to the patient at time of visit by the technologist. MM/MM tomosynthesis diagnostic BI IMPRESSION: Right: Benign. Left: Benign. ASSESSMENT: BI-RADS BI-RADS 2 - Benign Findings RECOMMENDATION: 1 year F/U This patient's information was entered into a reminder system with a target due date for their next mammogram. Electronically signed by: Rossi Muñoz DO 08/25/2024 11:02 AM EDT
--- OUTSIDE RECORDS SUMMARY | 2024-08-25 10:51 | XMS_ITS | Encounter Summary ---
Author Organization [employer] Address [address] [facility] 7 [place] [address] Care Team Providers Care Cinder Crew Worker Name Role Phone Unavailable Primary Care Provider Unavailabl e Reason for Visit * Reason Comments Med Refill Encounter Details Date Type Department Care Team (Late st Contact Info) Description 03/21/[address] [facility] MEDICINE [address] [place] [address] Shanon Chauhan MD 505 [place] [address] Social History Tobacco Use Types Packs/Day Years [...]
== END 2024-08-25 10:12 | disposition home or self-care (01) ==
LOC: HO.MAMMO 10:11
PROVIDERS: Visit Provider Family Medicine
DX: R92.1 Mammographic calcification found on diagnostic imaging of breast (principal)
CPT/HCPCS: 77062; 77066

== ENCOUNTER → 2024-08-25 10:30 | Outpatient (BNV) | payer OTHER, SELFPAY | PROVIDERS: Visit Provider Internal Medicine | DX: R92.1 Mammographic calcification found on diagnostic imaging of breast (principal) | CPT/HCPCS: 77066; G0279 ==

== ENCOUNTER 2024-10-19 09:53 | Outpatient (REF) | payer OTHER, SELFPAY ==
--- OUTSIDE RECORDS SUMMARY | 2024-10-19 11:15 | XMS_ITS | Encounter Summary ---
Author Organization [employer] Address [address] [facility] 7 [place] [address] Care Team Providers Care Fluorescent Lighting Model Maker Name Role Phone Unavailable Primary Care Provider Unavailabl e Reason for Visit * Reason Comments Med Refill Encounter Details Date Type Department Care Team (Late st Contact Info) Description 03/21/[address] [facility] [address] [place] [address] Shanon Chauhan MD [address] [place] [address] Social History Tobacco Use Types Packs/Day Years [...]
--- OUTSIDE RECORDS SUMMARY | 2024-10-19 11:15 | XMS_ITS | Patient Health Record ---
Author Organization [facility] Address [address] [place] [id number] Care Team Providers Care Substation Superintendent Name Role Phone Jamil Uamna Luisito [phone] Reason For Referral No Information Plan Of Treatment No Information
[2024-10-19 11:56] LABS: Anion Gap 12 (12-20); Blood Urea Nitrogen 14 mg/dL (9-16); Calcium 9.1 mg/dL (8.4-10.2); Carbon Dioxide 27 mmol/L (22-29); Chloride 107 mmol/L (96-108); Estimated Glomerular Filt Rate > 60; Potassium 4.6 mmol/L (3.3-5.1); Sodium 141 mmol/L (135-145)
[2024-10-19 14:34] LABS: Appearance Urine Clear; Glucose Urine UA Negative (Negative); PH 7.5 (5.0-9.0); Specific Gravity - Urine 1.010 (1.005-1.025); UMIC TRIGGER UA YES
== END 2024-10-19 09:54 | disposition home or self-care (01) ==
LOC: HO.WFDLDS 09:53
PROVIDERS: Visit Provider Family Medicine
DX: Z00.00 Encounter for general adult medical examination without abnormal findings (principal); I10 Essential (primary) hypertension
CPT/HCPCS: 36415; 80048; 81001; 82043; 82570

== ENCOUNTER 2024-10-25 11:34 | Outpatient (AMB) | payer OTHER, SELFPAY ==
--- NOTE | 2024-10-25 11:49 | MHC.PC.OV ---
Vital Signs 10/25/24 11:52 Height 5 ft 3 in Weight 144 lb 2 oz BMI 25.5 BP 144/67 H Blood Pressure Location Rt brachial Position Sitting Respiration 16 Pulse 60 Pulse Source Pulse Oximeter Temp 97.9 F Temp Source Oral Pulse Oximetry (%) 98 Oxygen Delivery Method Room Air Intake Visit Reasons: f/u diabetes, HTN Intake Note: patient here for follow up diabetes and HTN Neurology Tech Required: No Is last menstrual period known: No Post menopausal: No Patient : No Allergies No Known Allergies Allergy (Verified 10/25/24 11:50) Tobacco use date assessed: 10/25/24 Fall risk assessment: No Falls in past year Last assessed Fall Risk: 10/25/24 Dental Screening Dental Screen Date: 10/25/24 Did you have a dental visit in the last 12 months?: Yes Did you have a dental problem in the last 6 months where you did not have access to dental care?: No Was dental information given to patient?: Patient has dentist HPI f/u diabetes, HTN HPI Details 69 y/o female presents to f/u diabetes, HTN. BP today 144/67, 60p. She is on lisinopril 20mg daily. Pt notes she had taken her blood pressure meds a bit late today. A1c today 10/25/24 7.0%. [facility] Medical History Microcytic anemia Renal calculi Asthma GERD (gastroesophageal reflux disease) Osteoporosis Diabetes Thyroid disease Elevated cholesterol HTN (hypertension) Surgical History History of esophagogastroduodenoscopy (EGD) H/O colonoscopy Hx of cholecystectomy History of thyroid surgery H/O: hysterectomy Social History Housing: Apartment Alcohol intake: never Patient Tobacco Use Status: Never used Tobacco e-Cigarette/Vaping Use: Never Used Second Hand Smoke Exposure: No Patient : No service: No Current occupational status: retired Current occupational exposures/hazards: No Cognitive needs: No Hearing needs: No Vision needs: No Questionnaire Thrive Questionnaire Date Thrive assessed: 04/10/24 I am a: Patient What is your living situation today?: I have a steady place to live Within the past 12 months, did the food you bought not last and you didn't have the money to get more?: Never true Within the past 12 months, did you worry whether your food would run out before you got money to buy more?: Never true Do you have trouble paying for medicines?: No Do you have trouble getting transportation to medical appointments?: No Do you have trouble paying your heating and electricity bill?: No Do you have trouble taking care of your child, family member or friend?: No Do you have trouble with day-to-day activities such as bathing, preparing meals, shopping, managing finances, etc.?: No Are you currently unemployed and looking for a job?: No Are you interested in more education?: No Please select the resources that you would like help with: None Currently or been in a relationship where the following occur: No concerns reported THRIVE Score: 0 CIRO-7 AMB Questionnaire CIRO-7 Date CIRO - 7 assessed: 11/13/22 Source: Developed by Drs. Jamil Peña, Keyonna Malone, Tarik Mercado and colleagues, with an educational celso from [employer]. Review of Systems Const Denies chills, Denies fatigue, Denies fever(s), Denies headache(s) and Denies weakness ENT Denies dizziness and Denies headache(s) Card Denies dyspnea Resp Denies cough, Denies dyspnea, Denies wheezing and Denies other (shortness of breath) Musc Denies numbness and Denies tingling Neuro Denies dizziness, Denies headache(s), Denies numbness, Denies tingling and Denies weakness Psych Denies anxiety and Denies depression Endo Denies fatigue Aller/Immun Denies wheezing Physical exam (Primary Care) Vital Signs: Last Vital Signs Temp 97.9 F 10/25/24 11:52 Pulse 60 10/25/24 11:52 Resp 16 10/25/24 11:52 BP 144/67 H 10/25/24 11:52 Pulse Ox 98 10/25/24 11:52 Oxygen Delivery Method Room Air 10/25/24 11:52 BMI result Body Mass Index 25.5 Tobacco/Smoking Status: Tobacco use Status Tobacco use date assessed 10/25/24 10/25/24 11:57 Patient Tobacco Use Status Never used Tobacco 10/25/24 11:57 e-Cigarette/Vaping Use Never Used 10/25/24 11:57 Thrive Assessment: Date of Thrive Assessment Date Thrive assessed 04/10/24 10/25/24 11:57 Currently or been in a relationship where the following occur: No concerns reported Const General: well developed; No acute distress Nutritional Appearance: well nourished Orientation/consciousness: patient oriented x3 HENMT Head: Yes normocephalic and Yes atraumatic Eyes General: appearance normal, both eyes and all related structures Pupils: Equal, round and reactive pupils present EOM: EOMs intact bilaterally Resp Effort & Inspection: normal respiratory effort Neuro General: patient oriented x3 and gait normal Cranial nerves: Yes Equal, round and reactive pupils present Psych Affect: normal affect Coding Level of Care Code Est Pt Level 4 (71675) Diagnoses Essential hypertension I10 Diabetes type 2, controlled E11.9 Left ankle pain M25.572 Assessment & Plan Assessment & Plan (1) Essential hypertension: Code(s): I10 - Essential (primary) hypertension Category: Medical Plan: Blood pressure a little above goal of less than 140/90 today Patient notes that she took her medication late No medication changes today. Encouraged weight control, exercise and a diet low in salt/sodium She has an appointment next month for her physical and we will follow-up on her blood pressure again. (2) Diabetes type 2, controlled: Code(s): E11.9 - Type 2 diabetes mellitus without complications Category: Medical Plan: A1c 7.0%. Goal for her is less than 7.0% No medication changes made today. She will work on a diet lower in sugars and starches Will follow-up at next visit in 1 month Followed by Ophthalmology and up-to-date (3) Left ankle pain: Code(s): M25.572 - Pain in left ankle and joints of left foot Category: Medical Plan: Patient had complaint of left ankle pain and swelling at last visit. No swelling today and she says the pain has resolved.
[2024-10-25 11:52] VITALS: BP 144/67; PULSE 60; RESP 16; TEMP 36.6; O2SAT 98; BMI 25.5
--- OUTSIDE RECORDS SUMMARY | 2024-10-25 12:34 | XMS_ITS | Patient Health Record ---
Author Organization [facility] Address [address] [place] [phone] Care Team Providers Care Care Technician Name Role Phone Jamil Umana Luisito [phone] Reason For Referral No Information Plan Of Treatment No Information
== END 2024-10-25 12:42 | disposition home or self-care (01) ==
LOC: HO.HMCFM 11:34
PROVIDERS: PCP Family Medicine; Visit Provider Family Medicine
DX: I10 Essential (primary) hypertension (principal); E11.9 Type 2 diabetes mellitus without complications; M25.572 Pain in left ankle and joints of left foot

== ENCOUNTER → 2024-10-25 11:34 | Outpatient (BNVA) | payer OTHER, SELFPAY | PROVIDERS: PCP Family Medicine; Visit Provider Family Medicine | DX: I10 Essential (primary) hypertension (principal); E11.9 Type 2 diabetes mellitus without complications; M25.572 Pain in left ankle and joints of left foot | CPT/HCPCS: 83036; 99212 ==

== ENCOUNTER 2024-11-13 09:13 | Outpatient (REF) | payer OTHER, SELFPAY ==
--- OUTSIDE RECORDS SUMMARY | 2024-11-13 10:52 | XMS_ITS | Encounter Summary ---
Author Organization [employer] Address [address] [facility] 7 [place] [address] Care Team Providers Care Audiometric Technician Name Role Phone Unavailable Primary Care Provider Unavailabl e Reason for Visit * Reason Comments Med Refill Encounter Details Date Type Department Care Team (Late st Contact Info) Description 09/18/2022 Refill [facility] [address] [place] [address] Shanon Chauhan MD [address] [place] [address] Social History Tobacco Use Types Packs/Day Years [...]
--- OUTSIDE RECORDS SUMMARY | 2024-11-13 10:52 | XMS_ITS | Clinical Summary ---
Author Organization [employer] Address [address] [facility] 7t [place] [address] Care Team Providers Care Customer Operations Associate Name Role Phone Unavailable Primary Care Provider [...] 04/01, 09/02/2018, Additional history exists COVID-19 Vaccine ( - season) 2024 06/06/2020, 05/10/2020 Influenza Vaccine (#1) 2024 , 01/11/2019, 11/30/2017, Additional history exists DTaP/Tdap/Td [...]
--- OUTSIDE RECORDS SUMMARY | 2024-11-13 10:52 | XMS_ITS | Encounter Summary ---
Author Organization [employer] Address [address] [facility] 7 [place] [address] Care Team Providers Care Tuber Machine Operator Name Role Phone Unavailable Primary Care Provider Unavailabl e Reason for Visit * Reason Comments Med Refill Encounter Details Date Type Department Care Team ([facility] st Contact Info) Description 11/16/2022 Refill [facility] [address] [place], [place] [phone] Odalys Mast MD [address] [place], [place] [phone] Social History Tobacco Use Types Packs/Day Years [...]
--- OUTSIDE RECORDS SUMMARY | 2024-11-13 10:52 | XMS_ITS | Encounter Summary ---
Author Organization [employer] Address [address] [facility] 7 [place] [address] Care Team Providers Care Chief Warden Name Role Phone Unavailable Primary Care Provider Unavailabl e Reason for Visit * Reason Comments Med Refill Encounter Details Date Type Department Care Team (Late st Contact Info) Description 03/21/2022 Refill [facility] [address] [place] [address] Shanon Chauhan MD [address] [place] [address] Social History Tobacco Use Types Packs/Day Years [...]
--- OUTSIDE RECORDS SUMMARY | 2024-11-13 10:52 | XMS_ITS | Patient Health Record ---
Author Organization [facility] Address [address] [place] [id number] Care Team Providers Care Building Custodian Name Role Phone Jamil Umana Luisito [phone] Reason For Referral No Information Plan Of Treatment No Information
--- OUTSIDE RECORDS SUMMARY | 2024-11-13 10:52 | XMS_ITS | Encounter Summary ---
Author Organization [employer] Address [address] [facility] 7 [place] [address] Care Team Providers Care Office Clerk Routine Name Role Phone Unavailable Primary Care Provider Unavailabl e Reason for Visit * Reason Comments Med Refill Encounter Details Date Type Department Care Team ([facility] st Contact Info) Description 08/24/2022 Refill [facility] [address] [place], [place] [phone] Odalys Mast MD [address] [place], [place] [phone] Social History Tobacco Use Types Packs/Day Years [...]
[2024-11-13 11:21] LABS: MANUAL DIFF FLAG NO
[2024-11-13 11:30] LABS: Hematocrit 36.8 % (37.0-47.0); Hemoglobin 11.6 g/dl (12.0-16.0); Imm Gran Abs Auto 0.03 X10*3/uL (0.00-0.03); Imm Gran Pct Auto 0.3 % (0.0-0.4); Lymphocytes Absolute Auto 4.0 X10*3/uL (1.2-4.9); Mean Corpuscular HGB Conc 31.5 g/dl (31.0-35.0); Mean Corpuscular Hemoglobin 26.3 pg (27.0-33.0); Mean Corpuscular Volume 83.4 fL (80.0-98.0); NRBC Abs Auto 0.000 X10*3/uL (0.0-0.012); NRBC Pct Auto 0.0 /100WBC (0.0-0.2); Platelet Count 482 X10*3/uL (160-400); Red Blood Count 4.41 X10*6/uL (4.20-5.50); White Blood Count 10.6 X10*3/uL (4.8-10.8)
[2024-11-13 11:35] LABS: Appearance Urine Clear; Glucose Urine UA Negative (Negative); PH 6.0 (5.0-9.0); Specific Gravity - Urine 1.015 (1.005-1.025); UMIC TRIGGER UA YES; UMIC TRIGGER UACC YES
[2024-11-13 11:39] LABS: UACC Culture Trigger YES
[2024-11-13 11:56] LABS: Alanine Aminotransferase 35 U/L (0-31); Albumin Level 4.5 g/dL (3.5-5.0); Alkaline Phosphatase 77 U/L (39-117); Anion Gap 14 (12-20); Aspartate Amino Transferase 30 U/L (5-31); Blood Urea Nitrogen 11 mg/dL (9-16); Calcium 9.3 mg/dL (8.4-10.2); Carbon Dioxide 25 mmol/L (22-29); Chloride 109 mmol/L (96-108); Cholesterol 133 mg/dL (<200); Estimated Glomerular Filt Rate > 60; HDL Cholesterol 55 mg/dL (>40); Potassium 4.6 mmol/L (3.3-5.1); Sodium 143 mmol/L (135-145); Total Protein 7.9 g/dL (6.5-8.0); Triglycerides 83 mg/dL (<150)
== END 2024-11-13 09:14 | disposition home or self-care (01) ==
LOC: HO.WFDLDS 09:13
PROVIDERS: Visit Provider Family Medicine
DX: Z00.00 Encounter for general adult medical examination without abnormal findings (principal); I10 Essential (primary) hypertension; E55.9 Vitamin D deficiency, unspecified
CPT/HCPCS: 36415; 80053; 80061; 81001; 82043; 82306; 82570; 84443; 85025; 87086; 87088; 87186

== ENCOUNTER 2024-11-16 15:01 | Outpatient (AMB) | payer OTHER, SELFPAY ==
--- NOTE | 2024-11-16 15:15 | A.OFFPC_ITS ---
Vital Signs 11/16/24 15:34 Height 5 ft 3 in Weight 144 lb 6 oz BMI 25.6 BP 140/63 H Blood Pressure Location Rt brachial Position Sitting Respiration 16 Pulse 65 Pulse Source Pulse Oximeter Temp 98.6 F Temp Source Oral Pulse Oximetry (%) 98 Oxygen Delivery Method Room Air Intake Visit Reasons: CPE- A1C Needed Intake Note: patient here for CPE Communications Senior Associate Required: Yes Communications Senior Associate Language: Bahraini Information Interpreted: non-clinical & clinical Is last menstrual period known: No Post menopausal: No Patient : No Allergies No Known Allergies Allergy (Verified 11/16/24 15:29) Tobacco use date assessed: 11/16/24 Fall risk assessment: No Falls in past year Last assessed Fall Risk: 11/16/24 Dental Screening Dental Screen Date: 11/16/24 Did you have a dental visit in the last 12 months?: Yes Did you have a dental problem in the last 6 months where you did not have access to dental care?: No Was dental information given to patient?: Patient has dentist HPI CPE- A1C Needed HPI Details 69 y/o female presents for a CPE with f/ u labs and health maintenance. Labs drawn 11/13/24. Reviewed labs with pt. Mild anemia. 4+ urine bacteria seen - culture had salomon wn UTI. Last A1c 10/25/24 7.0%. Triglycerides 83. TC 133. LDL 62. HDL 55. Elevated ALT of 35. Has complaints of a plantar wart L 4th toe. HPI Comments History of Present Illness Details Documentation assistance for Ricardo Gardner MD, was provided by Brendon Roca,? Pest Control Service Sales Agent on at 4:51 PM EST. I, Dr. Gardner, have read, observed, and verified documentation. ? PFSH Medical History Microcytic anemia Renal calculi Asthma GERD (gastroesophageal reflux disease) Osteoporosis Diabetes Thyroid disease Elevated cholesterol HTN (hypertension) Surgical History History of esophagogastroduodenoscopy (EGD) H/O colonoscopy Hx of cholecystectomy History of thyroid surgery H/O: hysterectomy Social History Housing: Apartment Alcohol intake: never Patient Tobacco Use Status: Never used Tobacco e-Cigarette/Vaping Use: Never Used Second Hand Smoke Exposure: No Patient : No service: No Current occupational status: retired Current occupational exposures/hazards: No Cognitive needs: No Hearing needs: No Vision needs: No Questionnaire PHQ-9 Over the last 2 weeks, how often have you been bothered by any of the following problems? 1. Little interest or pleasure in doing things: not at all 2. Feeling down, depressed, or hopeless: not at all 3. Trouble falling or staying asleep, or sleeping too much: not at all 4. Feeling tired or having little energy: not at all 5. Poor appetite or overeating: not at all 6. Feeling bad about yourself - or that you are a failure or have let yourself or your family down: several days 7. Trouble concentrating on things, such as reading the newspaper or watching television: more than half the days 8. Moving or speaking so slowly that other people could have noticed. Or the opposite - being so fidgety or restless that you have been moving around a lot more than usual: not at all 9. Thoughts that you would be better off or of hurting yourself in some way: not at all Total score: 3 Depression Screening Interpretation: Negative Depression Screening Done: Yes 43821 - PHQ-9 Billing: Yes Source: Developed by Drs. Jamil Peña, Keyonna Malone, Tarik Mercado and colleagues, with an educational celso from [employer]. Thrive Questionnaire Date Thrive assessed: 11/16/24 I am a: Patient What is your living situation today?: I have a steady place to live Within the past 12 months, did the food you bought not last and you didn't have the money to get more?: Never true Within the past 12 months, did you worry whether your food would run out before you got money to buy more?: Never true Do you have trouble paying for medicines?: No Do you have trouble getting transportation to medical appointments?: No Do you have trouble paying your heating and electricity bill?: No Do you have trouble taking care of your child, family member or friend?: No Do you have trouble with day-to-day activities such as bathing, preparing meals, shopping, managing finances, etc.?: No Are you currently unemployed and looking for a job?: No Are you interested in more education?: No Please select the resources that you would like help with: None Currently or been in a relationship where the following occur: No concerns reported THRIVE Score: 0 AUDIT C Alcohol Use Questionnaire (AUDIT-C) 1. How often do you have a drink containing alcohol?: Never 3. How often do you have six or more drinks on one occasion?: Never Total Score: 0 Score Reviewed/Action Taken: Yes CIRO-7 AMB Questionnaire CIRO-7 Date CIRO - 7 assessed: 11/16/24 Feeling nervous, anxious, or on edge: 0 = Not at all Not being able to stop or control worryin = Several days Worrying too much about different things: 1 = Several days Trouble relaxin = Not at all Being so restless that it is hard to sit still: 0 = Not at all Becoming easily annoyed or irritable: 2 = More than half the days Feeling afraid as if something awful might happen: 0 = Not at all Total CIRO-7 score (0-4 normal; 5-9 mild; 10-14 moderate; 15-21 severe): 4 Source: Developed by Drs. Jamil Peña, Keyonna Malone, Tarik Mercado and colleagues, with an educational celso from [employer]. CIRO-7 Assessment Billing CIRO-7 Assessment Tool: CIRO-7 Assessment 12038 Review of Systems Const Denies chills, Denies fatigue, Denies fever(s), Denies headache(s) and Denies weakness Eyes Denies change in vision ENT Denies dizziness, Denies headache(s), Denies hearing loss, Denies nasal congestion, Denies sinus pain, Denies sinus pressure and Denies sore throat Card Denies chest pain, Denies lightheadedness, Denies dyspnea and Denies other (palpitations) Resp Denies cough, Denies dyspnea and Denies wheezing GI Denies abdominal pain, Denies melena, Denies hematochezia, Denies change in bowel habits, Denies dyspepsia and Denies nausea Denies hematuria and Denies dysuria Musc Denies abnormal gait, Denies myalgias, Denies arthralgias, Denies numbness and Denies tingling Skin/Breast Denies rash, Denies unusual bruising and Denies wounds Neuro Denies abnormal gait, Denies dizziness, Denies headache(s), Denies memory loss, Denies numbness, Denies Sensory deficit (Neuro), Denies tingling and Denies weakness Psych Denies anxiety, Denies depression and Denies memory loss Endo Denies cold intolerance, Denies fatigue, Denies heat intolerance, Denies polydipsia and Denies polyuria [place]/Lymph Denies easy bleeding and Denies easy bruising Aller/Immun Denies wheezing Physical exam (Primary Care) Vital Signs: Last Vital Signs Temp 98.6 F 11/16/24 15:34 Pulse 65 11/16/24 15:34 Resp 16 11/16/24 15:34 BP 140/63 H 11/16/24 15:34 Pulse Ox 98 11/16/24 15:34 Oxygen Delivery Method Room Air 11/16/24 15:34 BMI result Body Mass Index 25.6 Tobacco/Smoking Status: Tobacco use Status Tobacco use date assessed 11/16/24 11/16/24 15:37 Patient Tobacco Use Status Never used Tobacco 11/16/24 15:15 e-Cigarette/Vaping Use Never Used 11/16/24 15:15 PHQ-9: PHQ-9 Score PHQ-9: Total score 3 11/16/24 16:46 Depression Screening Interpretation: Negative Thrive Assessment: Date of Thrive Assessment Date Thrive assessed 11/16/24 11/16/24 15:43 Currently or been in a relationship where the following occur: No concerns reported Const General: no acute distress, well developed, alert and awake Nutritional Appearance: well nourished Orientation/consciousness: patient oriented x3 HENMT Head: Yes normocephalic and Yes atraumatic Ears: hearing grossly normal bilaterally and TM's normal bilaterally General nose exam: Normal external nose present and Normal nares present Mouth: Normal oral and palatal mucosa present and moist mucous membranes Teeth and gingiva: dentition normal Throat: Yes posterior oropharynx normal Eyes General: appearance normal, both eyes and all related structures Pupils: Equal, round and reactive pupils present and Pupil accommodation reflex normal EOM: EOMs intact bilaterally Neck Neck: Yes normal visual inspection, Yes no lymphadenopathy and Yes trachea midline Thyroid: Thyroid normal Carotids: no bruits Lymphatic: no lymphadenopathy noted Chest Chest palpation & inspection: normal inspection of the chest Resp Effort & Inspection: normal respiratory effort Auscultation: clear to auscultation bilaterally Cardio Rate: regular rate Rhythm: regular rhythm Heart sounds: S1 normal heart sound present, S2 normal heart sound present, no gallops, no murmurs and no rubs Bruits: no abdominal aortic bruits and no carotid bruits GI Palpation (GI): No Abdominal aortic bruit present, Soft to palpation, nontender, No hepatosplenomegaly present and No Rebound tenderness present Auscultation: normal bowel sounds General: Yes no CVA tenderness Back/Spine/Pelvis Back: no CVA tenderness Cervical Spine: cervical ROM normal and No Cervical spine tenderness Thoracic/Lumbar Spine: thoraco-lumbar ROM normal, No pain with thoraco-lumbar ROM, No thoracic spinal tenderness and No lumbar spinal tenderness Skin Lesions: no lesions Rashes: no rashes Trauma: no lacerations or abrasions Wounds: no wounds Nails: normal Neuro General: patient oriented x3 Cranial nerves: Yes Equal, round and reactive pupils present Cognition (Neuro): normal cognition Gait exam (Neuro): Normal gait present Motor exam (neuro): 5/5 motor strength present throughout Sensory Exam: No Sensory deficit (Neuro) Deep tendon reflexes (DTR's): Right patellar reflex intensity grade: 2+ and Left patellar reflex intensity grade: 2+ Extrem Other: Plantar wart at lateral aspect of left 4th toe General: Yes normal to inspection and No edema Psych Appearance: grossly normal Affect: normal affect Attitude: cooperative Thought process: Normal thought process present Coding Level of Care Code Est Pt Level 3 (57943) Est Pt Prev Care >65y(67876) Diagnoses Adult general medical examination Z00.00 Mild anemia D64.9 UTI (urinary tract infection) N39.0 Essential hypertension I10 Diabetes type 2, controlled E11.9 Plantar wart B07.0 Elevated ALT measurement R74.01 Breast cancer screening by mammogram Z12.31 Screening for osteoporosis Z13.820 Screening for colon cancer Z12.11 Additional Codes CIRO-7 Assessment Billing - CIRO-7 Assessment Tool: CIRO-7 Assessment 70948 ([id number]) PHQ-9 - 78599 - PHQ-9 Billing: Yes ([id number]) Assessment & Plan Assessment & Plan (1) Adult general medical examination: Code(s): Z00.00 - Encounter for general adult medical examination without abnormal findings Category: Medical Plan: 69-year-old female presents for complete physical exam Encouraged healthy diet with active lifestyle and plenty of exercise (2) Mild anemia: Code(s): D64.9 - Anemia, unspecified Category: Medical Plan: She is taking iron Repeating labs Follow up in about 6 weeks by telemedicine (3) UTI (urinary tract infection): Code(s): N39.0 - Urinary tract infection, site not specified Category: Medical Plan: Appears to have UTI and I have sent a script for cephalexin (4) Essential hypertension: Code(s): I10 - Essential (primary) hypertension Category: Medical Plan: Blood pressure mildly above goal No medication changes today Encouraged exercise Continue current medication (5) Diabetes type 2, controlled: Code(s): E11.9 - Type 2 diabetes mellitus without complications Category: Medical Plan: Recent A1c 7.0% fair control. No medication changes Continue diabetic diet and exercise (6) Plantar wart: Code(s): B07.0 - Plantar wart Category: Medical Plan: Plantar wart and lateral aspect of left 4th toe Referred to Podiatry (7) Elevated ALT measurement: Code(s): R74.01 - Elevation of levels of liver transaminase levels Category: Medical Plan: Mildly elevated ALT Will recheck this in a few weeks Encouraged good hydration (8) Breast cancer screening by mammogram: Code(s): Z12.31 - Encounter for screening mammogram for malignant neoplasm of breast Category: Medical Plan: Up-to-date with mammogram He will continue annual screening (9) Screening for osteoporosis: Code(s): Z13.820 - Encounter for screening for osteoporosis Category: Medical Plan: Due for repeat bone density test next year She does have osteoporosis and is taking alendronate (10) Screening for colon cancer: Code(s): Z12.11 - Encounter for screening for malignant neoplasm of colon Category: Medical Plan: Last colonoscopy with Dr. Mary Fishman to date Follow-[facility] as recommended Orders: Orders Comprehensive Met. Panel Today R74.01 - Elevation of levels of liver transaminase levels Vitamin B12 and Folate Today D64.9 - Anemia, unspecified, E53.8 - Deficiency of other specified B group vitamins Complete Blood Count Auto Diff Today D64.9 - Anemia, unspecified, Z00.00 - Encounter for general adult medical examination without abnormal findings IRON PROFILE Today D64.9 - Anemia, unspecified Referrals Podiatry Referral B07.0 - Plantar wart Medications: New cephalexin 500 mg PO Q12H 14 caps 0RF 7 days
[2024-11-16 15:34] VITALS: BP 140/63; PULSE 65; RESP 16; TEMP 37; O2SAT 98; BMI 25.6
--- OUTSIDE RECORDS SUMMARY | 2024-11-16 16:39 | XMS_ITS | Encounter Summary ---
Author Organization [employer] Address [address] [facility] 7 [place] [address] Care Team Providers Care Travel Guide Name Role Phone Unavailable Primary Care Provider Unavailabl e Reason for Visit * Reason Comments Med Refill Encounter Details Date Type Department Care Team (Late st Contact Info) Description 09/18/2022 Refill [facility] MED[facility] [address] [place] [address] Shanon Chauhan MD [address] [place] [address] Social History Tobacco Use Types Packs/Day Years [...]
--- OUTSIDE RECORDS SUMMARY | 2024-11-16 16:39 | XMS_ITS | Encounter Summary ---
Author Organization [employer] Address [address] [facility] 7 [place] [address] Care Team Providers Care Sales And Marketing Administrator Name Role Phone Unavailable Primary Care Provider Unavailabl e Reason for Visit * Reason Comments Med Refill Encounter Details Date Type Department Care Team (Late st Contact Info) Description 03/21/2022 Refill [facility] [address] [place] [address] Shanon Chauhan MD [address] [place] [address] Social History Tobacco Use Types Packs/Day Years [...]
--- OUTSIDE RECORDS SUMMARY | 2024-11-16 16:39 | XMS_ITS | Encounter Summary ---
Author Organization [employer] Address [address] [facility] 7 [place] [address] Care Team Providers Care Automatic Buffing Wheel Former Name Role Phone Unavailable Primary Care Provider Unavailabl e Reason for Visit * Reason Comments Med Refill Encounter Details Date Type Department Care Team ([facility] st Contact Info) Description 08/24/2022 Refill [facility] [address] [place], [place] [phone] Odalys Mast MD [address] [place], [place] [phone] Social History Tobacco Use Types Packs/Day Years [...]
--- OUTSIDE RECORDS SUMMARY | 2024-11-16 16:39 | XMS_ITS | Clinical Summary ---
Author Organization [employer] Address [address] [facility] [address] [place] [address] Care Team Providers Care Grain Elevator Operator Name Role Phone Unavailable Primary Care [...]
--- OUTSIDE RECORDS SUMMARY | 2024-11-16 16:39 | XMS_ITS | Encounter Summary ---
Author Organization [employer] Address [address] [facility] 7 [place] [address] Care Team Providers Care Community Health Agent Name Role Phone Unavailable Primary Care Provider Unavailabl e Reason for Visit * Reason Comments Med Refill Encounter Details Date Type Department Care Team ([facility] st Contact Info) Description 11/16/2022 Refill [facility] MED & PEDS [address] [place], [place] [phone] Odalys Mast MD [address] [place], [place] [phone] Social History Tobacco Use Types Packs/Day Years [...]
== END 2024-11-16 16:59 | disposition home or self-care (01) ==
LOC: HO.HMCFM 15:02
PROVIDERS: PCP Family Medicine; Visit Provider Family Medicine
DX: Z00.00 Encounter for general adult medical examination without abnormal findings (principal); E11.9 Type 2 diabetes mellitus without complications; D64.9 Anemia, unspecified; N39.0 Urinary tract infection, site not specified; I10 Essential (primary) hypertension; B07.0 Plantar wart; R74.01 Elevation of levels of liver transaminase levels; Z12.31 Encounter for screening mammogram for malignant neoplasm of breast; Z13.820 Encounter for screening for osteoporosis; Z12.11 Encounter for screening for malignant neoplasm of colon

== ENCOUNTER → 2024-11-16 15:01 | Outpatient (BNVA) | payer OTHER, SELFPAY | PROVIDERS: PCP Family Medicine; Visit Provider Family Medicine | DX: Z00.00 Encounter for general adult medical examination without abnormal findings (principal); D64.9 Anemia, unspecified; N39.0 Urinary tract infection, site not specified; I10 Essential (primary) hypertension; E11.9 Type 2 diabetes mellitus without complications; B07.0 Plantar wart; R74.01 Elevation of levels of liver transaminase levels; E53.8 Deficiency of other specified B group vitamins | CPT/HCPCS: 96127; 99212; 99397 ==

== ENCOUNTER 2024-12-13 11:37 | Outpatient (AMB) | payer OTHER, SELFPAY ==
--- NOTE | 2024-12-13 11:43 | A.OFFVIS_ITS ---
Intake Visit Reasons: follow up/PVR Intake Note: patient presents today for: follow up/PVR urology medications: vitB6, mirabegron blood thinners: none today's PVR: 0mls Assembly Detailer Required: Yes Assembly Detailer Services: Assembly Detailer Present Accompanied by: Family/Other Allergies No Known Allergies Allergy (Verified 12/13/24 13:17) Medication List - Last Reconciled 12/13/24 by IRAJ Al-KIKI acetaminophen 500 mg PO Q6H PRN albuterol sulfate 90 mcg/actuation 2 inhalations inhalation Q4-6H PRN 30 days alendronate 70 mg PO EASTON 28 days bisacodyl (Dulcolax (bisacodyl)) 10 mg (2 x 5 mg) PO BEDTIME blood sugar diagnostic As directed blood sugar diagnostic (FreeStyle Lite Strips) DX: E11.9, test blood sugar once a day, 90 days blood-glucose meter (FreeStyle Lite Meter kit) DX: E11.9, test blood sugar once a day, duration 999 days cephalexin 500 mg PO Q12H 7 days cholecalciferol (vitamin D3) 50 mcg PO BID dulaglutide 3 mg (0.5 mL) subcut QWEEK 90 days ferrous sulfate 325 mg PO DAILY 30 days glipizide 2.5 mg (1/2 x 5 mg) PO BID 90 days lancets (FreeStyle Lancets) Once a Day As directed lancets As directed levothyroxine 100 mcg PO DAILY@0600 lisinopril 20 mg PO DAILY 90 days metformin 850 mg PO TID methylcellulose (laxative) (Citrucel) 500 mg PO DAILY pantoprazole 40 mg PO DAILY@0630 30 days pyridoxine (vitamin B6) 100 mg PO DAILY 90 days simethicone (Gas Relief (simethicone)) 80 mg PO BID-QID PRN 30 days simvastatin 20 mg PO BEDTIME 90 days timolol maleate 0.5% 1 drp ophthalmic (eye) DAILY HPI Comments Details: Josie is a pleasant 69-year-old [place]guill[place]-speaking female patient of Dr. Gardner who was accompanied by her daughter and at today's visit. She presents to the office today for follow-up of her lower urinary tract symptoms and renal cyst. In discussion with the patient today she reports to be doing and feeling well. She reports despite compliance and Myrbetriq as prescribed she continues to experience ongoing lower urinary tract symptoms of urinary urgency, urinary frequency, and mixed urinary incontinence. She has previously trialed oxybutynin without improvement in these lower urinary tract symptoms. Previous workup has included a renal ultrasound 10/22 noting bilateral kidneys with no calculi or hydronephrosis. Right kidney with 4.3, 0.7, and 0.8 cm cyst with benign features that require no imaging follow-up per radiology report. In office urinalysis results reviewed with the patient today. PVR 0 mL. We again discussed potential causes of these lower urinary tract symptoms as well as further treatment options and benefits of these treatment options. All questions were answered. She denies hematuria, dysuria, foul smelling urine, changes to urinary stream, flank pain, fever, and or chills. Discussed the importance of managing diabetes for improvement in urinary symptoms as well as for overall health and well-being. She otherwise offers no issues or concerns at this time. [facility] Medical History Microcytic anemia Renal calculi Asthma GERD (gastroesophageal reflux disease) Osteoporosis Diabetes Thyroid disease Elevated cholesterol HTN (hypertension) Surgical History History of esophagogastroduodenoscopy (EGD) H/O colonoscopy Hx of cholecystectomy History of thyroid surgery H/O: hysterectomy Social History Housing: Apartment Alcohol intake: never Patient Tobacco Use Status: Never used Tobacco e-Cigarette/Vaping Use: Never Used Second Hand Smoke Exposure: No service: No Current occupational status: retired Current occupational exposures/hazards: No Cognitive needs: No Hearing needs: No Vision needs: No Review of Systems Const All systems reviewed & are unremarkable except as noted in HPI and below Reports no additional complaints Eyes Reports no additional complaints ENT Reports no additional complaints Card Reports no additional complaints Resp Reports no additional complaints GI Reports no additional complaints Reports as per HPI Musc Reports no additional complaints Neuro Reports no additional complaints Psych Reports no additional complaints Endo Reports as per HPI Lincoln/Lymph Reports no additional complaints Aller/Immun Reports no additional complaints Physical Exam Const General: cooperative, healthy appearing, comfortable, no acute distress, well developed, alert and awake Orientation/consciousness: patient oriented x3 Limitations: language barrier HEENT Head: Yes normal to inspection, Yes normocephalic and Yes atraumatic Ears: hearing grossly normal bilaterally Eyes General: appearance normal, both eyes and all related structures Neck Neck: Yes normal visual inspection and Yes trachea midline Chest Chest palpation & inspection: normal inspection of the chest Resp Effort & Inspection: normal respiratory effort and able to speak in complete sentences Cardio Rate: regular rate GI Inspection: Yes normal to inspection General: Yes no CVA tenderness Back/Spine/Pelvis Back: no CVA tenderness Skin General skin exam: no rashes or lesions noted Neuro General: patient oriented x3 Extrem General: Yes normal to inspection Psych Appearance: grossly normal and well kempt Mental Status: mental status grossly normal Speech and movement: Normal speech and movement present and Clear speech present Affect: normal affect Attitude: cooperative Thought process: Normal thought process present Thought content: Normal thought content present Insight: Fair insight present (Psych) Judgement: Fair judgement present (Psych) Office Procedures Post Void Residual Post Residual Void Post Void Residual (PVR): 0 [id number] Void Residual by ultrasound Results AMB Urinalysis, Automated UA Leukoctes 0 Mary Alice/uL Last Edit by LUIS ALFREDO Chakraborty on 12/13/24 11:58 UA Nitrite Last Edit by LUIS ALFREDO Chakraborty on 12/13/24 11:58 UA Urobilinogen 0.2 mg/dL Last Edit by LUIS ALFREDO Chakraborty on 12/13/24 11:5 8 UA Protein 0 mg/dL Last Edit by LUIS ALFREDO Chakraborty on 12/13/24 11:58 UA pH 6.0 Last Edit by LUIS ALFREDO Chakraborty on 12/13/24 11:58 UA Blood 0 Yevgeniy/uL Last Edit by LUIS ALFREDO Chakraborty on 12/13/24 11:58 UA Specific [place] 1.010 Last Edit by LUIS ALFREDO Chakraborty on 12/13/24 11: 58 UA Ketone Last Edit by LUIS ALFREDO Chakraborty on 12/13/24 11:58 UA Bilirubin 0 mg/dL Last Edit by LUIS ALFREDO Chakraborty on 12/13/24 11:58 UA Glucose 0 mg/dL Last Edit by LUIS ALFREDO Chakraborty on 12/13/24 11:58 Results Reviewed Results Reviewed: Laboratory Last Values Urine pH (Auto) 6.0 12/13/24 11:58 Specific [place] (Auto) 1.010 12/13/24 11:58 Urine Protein (Auto) 0 mg/dL 12/13/24 11:58 Glucose (UA)(Auto) 0 mg/dL 12/13/24 11:58 Urine Blood (Auto) 0 Yevgeniy/uL 12/13/24 11:58 Urine Bilirubin (Auto) 0 mg/dL 12/13/24 11:58 Urine Urobilinogen (Auto) 0.2 mg/dL 12/13/24 11:58 Leukocyte Esterase (Auto) 0 Mary Alice/uL 12/13/24 11:58 Assessment & Plan Assessment & Plan (1) Renal cyst: Code(s): N28.1 - Cyst of kidney, acquired Category: Medical (2) Stress incontinence: Code(s): N39.3 - Stress incontinence (female) (male) Category: Medical (3) Lower urinary tract symptoms: Code(s): R39.9 - Unspecified symptoms and signs involving the genitourinary system Category: Medical (4) Urinary incontinence, mixed: Code(s): N39.46 - Mixed incontinence Category: Medical Plan In office urinalysis results reviewed with the patient today; as noted above. PVR 0 mL. We discussed potential causes of lower urinary tract symptoms as well as further treatment options and risks and benefits of these treatment options. All questions were answered. Stop Myrbetriq. Will schedule for in office urodynamics Follow-up per doctor's orders; or sooner with any issues, concerns, and or questions. Orders: Orders AMB Post Void Residual by ultrasound Today N39.3 - Stress incontinence (female) (male) AMB Urinalysis Automated Today Z13.9 - Encounter for screening, unspecified Medications: Discontinued mirabegron ER (Myrbetriq) Discontinued Reason: Doctor's Order 25 mg PO DAILY 30 days 30 tabs 3RF N30.10 - Interstitial cystitis (chronic) without hematuria, N32.81 - Overactive bladder, R35.1 - Nocturia, R39.15 - Urgency of urination cephalexin Discontinued Reason: Patient Completed Course 500 mg PO Q12H 7 days 14 caps 0RF Patient Instructions: The patient had an opportunity to ask questions regarding the treatment plan. All questions were answered. Physical exam, labs, and imaging were discussed and reviewed in detail. As well as risks, benefits, and discussion of treatment choices. No major barriers to understanding were identified. The patient expressed understanding and agreement with the above treatment plan. The patient was made aware they should contact our office by phone for worsening of their current condition, the appearance of new symptoms, or with any questions or concerns. Compliance is encouraged with any medications and follow up testing that is ordered. It is a privilege to be allowed the opportunity to participate in? your urological care.? Again, if you have any questions or concerns If you have any questions or concerns please do not hesitate to contact me. The office is [phone]. This note is constructed using voice recognition software. While every effort has been made to ensure accuracy men's custom hair piece consultant errors may have been included. Yours sincerely, JULIA Al Coding Level of Care Code Est Pt Level 3 (09633) Diagnoses Renal cyst N28.1 Stress incontinence N39.3 Lower urinary tract symptoms R39.9 Urinary incontinence, mixed N39.46 CPT Codes Post Residual Void - PVR CPT Code: 27771-Fyam Void Residual by ultrasound ([id number])
== END 2024-12-13 13:07 | disposition home or self-care (01) ==
LOC: HO.HUSH 11:37
PROVIDERS: Visit Provider Nurse Practitioner Family
DX: N28.1 Cyst of kidney, acquired (principal); N39.3 Stress incontinence (female) (male); R39.9 Unspecified symptoms and signs involving the genitourinary system; N39.46 Mixed incontinence; Z13.9 Encounter for screening, unspecified
CPT/HCPCS: 99213

== ENCOUNTER → 2024-12-13 11:37 | Outpatient (BNVA) | payer OTHER, SELFPAY | PROVIDERS: Visit Provider Nurse Practitioner Family | DX: N28.1 Cyst of kidney, acquired (principal); N39.46 Mixed incontinence; R39.9 Unspecified symptoms and signs involving the genitourinary system | CPT/HCPCS: 51798; 81003; 99212 ==

== ENCOUNTER 2024-12-20 10:00 | Outpatient (REF) | payer OTHER, SELFPAY ==
[2024-12-20 11:24] LABS: MANUAL DIFF FLAG NO
[2024-12-20 11:31] LABS: Hematocrit 35.5 % (37.0-47.0); Hemoglobin 11.2 g/dl (12.0-16.0); Imm Gran Abs Auto 0.03 X10*3/uL (0.00-0.03); Imm Gran Pct Auto 0.3 % (0.0-0.4); Lymphocytes Absolute Auto 2.8 X10*3/uL (1.2-4.9); Mean Corpuscular HGB Conc 31.5 g/dl (31.0-35.0); Mean Corpuscular Hemoglobin 26.4 pg (27.0-33.0); Mean Corpuscular Volume 83.7 fL (80.0-98.0); NRBC Abs Auto 0.000 X10*3/uL (0.0-0.012); NRBC Pct Auto 0.0 /100WBC (0.0-0.2); Platelet Count 455 X10*3/uL (160-400); Red Blood Count 4.24 X10*6/uL (4.20-5.50); White Blood Count 10.6 X10*3/uL (4.8-10.8)
[2024-12-20 12:45] LABS: Alanine Aminotransferase 27 U/L (0-31); Albumin Level 4.6 g/dL (3.5-5.0); Alkaline Phosphatase 89 U/L (39-117); Anion Gap 11 (12-20); Aspartate Amino Transferase 21 U/L (5-31); Blood Urea Nitrogen 19 mg/dL (9-16); Calcium 9.2 mg/dL (8.4-10.2); Carbon Dioxide 28 mmol/L (22-29); Chloride 109 mmol/L (96-108); Estimated Glomerular Filt Rate > 60; Iron 59 mcg/dL (30-160); Percent Iron Saturation 18 % (15-50); Potassium 3.9 mmol/L (3.3-5.1); Sodium 144 mmol/L (135-145); Total Iron Binding Capacity 324 mcg/dL (228-428); Total Protein 7.7 g/dL (6.5-8.0); Unsaturated Iron Binding 265 ug/dL
[2024-12-20 13:09] LABS: Folate 10.3 ng/mL (> or = 4.0); Vitamin B12 196 pg/mL (200-900)
[2024-12-20 14:04] LABS: Appearance Urine Clear; Glucose Urine UA Negative (Negative); PH 5.5 (5.0-9.0); Specific Gravity - Urine 1.025 (1.005-1.025); UMIC TRIGGER UACC YES
== END 2024-12-20 10:01 | disposition home or self-care (01) ==
LOC: HO.WFDLDS 10:00
PROVIDERS: Visit Provider Family Medicine
DX: Z00.00 Encounter for general adult medical examination without abnormal findings (principal); D64.9 Anemia, unspecified; E53.8 Deficiency of other specified B group vitamins; R74.01 Elevation of levels of liver transaminase levels
CPT/HCPCS: 36415; 80053; 81001; 81003; 82607; 82746; 83540; 85025